=== PATIENT | female | born 1935 | race Caucasian/White ===

== ENCOUNTER 2023-04-20 18:04 | Emergency (ER) | payer MEDICARE, SELFPAY ==
[2023-04-20] VITALS (17 sets, daily range): BP systolic 160–200; BP diastolic 51–71; PULSE 59–69; RESP 17–30; TEMP 36.8; O2SAT 88–99
--- NOTE | ~2023-04-20 | XR_ITS ---
EXAMINATION: XR chest 1V portable DATE: 04/20/2023 21:29 INDICATION: Shortness of breath with productive cough TECHNIQUE: AP view of the chest was obtained COMPARISON: None FINDINGS: Left subclavian central venous port catheter with distal tip at the superior cavoatrial junction. Air space opacities in the right mid to lower and left lower lung zones. No pleural effusion or pneumotho rax. Cardiomegaly. IMPRESSION: 1. Opacities in the right mid to lower and left lower lung zones which could represent atelectasis, p neumonia, pulmonary edema or some combination thereof. 2. Cardiomegaly. Reviewed, dictated and finalized at location A. T COORDINATOR IMPRESSION: 1. Opacities in the right mid to lower and left lower lung zones which could re present atelectasis, pneumonia, pulmonary edema or some combination thereof. 2. Cardiomegaly.
--- NOTE | 2023-04-20 20:48 | ECG_ITS ---
Measurements Intervals [place] Rate: 64 P: 55 FL: 230 QRS: 72 QRSD: 93 T: 62 QT: 441 QTc: 457 Interpretive Statements SINUS RHYTHM WITH FIRST DEGREE AV BLOCK POSSIBLE LEFT ATRIAL ENLARGEMENT [-0.1mV P WAVE IN V1/V2] INCOMPLETE RIGHT BUNDLE BRANCH BLOCK [90+ ms QRS DURATION, TERMINAL R IN V1/V2, 40+ ms S IN I/aVL/V4/V5/V6] NONSPECIFIC ST ABNORMALITY ABNORMAL ECG NO PREVIOUS ECG AVAILABLE FOR COMPARISON Electronically Signed On 04-21-2023 16:55:16 MARKETING SYSTEMS MANAGER by Fede Chowdhury M.D.
--- NOTE | 2023-04-20 20:49 | ED.URI ---
HPI - URI/Sore Throat General Chief Complaint: Upper Respiratory Infection Stated Complaint: COUGH. LOW O2 Time Seen by Provider: 04/20/23 20:37 History of Present Illness HPI Narrative: Patient brought to the emergency department by her family. She denies history of asthma or COPD. However she has had shortness of breath and cough for the past 5 days. Started on azithromycin by her primary care provider and she is on day 4 with no improvement. Low-grade fever of 99 today at home. No other fevers noted. She has some chest wall discomfort with coughing. She gets short of breath when lying flat or ambulating. He is concerned that her oxygen has been dropping to high 80s at home. Related Data Allergies Allergy/AdvReac Type Severity Reaction Status Date / Time Penicillins Allergy Unknown Verified 04/20/23 21:27 Review of Systems Review of Systems: Negative except for what is documented in the HPI Exam Narrative: GENERAL: Well-appearing, well-nourished, and in no acute distress. wheezing heard HEAD: Normocephalic, atraumatic. EYES: PERRLA and EOMI. ENT: Nares clear, no rhinorrhea or epistaxis. Mucous membranes moist. NECK: Supple. CHEST: mild tachypnea and full cycle wheezing worse with expiration. No respiratory distress. HEART: Regular rate and rhythm. ABDOMEN: Soft, nontender, nondistended. EXTREMITIES: Normal range of motion. No edema. SKIN: Warm, dry, no rash. NEURO: No focal deficits. Alert and oriented x3. PSYCH: Normal mood and affect. Course Course Emergency Course: differential diagnosis includes but not limited to viral illness, bronchiolitis, pneumonia, new onset CHF exam less consistent with congestive heart failure. Labs EKG and chest x-ray ordered patient has full cycle wheezing but in no acute distress Vital Signs Vital signs: Vital Signs Temperature 36.8 C 04/20/23 18:48 Pulse Rate 60 04/20/23 18:48 Respiratory Rate 18 04/20/23 18:48 Blood Pressure 192/63 H 04/20/23 18:48 Pulse Oximetry 98 04/20/23 18:48 Oxygen Delivery Room Air 04/20/23 18:48 Temperature 36.8 C 04/20/23 18:48 Pulse Rate 64 04/21/23 00:02 Respiratory Rate 25 H 04/21/23 00:02 Blood Pressure 179/62 H 04/21/23 00:02 Pulse Oximetry 92 04/21/23 00:02 Oxygen Delivery Room Air 04/20/23 21:36 MDM - URI/Sore Throat MDM Narrative Medical decision making narrative: unclear etiology of patient's presentation. She ambulated and her oxygen levels improved and increased work of breathing resolved. No further wheezing. Chest x-ray shows atelectasis versus pneumonia versus fluid. BNP is very elevated. Family and patient states she does not have a history of congestive heart failure. She does have a supervisor beehive kiln that she can not follow-up with this week though. She is not on any supplemental oxygen. She has been on to the packs in the past few weeks per family. Concern for viral illness. Given option of staying for evaluation by Cardiology or going home for follow-up. Patient has a very reliable family structure and physicians that she can see quickly. Will DC with low-dose Lasix until she can see her supervisor beehive kiln as well as amoxicillin. Likely viral the patient's family members improved with amoxicillin. Will also DC with supportive medications. Strict return precautions discussed shared decision making with patient and family regarding plan for outpatient follow-up and when to return to the emergency department for further evaluation and possible admission Lab Data 04/20/23 21:17 04/20/23 21:17 Labs: Lab Results 04/20/23 04/20/23 Range/Units 20:28 21:17 WBC 12.3 H (4.5-10.0) K/mm3 RBC 3.74 L (4.2-5.4) M/mm3 Hgb 9.6 L (12.0-15.0) g/dL Hct 31.4 L (37.0-47.0) % MCV 84.0 (80-100) fl MCH 25.7 L (26-34) pg MCHC 30.6 L (32-36) g/dl RDW 16.2 H (11.5-14.5) % Plt Count 360 (150-375) k/mm3 MPV 9.4 (7.4-
[2023-04-20] MEDS: ALBUTEROL SULFATE NEB 2.5 MG/3 ML INH 5 MG INHALATION ×2 (21:05→22:37)
[2023-04-20 21:11] LABS: Influenza A QL RT-PCR Negative (Negative); Influenza B QL RT-PCR Negative (Negative); RSV RNA, RT-PCR Negative (Negative); SARS-CoV-2 RNA PCR Negative (Negative)
[2023-04-20 21:22] LABS: Basophils Absolute Auto 0.1 K/mm3 (0.0-0.1); Basophils Percent Auto 0.6 % (0.2-1.2); Eosinophils Absolute Auto 0.2 K/mm3 (0-0.3); Eosinophils Percent Auto 1.6 % (0-4.4); Hematocrit 31.4 % (37.0-47.0); Hemoglobin 9.6 g/dL (12.0-15.0); Immature Granulocyte Absolute 0.12 K/mm3 (0.00-0.031); Lymphocytes Percent Auto 14.6 % (18.3-44.2); Mean Corpuscular HGB Conc 30.6 g/dl (32-36); Mean Corpuscular Hemoglobin 25.7 pg (26-34); Mean Platelet Volume 9.4 fl (7.4-10.4); Monocytes Absolute Auto 1.3 K/mm3 (0.1-0.6); Monocytes Percent Auto 10.2 % (2.6-8.5); Neutrophils Absolute Auto 8.9 K/mm3 (1.3-6.7); Platelet Count Result 360 k/mm3 (150-375); Red Blood Count 3.74 M/mm3 (4.2-5.4); Red Cell Distribution Width 16.2 % (11.5-14.5); White Blood Count 12.3 K/mm3 (4.5-10.0)
[2023-04-20] MEDS: methylPREDNISolone SOD SUCC 125 MG VIAL IV PUSH (21:27)
[2023-04-20 21:35] LABS: Lactic Acid Reflex 0.9 mmol/L (0.7-2.0)
[2023-04-20 21:36] LABS: Alanine Aminotransferase 13 U/L (6-35); Albumin Level 3.6 g/dL (3.5-5.1); Alkaline Phosphatase 109 U/L (38-126); Anion Gap 11 mmol/L (8-16); Aspartate Amino Transferase 36 U/L (14-36); Bilirubin,Total 0.6 mg/dL (0.2-1.3); Blood Urea Nitrogen 38 mg/dL (7-17); Calcium 8.2 mg/dL (8.4-10.2); Carbon Dioxide 17 mmol/L (22-30); Chloride 106 mmol/L (98-107); Estimated CRCL calculation 22 ml/min; Estimated Glomerular Filt Rate 25; Glucose 170 mg/dL (65-110); Potassium 4.4 mmol/L (3.4-5.0); Sodium 134 mmol/L (137-145)
[2023-04-20 21:46] LABS: NT Pro B Type Natriuretic Pept 10300 pg/mL (19.9-100); Troponin I 0.027 ng/mL (0.000-0.034)
[2023-04-20 22:06] LABS: Procalcitonin 0.2 ng/mL
--- NOTE | 2023-04-20 22:20 | PC.NURSE ---
Resp notified of need for repeat neb. Pt cont to have wheezing.
[2023-04-20] MEDS: hydrALAZINE HCL 20 MG/ML VIAL 10 MG IV PUSH (22:29)
[2023-04-21 00:02] VITALS: BP 179/62; PULSE 64; RESP 25; O2SAT 92
[2023-04-21 00:03] VITALS: PULSE 63; RESP 28
[2023-04-21 00:24] VITALS: O2SAT 95
[2023-04-21 00:30] VITALS: O2SAT 96
== END 2023-04-21 00:56 | disposition home or self-care (01) ==
PROVIDERS: Emergency Provider Emergency Medicine; PCP Nurse Practitioner Family
DX: J06.9 Acute upper respiratory infection, unspecified (principal); R79.89 Other specified abnormal findings of blood chemistry; R91.8 Other nonspecific abnormal finding of lung field; Z20.822 Contact with and (suspected) exposure to COVID-19
CPT/HCPCS: 36415; 71045; 80053; 83605; 83880; 84145; 84484; 85025; 87637; 93005; 94640; 96374; 96375; 99284; J0360; J2930

== ENCOUNTER 2023-12-03 14:47 | Outpatient (CLI) | payer MEDICARE, SELFPAY ==
[2023-12-03 15:08] LABS: Basophils Percent Auto 0.6 % (0.2-1.2); Eosinophils Absolute Auto 0.3 K/mm3 (0-0.3); Eosinophils Percent Auto 4.5 % (0-4.4); Hematocrit 32.1 % (37.0-47.0); Immature Granulocyte Absolute 0.04 K/mm3 (0.00-0.031); Immature Granulocyte Percent A 0.6 % (0-0.5); Lymphocytes Absolute Auto 1.78 K/mm3 (0.9-3.2); Lymphocytes Percent Auto 27.4 % (18.3-44.2); Mean Corpuscular HGB Conc 31.2 g/dl (32-36); Mean Corpuscular Hemoglobin 27.2 pg (26-34); Mean Corpuscular Volume 87.2 fl (80-100); Mean Platelet Volume 8.9 fl (7.4-10.4); Monocytes Absolute Auto 0.6 K/mm3 (0.1-0.6); Monocytes Percent Auto 9.1 % (2.6-8.5); Neutrophils Absolute Auto 3.8 K/mm3 (1.3-6.7); Neutrophils Percent Auto 57.8 % (45.5-73.1); Platelet Count Result 261 k/mm3 (150-375); Red Blood Count 3.68 M/mm3 (4.2-5.4); Red Cell Distribution Width 15.1 % (11.5-14.5); White Blood Count 6.5 K/mm3 (4.5-10.0)
[2023-12-03 16:47] LABS: Iron 64 ug/dL (37-170)
[2023-12-03 16:52] LABS: Alanine Aminotransferase 15 U/L (6-35); Alkaline Phosphatase 77 U/L (38-126); Anion Gap 9 mmol/L (4-12); Aspartate Amino Transferase 18 U/L (14-36); Bilirubin,Total 0.4 mg/dL (0.2-1.3); Blood Urea Nitrogen 60 mg/dL (7-17); Carbon Dioxide 22 mmol/L (22-30); Chloride 106 mmol/L (98-107); Estimated Glomerular Filt Rate 27; Glucose 129 mg/dL (65-110); Lactate Dehydrogenase 178 U/L (120-246); Potassium 4.5 mmol/L (3.4-5.0); Sodium 137 mmol/L (137-145)
[2023-12-03 17:02] LABS: Percent Iron Saturation 23 % (20-50)
[2023-12-03 18:04] LABS: Folic Acid 4.3 ng/mL (2.76->20)
[2023-12-07 15:39] LABS: Methylmalonic Acid 338 nmol/L (85-423)
[2023-12-11 12:24] LABS: Soluble Transferrin Receptor 1.91 mg/L (0.76-1.76)
== END 2023-12-03 14:48 | disposition home or self-care (01) ==
LOC: ANHLAB 14:49
PROVIDERS: Nurse Practitioner Family; PCP Nurse Practitioner Family; Visit Provider Internal Medicine Hematology & Oncology
DX: N18.4 Chronic kidney disease, stage 4 (severe) (principal); D63.1 Anemia in chronic kidney disease
CPT/HCPCS: 36415; 80053; 82607; 82728; 82746; 83540; 83550; 83615; 83921; 84238; 85025

== ENCOUNTER 2025-02-27 14:44 | Emergency (ER) | payer MEDICARE, SELFPAY ==
--- NOTE | ~2025-02-27 | CT_ITS ---
CT abdomen pelvis wo con INDICATION:l lower back/flank pain, hx 1 kidney . COMPARISON: None. TECHNIQUE: Axial 2.5 mm images of the abdomen were obtained without IV or oral contrast. Diagnostic sensitivity is limited due to lack of IV contrast. FINDINGS: The lung bases are clear. The liver parenchyma is unremarkable. No intrahepatic mass or ductal dilatation is evident. The gallbladder is unremarkable. The pancreas and spleen are normal in appearance. The adrenal glands are symmetric in size. Right kidney is absent. Lobulated contour of the left kidney is noted. No intrarenal stones are noted. There is no hydronephrosis. Evaluation of the stomach and bowel loops are limited due to lack of oral contrast. There are no bowel obstruction or evidence of acute appendicitis. There is small hiatal hernia. There is colonic diverticulosis without evidence of acute diverticulitis. The bladder and rectum are normal. No free intraperitoneal fluid or air is evident. There is no significant retroperitoneal lymphadenopathy. The aorta, visceral vessels and renal arteries demonstrate normal caliber. The lower thoracic and lumbar vertebrae are in normal alignment. IMPRESSION: No acute abnormality is noted in the abdomen and pelvis. Colonic diverticulosis without evidence of acute diverticulitis. Right kidney is absent. There is lobulated contour of the left kidney. All CT scans at this facility are performed using low dose modulation techniques as appropriate to perform exam including the following: automated exposure control; use of iterative reconstruction technique; adjustment of the mA and/or kV according to patient size (this includes techniques or standardized protocols for targeted exams where dose is matched to indication/reason for exam). Reviewed, dictated and finalized at location S. IMPRESSION: No acute abnormality is noted in the abdomen and pelvis. Colonic diverticulosis without evidence of acute diverticulitis. Right kidney is absent. There is lobulated contour of the left kidney. All CT scans at this facility are performed using low dose modulation techniqu es as appropriate to perform exam including the following: automated exposure c ontrol; use of iterative reconstruction technique; adjustment of the mA and/or kV according to patient size (this includes techniques or standardized protocol s for targeted exams where dose is matched to indication/reason for exam).
[2025-02-27 14:50] VITALS: BP 224/67; PULSE 60; RESP 18; TEMP 36.7; O2SAT 99
--- NOTE | 2025-02-27 16:31 | ED_ITS ---
HPI - Back Pain/Injury General Chief Complaint: Back Pain/Injury <NESSA Gomes Last Filed: 02/27/25 16:49> Stated Complaint: back pain, hx kidney issues <NESSA Gomes Last Filed: 02/27/25 16:49> Time Seen by Provider: 02/27/25 16:31 <NESSA Gomes Last Filed: 02/27/25 16:49> Focused HPI: Patient is an 89 y/o female who presents to the ED with c/o L sided back pain. Patient reports having pain in her L mid back for the past 1.5 weeks. Family member at bedside reports patient recently went on a long car trip where she was sitting for a prolonged period and developed the pain afterwards. Pain does radiates across lower back and intermittently down LLE. Denies abd pain. Patient is concerned because she only has 1 kidney (left-sided) and states it functions at a decreased level. Was referred to the ED by her business analysis consultant, Dr. Del Valle. Denies dysuria, hematuria, N/V, fevers. Patient was notably hypertensive upon arrival. Family states patient's BP is always elevated at the doctor's office. GENERAL: Elderly, obese with BMI of 37.5, and in no acute distress. HEAD: Normocephalic, atraumatic. CHEST: Clear to auscultation. ?No respiratory distress. HEART: Regular rate and rhythm.? MSK: Mild diffuse tenderness in lower thoracic/lumbar spine, L flank region NEURO: ?Alert and oriented x3. Patient screened in triage and initial orders placed.? ?Additional care and disposition to be based upon?diagnostic testing and treatment. <NESSA Gomes Last Filed: 02/27/25 16:49> Source: patient <NESSA Gomes Last Filed: 02/27/25 16:49> Mode of arrival: ambulatory <NESSA Gomes Last Filed: 02/27/25 16:49> Limitations: no limitations <NESSA Gomes Last Filed: 02/27/25 16:49> Related Data Home Medications: Home Medications ?Medication ?Instructions ?Recorded ?Confirmed ?Last Taken ?Type amlodipine 10 mg tablet mg PO 01/20/24 04/20/24 Unkn own History calcitriol 0.25 mcg capsule mcg PO 01/20/24 04/20/24 U nknown History carvedilol 6.25 mg tablet mg PO 01/20/24 04/20/24 Unkn own History ezetimibe 10 mg tablet mg PO 01/20/24 04/20/24 Unkn own History insulin glargine 100 unit/mL (3 unit subcut 01/20/24 1 06/21/23 Unknown History mL) subcutaneous pen (Lantus Solostar U-100 Insulin) letrozole 2.5 mg tablet mg PO 01/20/24 04/20/24 Unkn own History losartan 100 mg tablet mg PO 01/20/24 04/20/24 Unkn own History warfarin 4 mg tablet mg PO 01/20/24 04/20/24 Unkn own History citalopram 20 mg tablet 20 mg PO DAILY 04/20/2404/10 Unknown History <Chapis Branham PA-C - Last Filed: 02/27/25 16:49> Allergies/Adverse Reactions: Allergies Allergy/AdvReac Type Severity Reaction Status Date / Time Penicillins AdvReac Severe Blister Verified 04/27/24 07:11 <Chapis Branham PA-C - Last Filed: 02/27/25 16:49> [facility] Past Medical History Medical History: Medical History Uterine fibroid Breast cancer History of kidney cancer <Chapis Branham PA-C - Last Filed: 02/27/25 16:49> Surgical History Surgical History: Surgical History History of lumpectomy H/O: hysterectomy <Chapis Branham PA-C - Last Filed: 02/27/25 16:49> Family History Family History: Family History Other Acute myocardial infarction Diabetes mellitus <Chapis Branham PA-C - Last Filed: 02/27/25 16:49> Social History Social History: Social History Smoking status: Never smoker Second hand tobacco smoke exposure: No Alcohol intake: never Substance use: never Substance use type: does not use Do You Feel Safe in your Home?: Yes Lack of Transportation: No Lack of Food: Never True Current Housing: I Have Housing Concerned About Future Housing: No Difficulty Paying Gas/Electric Bills: No Difficulty Paying for Meds: No Currently Unemployed: No Education: High School Diploma/GED Difficulty w/ Childcare or Family Care: No Living arrangements: with family Occupation/Education: retired Additional occupation/education comments: [employer] Gender identity (if verbalized by the patient): Female <NESSA Gomes Last Filed: 02/27/25 16:49> Course Vital Signs Vital signs: Vital Signs Temperature 36.7 C 02/27/25 14:50 Pulse Rate 60 02/27/25 14:50 Respiratory Rate 18 02/27/25 14:50 Blood Pressure 224/67 H 02/27/25 14:50 Pulse Oximetry 99 02/27/25 14:50 Oxygen Delivery Room Air 02/27/25 14:50 Temperature 35.5 C L 02/27/25 19:12 Pulse Rate 50 L 02/27/25 19:12 Respiratory Rate 19 02/27/25 19:12 Blood Pressure 217/67 H 02/27/25 19:12 Pulse Oximetry 98 02/27/25 19:12 Oxygen Delivery Room Air 02/27/25 14:50 <Chapis Branham PA-C - Last Filed: 02/27/25 16:49> Vital Signs Temperature 36.7 C 02/27/25 14:50 Pulse Rate 60 02/27/25 14:50 Respiratory Rate 18 02/27/25 14:50 Blood Pressure 224/67 H 02/27/25 14:50 Pulse Oximetry 99 02/27/25 14:50 Oxygen Delivery Room Air 02/27/25 14:50 Temperature 35.5 C L 02/27/25 19:12 Pulse Rate 50 L 02/27/25 19:12 Respiratory Rate 19 02/27/25 19:12 Blood Pressure 217/67 H 02/27/25 19:12 Pulse Oximetry 98 02/27/25 19:12 Oxygen Delivery Room Air 02/27/25 14:50 <Dick Menjivar MD - Last Filed: 02/28/25 02:46> MDM - Back Pain/Injury MDM Narrative Medical decision making narrative: MSE bY JAIME in triage. <MARGE Gomes-C - Last Filed: 02/27/25 16:49> MSE bY JAIME in triage. 89 y/o female who presents to the ED with c/o L sided back pain. Patient reports having pain in her L mid back for the past 1.5 weeks. Family member at bedside reports patient recently went on a long car trip where she was sitting for a prolonged period and developed the pain afterwards. Pain does radiates across lower back and intermittently down LLE. Denies abd pain. Patient is concerned because she only has 1 kidney (left-sided) and states it functions at a decreased level. Was referred to the ED by her business analysis consultant, Dr. Del Valle. Denies dysuria, hematuria, N/V, fevers. Patient is overall well-appearing. Chronic hypertension. Did not take her evening medications yet. No chest pain, shortness of breath, nausea vomiting, swelling, weakness, fatigue or any stroke symptoms. Patient is afebrile. Unremarkable physical examination. Some reproducible low lumbar back pain and paraspinal in the left side but no midline tenderness. No CVA tenderness. Suspect musculoskeletal pain but given her significant medical history well to rule out kidney stone, pyelonephritis, urinary tract infection. CT scan obtained as well as laboratory studies urinalysis. Urinalysis shows signs of UTI. Kidney function around her baseline with her solitary kidney. CT scan shows no abnormalities. Started on Rocephin and safe for discharge with PCP and her follow-up with her business analysis consultant already scheduled for 2 weeks from now. Will be sent home with antibiotics. <Dick Menjivar MD - Last Filed: 02/28/25 02:46> Medical Records Attestation: I reviewed the patient's medical records. <Dick Menjivar MD - Last Filed: 02/28/25 02:46> Lab Data Attestation: I reviewed the patient's lab results. <Dick Menjivar MD - Last Filed: 02/28/25 02:46> Result diagrams: 02/27/25 17:40 02/27/25 17:40 <Chapis Branham PA-C - Last Filed: 02/27/25 16:49> Labs: Lab Results 02/27/25 02/27/25 Range/Units 17:40 19:45 WBC 6.8 (4.5-10.0) K/mm3 RBC 3.69 L (4.2-5.4) M/mm3 Hgb 9.4 L (12.0-15.0) g/dL Hct 31.0 L (37.0-47.0) % MCV 84.0 (80-100) fl MCH 25.5 L (26-34) pg MCHC 30.3 L (32-36) g/dl RDW 17.4 H (11.5-14.5) % Plt Count 276 (150-375) k/mm3 MPV 9.5 (7.4-10.4) fl Immature Gran % (Auto) 0.3 (0-0.5) % Neut % (Auto) 50.9 (45.5-73.1) % Lymph % (Auto) 32.9 (18.3-44.2) % [place] % (Auto) 9.0 H (2.6-8.5) % Eos % (Auto) 6.2 H (0-4.4) % Baso % (Auto) 0.7 (0.2-1.2) % Lymph # (Auto) 2.23 (0.9-3.2) K/mm3 [place] # (Auto) 0.6 (0.1-0.6) K/mm3 Eos # (Auto) 0.4 H (0-0.3) K/mm3 Baso # (Auto) 0.1 (0.0-0.1) K/mm3 Abs Immat Gran (auto) 0.02 (0.00-0.031) K/mm3 Absolute Neuts (auto) 3.5 (1.3-6.7) K/mm3 Absolute Nucleated RBC 0.000 (0.0-0.012) K/mm3 Nucleated RBC % 0.0 (0.0-0.2) % PT 26.1 H (11.1-14.7) Seconds INR 2.5 APTT 40.5 H (22.3-36.8) Seconds Sodium 137 (137-145) mmol/L Potassium 4.6 (3.4-5.0) mmol/L Chloride 108 H (98-107) mmol/L Carbon Dioxide 19 L (22-30) mmol/L Anion Gap 10 (4-12) mmol/L BUN 49 H D (7-17) mg/dL Creatinine 1.97 H (0.7-1.0) mg/dL Estim Creat Clear Calc 19 ml/min Estimated GFR 24 L (59 - ) Glucose 132 H (65-110) mg/dL Calcium 8.7 (8.4-10.2) mg/dL Total Bilirubin 0.5 (0.2-1.3) mg/dL AST 22 (14-36) U/L ALT 14 (6-35) U/L Alkaline Phosphatase 98 (38-126) U/L Total Protein 7.2 (6.3-8.2) g/dL Albumin 3.7 (3.5-5.1) g/dL Urine Color Yellow (Yellow) Urine Appearance Turbid H (Clear) Urine pH 5.5 (5.0-9.0) Ur Specific [place] 1.011 (1.001-1.035) Urine Protein 3+ H (Negative) mg/dL Urine Glucose (UA) Negative (Negative) mg/dL Urine Ketones Negative (Negative) mg/dL Ur Blood (Man) 1+ H (Negative) Urine Nitrate Negative (Negative) Urine Bilirubin Negative (Negative) Urine Urobilinogen 0.2 (<2.0) mg/dL Add Ur Microanalysis Reviewed Leukocyte Esterase Rfl 3+ H (Negative) AIDA/UL Urine RBC 3-5 H (0-2) /hpf Urine WBC >100 H (0-3) /hpf Ur Squamous Epith Cells None seen (Few) /hpf Urine Bacteria None seen /hpf Urine Casts 0-2 <Chapis Branham PA-C - Last Filed: 02/27/25 16:49> Lab Results 02/27/25 02/27/25 Range/Units 17:40 19:45 WBC 6.8 (4.5-10.0) K/mm3 RBC 3.69 L (4.2-5.4) M/mm3 Hgb 9.4 L (12.0-15.0) g/dL Hct 31.0 L (37.0-47.0) % MCV 84.0 (80-100) fl MCH 25.5 L (26-34) pg MCHC 30.3 L (32-36) g/dl RDW 17.4 H (11.5-14.5) % Plt Count 276 (150-375) k/mm3 MPV 9.5 (7.4-10.4) fl Immature Gran % (Auto) 0.3 (0-0.5) % Neut % (Auto) 50.9 (45.5-73.1) % Lymph % (Auto) 32.9 (18.3-44.2) % [place] % (Auto) 9.0 H (2.6-8.5) % Eos % (Auto) 6.2 H (0-4.4) % Baso % (Auto) 0.7 (0.2-1.2) % Lymph # (Auto) 2.23 (0.9-3.2) K/mm3 [place] # (Auto) 0.6 (0.1-0.6) K/mm3 Eos # (Auto) 0.4 H (0-0.3) K/mm3 Baso # (Auto) 0.1 (0.0-0.1) K/mm3 Abs Immat Gran (auto) 0.02 (0.00-0.031) K/mm3 Absolute Neuts (auto) 3.5 (1.3-6.7) K/mm3 Absolute Nucleated RBC 0.000 (0.0-0.012) K/mm3 Nucleated RBC % 0.0 (0.0-0.2) % PT 26.1 H (11.1-14.7) Seconds INR 2.5 APTT 40.5 H (22.3-36.8) Seconds Sodium 137 (137-145) mmol/L Potassium 4.6 (3.4-5.0) mmol/L Chloride 108 H (98-107) mmol/L Carbon Dioxide 19 L (22-30) mmol/L Anion Gap 10 (4-12) mmol/L BUN 49 H D (7-17) mg/dL Creatinine 1.97 H (0.7-1.0) mg/dL Estim Creat Clear Calc 19 ml/min Estimated GFR 24 L (59 - ) Glucose 132 H (65-110) mg/dL Calcium 8.7 (8.4-10.2) mg/dL Total Bilirubin 0.5 (0.2-1.3) mg/dL AST 22 (14-36) U/L ALT 14 (6-35) U/L Alkaline Phosphatase 98 (38-126) U/L Total Protein 7.2 (6.3-8.2) g/dL Albumin 3.7 (3.5-5.1) g/dL Urine Color Yellow (Yellow) Urine Appearance Turbid H (Clear) Urine pH 5.5 (5.0-9.0) Ur Specific [place] 1.011 (1.001-1.035) Urine Protein 3+ H (Negative) mg/dL Urine Glucose (UA) Negative (Negative) mg/dL Urine Ketones Negative (Negative) mg/dL Ur Blood (Man) 1+ H (Negative) Urine Nitrate Negative (Negative) Urine Bilirubin Negative (Negative) Urine Urobilinogen 0.2 (<2.0) mg/dL Add Ur Microanalysis Reviewed Leukocyte Esterase Rfl 3+ H (Negative) AIDA/UL Urine RBC 3-5 H (0-2) /hpf Urine WBC >100 H (0-3) /hpf Ur Squamous Epith Cells None seen (Few) /hpf Urine Bacteria None seen /hpf Urine Casts 0-2 <Dick Menjivar MD - Last Filed: 02/28/25 02:46> Discharge Plan Discharge Clinical Impression: UTI (urinary tract infection) <Chapis Branham PA-C - Last Filed: 02/27/25 16:49> Patient Disposition: Home <Chapis Branham PA-C - Last Filed: 02/27/25 16:49> Condition: Stable <Chapis Branham PA-C - Last Filed: 02/27/25 16:49> Instructions: Antibiotic Form, Urinary Tract Infection in Women (DC) <Chapis Branham PA-C - Last Filed: 02/27/25 16:49> Additional Instructions: You do not have any bacteria in the urine but large amounts of white blood cells and leukocyte esterase which are markers of infection. We will treat this empirically with antibiotics for next 7 days. Maintain good hydration. Take your blood pressure medicines when you go home. Return with any fevers, nausea, vomiting, abdominal pain, weakness or any other concerns. Follow-up with regular doctor and business analysis consultant. <Chapis Branham PA-C - Last Filed: 02/27/25 16:49> Patient Language: Armenian <Chapis Branham PA-C - Last Filed: 02/27/25 16:49> Prescriptions: New cefuroxime axetil 500 mg tablet 500 mg PO Q12H 7 Days Qty: 14 0RF No Action amlodipine 10 mg tablet PO ezetimibe 10 mg tablet PO losartan 100 mg tablet PO warfarin 4 mg tablet PO calcitriol 0.25 mcg capsule PO insulin glargine [Lantus Solostar U-100 Insulin] 100 unit/mL (3 mL) insulin pen subcut letrozole 2.5 mg tablet PO carvedilol 6.25 mg tablet PO citalopram 20 mg tablet 20 mg PO DAILY <Chapis Branham PA-C - Last Filed: 02/27/25 16:49> Follow-up/Referrals: Max,MD Carrie [Primary Care Provider, Unknown] <Chapis Branham PA-C - Last Filed: 02/27/25 16:49> Time of Disposition: 20:35 <Chapis Branham PA-C - Last Filed: 02/27/25 16:49> 20:35 <Dick Menjivar MD - Last Filed: 02/28/25 02:46>
--- NOTE | 2025-02-27 16:45 | ECG_ITS ---
Test Date: 2025-02-27 17:40:32 Measurements Intervals [place] Rate: 58 P: 45 VT: 243 QRS: 69 QRSD: 87 T: 73 QT: 445 QTc: 440 Interpretive Statements SINUS BRADYCARDIA WITH FIRST DEGREE AV BLOCK WITH OCCASIONAL SUPRAVENTRICULAR PREMATURE COMPLEXES POSSIBLE RIGHT VENTRICULAR CONDUCTION DELAY DELAYED PRECORDIAL R/S TRANSITION CANNOT R/O SEPTAL INFARCT, AGE INDETERMINATE CONSIDER INFERIOR INFARCT, AGE INDETERMINATE BASELINE ARTIFACT- I, II, AVR, AVL ABNORMAL ECG No previous ECG available for comparison Electronically Signed On 02-27-2025 19:43:11 CDT by Wilber Dyer D.O.
--- OUTSIDE RECORDS SUMMARY | 2025-02-27 17:13 | XMS_ITS ---
Author [place] [facility] [place] [facility] Address [address] [place] [address] Care Team Providers Care Political Geographer Name Role Phone Sarah Hardin MD Unavailable Humaira Amato MD Unavailable [phone] Berna Conte PhD Unavailable [phone] Qi Hope MD Unavailable [phone] Anuel Del Valle DO Unavailable [phone] Ag Santana MD Primary Care Provide r Jason Robles MD Unavailable [phone] Active Problems Problem Noted Date Diagnosed Date Hypertension associated with type 2 diabetes emily litus 12/14/2023 Assessment & Plan (12/14/2023 1:48 PM CDT): Chronic problem. Currently taking carvedilol 6.25mg bid, losartan 100mg daily, amlodipine 10mg daily. Renal is fuentes her spironolactone. 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 Had FNA 05/2019: benign. US completed 05/2020 w/o changes; shows multinodular goiter. TFTs WNL 10/2023. Assessment & Plan (07/13/2023 1:35 PM LEGISLATIVE DIRECTOR): S/p right thyroid nodule FNA biopsy 06/07/2019 Benign cytology Repeat follow up thyroid ultrasound performed 05/2020 noted stable thyroid nodules No compression symptoms Continue clinical monitoring Assessment & Plan (01/06/2023 2:02 PM CDT): No compressive symptoms. Had FNA 05/2019: benign. US completed 05/2020 w/o changes; shows multinodular goiter. Assessment & Plan (06/02/2022 10:38 AM LEGISLATIVE DIRECTOR): S/p right thyroid nodule FNA biopsy 06/07/2019 Benign cytology Repeat follow up thyroid ultrasound performed 05/2020 noted stable thyroid nodules No compression symptoms Assessment & Plan (12/03/2020 8:37 PM CDT): S/p right thyroid nodule FNA biopsy 06/07/2019 Benign cytology No compression symptoms Repeat follow up thyroid ultrasound performed 05/2020 noted stable thyroid nodules Assessment & Plan (08/13/2020 8:30 PM CDT): S/p right thyroid nodule FNA biopsy 06/07/2019 Benign cytology No compression symptoms Repeat follow up thyroid ultrasound performed 05/2020 noted stable thyroid nodules Assessment & Plan (06/06/2020 8:35 AM LEGISLATIVE DIRECTOR): S/p right thyroid nodule FNA biopsy 06/07/2019 Benign cytology No compression symptoms Repeat follow up thyroid ultrasound performed today in office, noted stable thyroid nodules Assessment & Plan (04/13/2020 9:50 AM LEGISLATIVE DIRECTOR): S/p right thyroid nodule FNA biopsy 06/07/2019 Benign cytology No compression symptoms Repeat follow up thyroid ultrasound during next follow up visit Assessment & Plan (11/21/2019 4:11 PM CDT): S/p right thyroid nodule FNA biopsy 06/07/2019 Benign cytology No compression symptoms Recheck TSH Repeat follow up thyroid ultrasound during next follow up visit Assessment & Plan (03/25/2019 12:33 AM LEGISLATIVE DIRECTOR): Noted right thyroid nodule on PET scan 05/2018 Performed a thyroid ultrasound in office today - see full report Bilateral thyroid nodules Plan to perform FNA biopsy of bilateral thyroid nodules No compression symptoms Abscess of right breast 12/03/2018 Encounter for follow-up surveillance of breast c ancer 11/15/2018 Malignant neoplasm of right female breast 2018 Overview (09/06/2018): Added automatically from request for surgery [id number] 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 Zetia 10mg daily. Chronic problem. Last lipid panel: 08/26/21 XPJ=057, QO=712. Labs completed 10/[address] Isidro Del Valle (see note) Assessment & Plan (07/13/2023 1:35 PM LEGISLATIVE DIRECTOR): LDL - high Pt intolerant to statin - on Zetia 10 mg oral daily Assessment & Plan (01/06/2023 1:36 PM CDT): Intolerance to statin therapy. Chronic problem. Last lipid panel: 08/26/21 SSP=321, SX=884. Assessment & Plan (06/02/2022 10:36 AM LEGISLATIVE DIRECTOR): LDL - high Pt intolerant to statin - on Zetia 10 mg oral daily Assessment & Plan (08/26/2021 4:03 PM CDT): LDL - high Pt intolerant to statin - on Zetia 10 mg oral daily Assessment & Plan (12/03/2020 8:34 PM CDT): LDL - high Pt intolerant to statin - on Zetia 10 mg oral daily Assessment & Plan (08/13/2020 11:41 AM CDT): LDL - high Pt intolerant to statin - on Zetia 10 mg oral daily Assessment & Plan (06/06/2020 8:35 AM LEGISLATIVE DIRECTOR): LDL - high Pt intolerant to statin - on Zetia 10 mg oral daily Assessment & Plan (04/13/2020 9:49 AM LEGISLATIVE DIRECTOR): LDL - high Pt intolerant to statin - on Zetia 10 mg oral daily Assessment & Plan (11/21/2019 4:12 PM CDT): LDL - high Pt intolerant to statin - on Zetia 10 mg oral daily Assessment & Plan (03/21/2019 10:21 PM LEGISLATIVE DIRECTOR): LDL - high Pt intolerant to statin - on Zetia 10 mg oral daily Assessment & Plan (09/14/2018 12:30 PM CDT): LDL - high Pt intolerant to statin - on Zetia 10 mg oral daily Assessment & Plan (06/13/2018 7:15 PM LEGISLATIVE DIRECTOR): LDL - high Pt intolerant to statin - on Zetia 10 mg oral daily Assessment & Plan (02/15/2018 3:10 PM CDT): LDL - high Pt intolerant to statin - on Zetia 10 mg oral daily Assessment & Plan (11/09/2017 10:05 PM CDT): LDL - high Pt intolerant to statin - discussed with pt. Alternate options - consider trial of Zetia 10 mg oral daily Assessment & Plan (08/17/2017 11:55 PM CDT): High TG > 500 , checked in office today Pt. On over the counter fish oil Will start pt. 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 Controlled on current regimen. A1c at goal w/o hypoglycemia (7.1%). Current medications: Lantus 7 units nightly Very poor vision bilaterally. No further eye exams. Had exam last year at [facility] 01/08/23 (no DMR). Labs completed 10/[address] Isidro Del Valle (see note) Strive for regular exercise (30min most days) and diet (get at least 4-5 servings of fruit and veggies daily, avoid processed foods, increase lean protein intake and decrease carb portions as well as fruit juices, regular soda & desserts). Watch carbs and simple sugars. Check the blood sugar Freestyle Armen. Check the feet daily for skin breakdown and infection. 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 Losartan 100mg. Last MA: 12/29/22 (1140). Last creat/GFR: 12/29/22 GFR=30, CR=1.64. managed by Dr Isidro Del Valle (renal) Assessment & Plan (07/13/2023 1:36 PM LEGISLATIVE DIRECTOR): Chronic, slight worsening A1c 7.6% Reviewed CGM download Noted postprandial hyperglycemia Counseled on her diet Advised to cutback on simple carbs/deserts Continue current dose of Lantus Try to obtain patient recent lab results from PCP Follow-up in 6 months Assessment & Plan (01/06/2023 2:01 PM CDT): Chronic problem. Controlled on current regimen. A1c at goal w/o hypoglycemia (7.0%). Current medications: Lantus 15 units nightly Very poor vision bilaterally. No further eye exams. Had exam last year at [facility]. Will send letter to get copy of report. Had labs recently for Dr Isidro Del Valle. Release signed to get copy of report. Strive for regular exercise (30min most days) and diet (get at least 4-5 servings of fruit and veggies daily, avoid processed foods, increase lean protein intake and decrease carb portions as well as fruit juices, regular soda & desserts). Watch carbs and simple sugars. Check the blood sugar Freestyle Armen. Check the feet daily for skin breakdown and infection. Assessment & Plan (06/02/2022 10:44 AM LEGISLATIVE DIRECTOR): Chronic, overall fair controlled for pt age HbA1c - 7.1 % Reviewed freestyle armen download 78 % in target range Mild immediate post prandial hyperglycemia noted after meals Counseled on diet, portion control on carb, avoid unhealthy snacking Advise to decrease Lantus to 14 units SQ daily - keep checking Blood sugars - follow up in 6 months Assessment & Plan (08/26/2021 4:03 PM CDT): Chronic, overall fair controlled for pt age HbA1c - 7.6 % Counseled on diet, portion control on carb, avoid unhealthy snacking Continue Lantus 18 units SQ daily - Humalog 6 units Three times with meals + below correctinal scale 151 - 200 + 2 units 201 - 250 + 3 units 251 - 300 + 4 units 301 - 350 + 5 units Over 351 + 6 units - keep checking Blood sugars - follow up in 6 months Assessment & Plan (12/03/2020 8:38 PM CDT): Chronic, uncontrolled, improving HbA1c - 7.0 % Counseled on diet, portion control on carb, avoid unhealthy snacking Continue Lantus 18 units SQ daily - Humalog 6 units Three times with meals + below correctinal scale 151 - 200 + 2 units 201 - 250 + 3 units 251 - 300 + 4 units 301 - 350 + 5 units Over 351 + 6 units - keep checking Blood sugars - follow up in 6 months Assessment & Plan (08/13/2020 11:47 AM CDT): Chronic, uncontrolled, worsening HbA1c - 8.0 % Counseled on diet, portion control on carb, avoid unhealthy snacking Increase Lantus 20 units SQ daily - increase Humalog 6-8 units Three times with meals + below correctinal scale 151 - 200 + 2 units 201 - 250 + 3 units 251 - 300 + 4 units 301 - 350 + 5 units Over 351 + 6 units - keep checking Blood sugars - send blood sugar in 6 weeks - follow up in 3 months Assessment & Plan (06/06/2020 8:35 AM LEGISLATIVE DIRECTOR): Chronic, uncontrolled, worsening HbA1c - 8.0 % Counseled on diet, portion control on carb, avoid unhealthy snacking Increase Lantus 24 units SQ daily - increase Humalog 8-10 units Three times with meals + below correctinal scale 151 - 200 + 2 units 201 - 250 + 3 units 251 - 300 + 4 units 301 - 350 + 5 units Over 351 + 6 units - keep checking Blood sugars - send blood sugar in 6 weeks - follow up in 3 months Assessment & Plan (04/13/2020 9:49 AM LEGISLATIVE DIRECTOR): Chronic, uncontrolled, worsening HbA1c - 7.2 % - stop Glimepiride - continue Lantus 18 units SQ daily - start Humalog 6 units Three times with meals + below correctinal scale 151 - 200 + 2 units 201 - 250 + 3 units 251 - 300 + 4 units 301 - 350 + 5 units Over 351 + 6 units - send blood sugar log in 3 weeks - follow up in 8 weeks as scheduled Assessment & Plan (11/21/2019 4:10 PM CDT): Diabetes is chronic, overall well controlled , without hypoglycemia . A1c - 6.8 % Advised to C/w Touejo to 10 units SQ daily C/w Glimepiride with meals ( skip if not eating ) Continue current treatment regimen. Reminded to bring in blood sugar diary at next visit. Dietary recommendations for ADA diet. Regular aerobic exercise. Discussed ways to avoid symptomatic hypoglycemia. Discussed sick day management. Discussed foot care. Reminded to get yearly retinal exam. Diabetes will be reassessed in 6 months. Assessment & Plan (03/21/2019 10:19 PM LEGISLATIVE DIRECTOR): Diabetes is improving with treatment. A1c - 6.8 % Advised to C/w Touejo to 10 units SQ daily C/w Glimepiride with meals ( skip if not eating ) Continue current treatment regimen. Reminded to bring in blood sugar diary at next visit. Dietary recommendations for ADA diet. Regular aerobic exercise. Discussed ways to avoid symptomatic hypoglycemia. Discussed sick day management. Discussed foot care. Reminded to get yearly retinal exam. Diabetes will be reassessed in 3 months. Assessment & Plan (09/14/2018 12:30 PM CDT): Diabetes is improving with treatment. A1c - 6.2 % Advised to decrease Touejo to 10 units SQ daily C/w Glimepiride with meals ( skip if not eating ) Reminded to bring in blood sugar diary at next visit. Dietary recommendations for ADA diet. Regular aerobic exercise. Discussed ways to avoid symptomatic hypoglycemia. Discussed sick day management. Discussed foot care. Reminded to get yearly retinal exam. Medication changes per orders. Diabetes will be reassessed in 3 months. Assessment & Plan (06/13/2018 7:15 PM LEGISLATIVE DIRECTOR): Diabetes is chronic, overall well controlled for pt age . HbA1c - 7.7 % Advised to stop Glimpeirde if having any low BS less than 90 Continue current treatment regimen. Reminded to bring in blood sugar diary at next visit. Dietary recommendations for ADA diet. Regular aerobic exercise. Discussed ways to avoid symptomatic hypoglycemia. Discussed sick day management. Discussed foot care. Reminded to get yearly retinal exam. Diabetes will be reassessed in 3 months. Assessment & Plan (02/15/2018 3:13 PM CDT): Diabetes is improving with treatment. A1c today - 7.4 % Reviewed BS log Complicated by Post prandial hyperglycemia And mid night hypoglycemia - advised to decrease Toujeo insulin to 20 units SQ daily - c./w Glimepiride 2 mg oral BID ' - advised to call us back and notify if pt still having any Low with above changes Reminded to bring in blood sugar diary at next visit. Dietary recommendations for ADA diet. Regular aerobic exercise. Discussed ways to avoid symptomatic hypoglycemia. Discussed sick day management. Discussed foot care. Reminded to get yearly retinal exam. Medication changes per orders. Diabetes will be reassessed in 3 months. Assessment & Plan (11/09/2017 9:58 PM CDT): Diabetes is worsening. A1c today - 7.9 % Reviewed BS log - post prandial hyperglycemia - advised to continue current dose of basal insulin - increase glimepiride 2 mg oral to BID with meals - advise to work on diet and increase physical activity - follow up in 3 months Reminded to bring in blood sugar diary at next visit. Dietary recommendations for ADA diet. Regular aerobic exercise. Discussed ways to avoid symptomatic hypoglycemia. Discussed sick day management. Discussed foot care. Reminded to get yearly retinal exam. Medication changes per orders. Diabetes will be reassessed in 3 months. Assessment & Plan (08/17/2017 11:54 PM CDT): Diabetes is fairly controlled , A1c today - 7.2 % . - reviewed BS , at goal for pt. Age - no hypoglycemia noted - but will stop Januvia , as pt had high TG and there is a increased risk for pancreatitis - increase Toujeo insulin to 30 units SQ daily at bedtime - c/w Glimepiride 2 mg oral daily with breakfast ( if hypoglycemia noted , very low threshold to stop it Reminded to bring in blood sugar diary at next visit. Dietary recommendations for ADA diet. Regular aerobic exercise. Discussed ways to avoid symptomatic hypoglycemia. Discussed sick day management. Discussed foot care. Reminded to get yearly retinal exam. Medication changes per orders. Diabetes will be reassessed in 3 months. Assessment & Plan (05/25/2017 7:39 PM LEGISLATIVE DIRECTOR): Diabetes is improving, but occasionally complicated by mid day hypoglycemia . , ckd stage 3 A1c today 6.8 % - stop Glimepiride - Tresiba or Toujeo insulin 15 units SQ nightly - start Januvia 50 mg oral daily - obtain recent blood work results Reminded to bring in blood sugar diary at next visit. Dietary recommendations for ADA diet. Regular aerobic exercise. Discussed ways to avoid symptomatic hypoglycemia. Discussed sick day management. Discussed foot care. Reminded to get yearly retinal exam. Medication changes per orders. Diabetes will be reassessed in 3 months. Assessment & Plan (12/22/2016 1:56 PM CDT): - HbA1c - 7.2 % - advise to continue Tresiba 15 units SQ daily at bedtime - advise to continue Glimepiride current dose - advise to follow up with eye doctor - daily foot care - fall precautions - follow up in May 2017 Diabetes is improving with treatment. Continue current treatment regimen. Reminded to bring in blood sugar diary at next visit. Dietary recommendations for ADA diet. Regular aerobic exercise. Discussed ways to avoid symptomatic hypoglycemia. Discussed sick day management. Discussed foot care. Reminded to get yearly retinal exam. Diabetes will be reassessed in 5 months . 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 Controlled on current Carvedilol 6.25mg bid, losartan 100mg daily, amlodipine 10mg daily Managed by Dr Isidro Del Valle (nephro). Has appt next Thursday. Sees him q4 mos. Assessment & Plan (06/02/2022 10:36 AM LEGISLATIVE DIRECTOR): Chronic, well controlled Assessment & Plan (08/26/2021 4:04 PM CDT): Chronic, improving control Pt following with [facility] Assessment & Plan (12/03/2020 8:34 PM CDT): Chronic, improving control Pt following with [facility] Assessment & Plan (08/13/2020 8:32 PM CDT): Chronic, uncontrolled, worsening Pt following with [facility] Advised to start taking Losartan 50 mg as she was prescribed Advised home BP monitoring Assessment & Plan (06/06/2020 8:36 AM LEGISLATIVE DIRECTOR): Chronic, improving with treatment Continue current medications Assessment & Plan (04/13/2020 9:50 AM LEGISLATIVE DIRECTOR): Chronic, improving with treatment Continue current medications Assessment & Plan (11/21/2019 4:12 PM CDT): Chronic, improving with treatment Continue current medications Assessment & Plan (03/21/2019 10:24 PM LEGISLATIVE DIRECTOR): Chronic, improving with treatment Continue current medications Assessment & Plan (09/14/2018 12:30 PM CDT): Well controlled for pt age Assessment & Plan (06/13/2018 7:15 PM LEGISLATIVE DIRECTOR): Well controlled for pt age Assessment & Plan (02/15/2018 3:10 PM CDT): Well controlled for pt age Assessment & Plan (08/17/2017 11:50 PM CDT): Bp slightly high today, but pt. Is lot of back pain today - and also appropriate for pt, age Recheck during next visit Assessment & Plan (12/22/2016 1:55 PM CDT): Bp slightly high today, but pt. Is lot of back pain today - and also appropriate for pt, age Recheck during next visit CKD (chronic kidney disease) 12/22/2016 Assessment & Plan (12/03/2020 8:34 PM CDT): Chronic, stable Follows with [facility] Assessment & Plan (06/06/2020 8:36 AM LEGISLATIVE DIRECTOR): Chronic, stable Follows with [facility] Assessment & Plan (04/13/2020 9:50 AM LEGISLATIVE DIRECTOR): Chronic, stable Follows with [facility] Assessment & Plan (11/21/2019 4:10 PM CDT): Chronic, stable Assessment & Plan (03/21/2019 10:21 PM LEGISLATIVE DIRECTOR): Chronic, stable Assessment & Plan (09/14/2018 12:30 PM CDT): Follows with Dr. Leopoldo MCCAIN ( construction cost estimator ) Assessment & Plan (06/13/2018 7:15 PM LEGISLATIVE DIRECTOR): Follows with Dr. Leopoldo MCCAIN ( construction cost estimator ) Assessment & Plan (02/15/2018 3:10 PM CDT): Follows with Dr. Leopoldo MCCAIN ( construction cost estimator ) Assessment & Plan (08/17/2017 11:50 PM CDT): Follows with Dr. Leopoldo MCCAIN ( construction cost estimator ) Assessment & Plan (12/22/2016 1:55 PM CDT): Follows with Dr. Leopoldo MCCAIN ( construction cost estimator ) Current Treatment and Therapy Plans No current plan information found. Past Treatment and Therapy Plans Oncology Chemotherapy Treatment Plan Name Start Date Discontinue Date Treatment Medications Discontinue Reason Plan Provider Cycles Trastuzumab 21 Day Cycles (Adjuvant) - Breast 06/03/19 19 06/16/2019 pertuzumab (PERJETA) IVPBtrastuzumab (HERCEPTIN)trastu zumab (HERCEPTIN) IVPB Therapy Complete Qi Hope MD 17 of 18 cycles completed Oncology Supportive Care Therapy Plan Plan Name Start Date Discontinue Date Treatment Medications Discontinue Reason Plan Provider HYDRATION THERAPY PLAN 08/11/2018 07/21/2023 No medications scheduled. Automatic discontinuation of dormant plans Qi Hope MD Radiation Treatments * Course C1 R BREAST 2019 01/13/2019 - 02/04/2019 Treatment Period Energy Fraction Dose Fractions Total Dose Plans Planned REVISED BRS 01/28/2019 - 02/04/2019 266 6 / 1,596 R BREAST 01/13/2019 - 01/27/2019 266 10 / 4,256 Reference Points Delivered VALENCIA DPV 01/13/2019 - 02/04/2019 4,256 Lifetime Dose Tracking * Chemical Lifetime Dose Automatic Entry Manual Entr y Fluoro Time 2.6 minutes 2.6 minutes 0 minutes Air kerma at the reference point (Ka,r) 2.74 mGy 2 .74 mGy 0 mGy Resolved Problems Problem Noted Date Diagnosed Date Resolved Date Morbid (severe) obesity due to excess calories 12/14/2023 12/14/2023 Multinodular goiter 06/07/2019 10/07/19 25 Morbid obesity with BMI of 40.0-44.9, adult 12/22/2016 12/14/2023 Assessment & Plan (06/02/2022 10:36 AM LEGISLATIVE DIRECTOR): Counseled on diet exercises is a limitation Assessment & Plan (08/26/2021 4:04 PM CDT): Counseled on diet exercises is a limitation Assessment & Plan (12/03/2020 8:37 PM CDT): Counseled on diet Exercise is a limitation Assessment & Plan (08/13/2020 8:32 PM CDT): Counseled on diet Exercise is a limitation Assessment & Plan (06/06/2020 8:35 AM LEGISLATIVE DIRECTOR): Counseled on diet and exercise Assessment & Plan (11/21/2019 4:12 PM CDT): Chronic, worsening Discussed about healthy lifestyle habits advise to work on healthy diet, avoid processed foods , increase vegetables and protein and cut back on carb portions and also avoid fruit juices and regular soda and desserts - exercise is a limitation Assessment & Plan (03/21/2019 10:21 PM LEGISLATIVE DIRECTOR): Chronic, worsening Discussed about healthy lifestyle habits advise to work on healthy diet, avoid processed foods , increase vegetables and protein and cut back on carb portions and also avoid fruit juices and regular soda and desserts Increase physical activity , recommend at least 150 min of aerobic activity per week and include resistance training 2 x weekly Assessment & Plan (06/13/2018 7:17 PM LEGISLATIVE DIRECTOR): Obesity is unchanged Advised to increase physical activity as tolerated Advised to do some resistance training to improve muscle strength and gait balance. Assessment & Plan (02/15/2018 3:09 PM CDT): Obesity is unchanged. Discussed the patient's BMI. The BMI is above average; BMI management plan is completed. General weight loss/lifestyle modification strategies discussed (elicit support from others; identify saboteurs; non-food rewards, etc). Behavioral treatment: stress management. Diet interventions: moderate (500 kCal/d) deficit diet. Informal exercise measures discussed, e.g. taking stairs instead of elevator. Regular aerobic exercise program discussed. Assessment & Plan (08/17/2017 11:50 PM CDT): Obesity is unchanged. Discussed the patient's BMI. The BMI is above average; BMI management plan is completed. General weight loss/lifestyle modification strategies discussed (elicit support from others; identify saboteurs; non-food rewards, etc). Behavioral treatment: stress management. Diet interventions: moderate (500 kCal/d) deficit diet. Informal exercise measures discussed, e.g. taking stairs instead of elevator. Regular aerobic exercise program discussed. Assessment & Plan (12/22/2016 12:02 PM CDT): Obesity is unchanged. Discussed the patient's BMI. The BMI is above average; BMI management plan is completed. General weight loss/lifestyle modification strategies discussed (elicit support from others; identify saboteurs; non-food rewards, etc). Behavioral treatment: stress management. Diet interventions: moderate (500 kCal/d) deficit diet. Informal exercise measures discussed, e.g. taking stairs instead of elevator. Regular aerobic exercise program discussed.
--- OUTSIDE RECORDS SUMMARY | 2025-02-27 17:13 | XMS_ITS | Encounter Summary ---
Author Organization [facility] Address [address] [facility] [address] [place] [address] Phone Care Team Providers Care Physicians Assistant Name Role Phone Carrie Santana MD Primary Care Provider [phone] Reason for Visit * Reason Comments Med Refill Encounter Details Date Type Department Care Team (Late st Contact Info) Description 09/03/2021 Refill [place] [facility], [facility] [address] [facility] [address] [place] [address] Anuel Del Valle DO [address] [facility] [address] [place] [address] Social History Tobacco Use Types Packs/Day Years Used Date Smoking Tobacco: Former Smokeless Tobacco: Never Alcohol Use Standard Drinks/Week Comments No 0 (1 standard drink = 0.6 oz pur e alcohol) Comments Unknown Sex and Gender Information Value Date Recorded Sex Assigned at Not on file Legal Sex Female 2:52 PM EDT Gender Identity Not on file Sexual Orientation Not on file documented as of this encounter Plan of Treatment Upcoming Encounters Date Type Department Care Team (Late st Contact Info) Description 03/21/2025 12:00 PM ANIMAL CHIROPRACTOR Office Visit [place] [facility] [address] [facility] [address] [place] [address] Anuel Del Valle DO [address] [facility] [address] [place] [address] documented as of this encounter Visit Diagnoses Not on filedocumented in this encounter Care Teams Physicians Assistant Relationship Specialty Start Date End Date Carrie Santana MD [address] [facility], [address] [place] [id number] PCP - General Internal Medicine 10/11/24 documented as of this encounter
--- OUTSIDE RECORDS SUMMARY | 2025-02-27 17:13 | XMS_ITS | Encounter Summary ---
Author Organization [facility] [employer] , [facility] Address [address] [facility] [place] [address] Phone Care Team Providers Care Red Leader Name Role Phone Carrie Santnaa MD Primary Care Provider [phone] Reason for Visit * Reason Comments Med Refill Encounter Details Date Type Department Care Team (Late st Contact Info) Description 11/25/2023 Refill [place] [facility], [facility] [address] [facility] [address] [place] [address] Theodora Rocha MD [address] [facility] [address] [place] [address] Social History Tobacco Use Types [...] st Contact Info) Description 03/21/2025 12:00 PM MANAGEMENT ASSISTANT Office Visit [place] [facility] [address] [facility] [address] [place] [address] Anuel Del Valle DO [address] [facility] [address] [place] [address] documented as of this encounter Visit Diagnoses Not on filedocumented in this encounter Care Teams Red Leader Relationship Specialty Start Date End Date Carrie Santana MD [address] [facility], [address] [place] [id number] PCP - General Internal Medicine 10/11/24 documented as of this encounter
--- OUTSIDE RECORDS SUMMARY | 2025-02-27 17:13 | XMS_ITS | Clinical Summary ---
Author Organization [address] Address [address] [place] [address] Care Team Providers [facility] Director Name Role Phone Sarah Hardin MD Unavailable Humaira Amato MD Unavailable [phone] Berna Conte PhD Unavailable [phone] Qi Hope MD Unavailable [phone] Anuel Del Valle DO Unavailable [phone] Ag Santana MD Primary Care Provide r Jason Robles MD Unavailable [phone] Allergies Active Allergy Reactions Criticality Noted Date Comments Cefazolin Other (See comments),Unknown High 11/08/2014 System was shutting down. Blisters all over cefazolin cefazolin sodium Diazepam Unknown 10/13/2024 diazepam Empagliflozin Dizziness,Muscle pain,Other (See comments) High 08/30/2020 Bad leg cramps causing bruising Bad leg cramps causing bruising Jardiance Metformin Diarrhea Medium 03/21/2019 Penicillins Other (See comments) 10/13/2024 Product containing penicillin (product) Zzauczy-Jff-Mpt Reductase Inhibitors Other (See comments) 10/13/2024 Reaction: muscle weakness, Product containing 0-ayhgwjr-3-methylgl utaryl-coenzyme A reductase inhibitor (product) Medications NOVOFINE 32 32 gauge x 1/4 needle USE FOR INJECTION ONCE DAILY 100 each 2 8 Active [place]CH ULTRA2 [place] [facility] [place] Active Coumadin 4 mg tablet Take 1 tablet (4 mg total) by mouth daily 0 Active vit C/E/Zn/coppr/lut ein/zeaxan (PRESERVISION AREDS-2 ORAL) Take by mouth Ac tive pen needle, diabetic (NovoFine Plus) 32 gauge x 1/6 needleIndication s:Type 2 diabetes mellitus with hyperglycemia, with long-term current use of insulin ([facility]) Inject 4 each under the skin daily 300 each 3 0 Active OneTouch Verio test strips stripIndications :Type 2 diabetes mellitus with hyperglycemia, with long-term current use of insulin ([facility]) Check 4 x daily 300 each 11 1 Active OneTouch Delica Lancets 30 gauge miscIndications: Type 2 diabetes mellitus with hyperglycemia, with long-term current use of insulin ([facility]) Check blood sugar four times a day or as directed 300 each 11 1 Active FreeStyle Rocco 14 Day [place] [facility] [place]x: E11.65 insulin dependent 1 each 1 Active FreeStyle Rocco 14 Day Sensor kit Dx: E11.65 insulin dependent. Change sensor every 14 days 2 kit 6 1 Active losartan (COZAAR) 100 mg tablet Take 1 tablet (100 mg total) by mouth daily Active pen needle, diabetic 32 gauge x 1/4 needle Active lancets 30 gauge [facility] [place] OneTouch Delica Plus Lancet 30 gauge CHECK BLOOD SUGAR FOUR TIMES DAILY OR DIRECTED Active blood glucose diagnostic (OneTouch Ultra Test) strip OneTouch Ultra Test strips test blood sugars three times daily as needed Active blood glucose diagnostic (OneTouch Verio test strips) strip OneTouch Verio test strips USE TO CHECK FOUR TIMES DAILY DIRECTED Active sodium bicarbonate 650 mg tablet sodium bicarbonate 650 mg tablet TAKE 1 TABLET BY MOUTH TWICE DAILY Active escitalopram (LEXAPRO) 20 mg tablet Take 1 tablet (20 mg total) by mouth daily 2 Active amLODIPine (NORVASC) 10 mg tablet 2 Active carvediloL (COREG) 3.125 mg tabletIndication s:Sinus bradycardia Take 1 tablet (3.125 mg total) by mouth 2 (two) times a day with meals 180 tablet 3 3 Active carvediloL (COREG) 6.25 mg tablet 3 Active ergocalciferol (VITAMIN D) 50,000 unit capsule Active calcitRIOL (ROCALTROL) 0.25 mcg capsule 4 Active ezetimibe (ZETIA) 10 mg tabletIndication s:Hyperlipidemia associated with type 2 diabetes mellitus (HCC) 4 Active spironolactone (ALDACTONE) 25 mg tablet 4 Active torsemide (DEMADEX) 20 mg tablet 4 Active letrozole (FEMARA) 2.5 mg tablet TAKE 1 TABLET BY MOUTH DAILY 100 tablet 2 5 Active insulin glargine (LANTUS) 100 unit/mL (3 mL) pen for injectionIndicat ions:Type 2 diabetes mellitus with stage 4 chronic kidney disease, with long-term current use of insulin ([facility]) Inject 7 Units under the skin nightly 15 mL 1 5 10/12/19 26 Active Active Problems Problem Noted Date Diagnosed Date [...] 06/02/2022 Assessment & Plan (06/02/2022 10:39 AM BOWLING PIN REFINISHER): Sinus bradycardia noted today Pt asymptomatic Advised to decrease Carvedilol to 3.125 mg oral BID 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 Had FNA 05/2019: benign. US completed 05/2020 w/o changes; shows multinodular goiter. TFTs WNL 10/2023. Assessment & Plan (07/13/2023 1:35 PM BOWLING PIN REFINISHER): S/p right thyroid nodule FNA biopsy 06/07/2019 Benign cytology Repeat follow up thyroid ultrasound performed 05/2020 noted stable thyroid nodules No compression symptoms Continue clinical monitoring Assessment & Plan (01/06/2023 2:02 PM CDT): No compressive symptoms. Had FNA 05/2019: benign. US completed 05/2020 w/o changes; shows multinodular goiter. Assessment & Plan (06/02/2022 10:38 AM BOWLING PIN REFINISHER): S/p right thyroid nodule FNA biopsy 06/07/2019 [...] nodules Assessment & Plan (06/06/2020 8:35 AM BOWLING PIN REFINISHER): S/p right thyroid nodule FNA biopsy 06/07/2019 Benign cytology No compression symptoms Repeat follow up thyroid ultrasound performed today in office, noted stable thyroid nodules Assessment & Plan (04/13/2020 9:50 AM BOWLING PIN REFINISHER): S/p right thyroid nodule FNA biopsy 06/07/2019 Benign cytology No compression symptoms Repeat follow up thyroid ultrasound during next follow up visit Assessment & Plan (11/21/2019 4:11 PM CDT): S/p right thyroid nodule FNA biopsy 06/07/2019 Benign cytology No compression symptoms Recheck TSH Repeat follow up thyroid ultrasound during next follow up visit Assessment & Plan (03/25/2019 12:33 AM BOWLING PIN REFINISHER): Noted right thyroid nodule on PET scan 05/2018 Performed a thyroid ultrasound in office today - see full report Bilateral thyroid nodules Plan to perform FNA biopsy of bilateral thyroid nodules No compression symptoms Abscess of right breast 12/03/2018 Encounter for follow-up surveillance of breast c ancer 11/15/2018 Malignant neoplasm of right female breast 2018 Overview (09/06/2018): Added automatically from request for surgery [id number] 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 Zetia 10mg daily. Chronic problem. Last lipid panel: 08/26/21 PHE=972, HE=667. Labs completed 10/[address] Isidro Del Valle (see note) Assessment & Plan (07/13/2023 1:35 PM BOWLING PIN REFINISHER): LDL - high Pt intolerant to statin - on Zetia 10 mg oral daily Assessment & Plan (01/06/2023 1:36 PM CDT): Intolerance to statin therapy. Chronic problem. Last lipid panel: 08/26/21 BAR=501, SH=510. Assessment & Plan (06/02/2022 10:36 AM BOWLING PIN REFINISHER): LDL - high Pt intolerant to statin [...] daily Assessment & Plan (06/06/2020 8:35 AM BOWLING PIN REFINISHER): LDL - high Pt intolerant to statin - on Zetia 10 mg oral daily Assessment & Plan (04/13/2020 9:49 AM BOWLING PIN REFINISHER): LDL - high Pt intolerant to statin - on Zetia 10 mg oral daily Assessment & Plan (11/21/2019 4:12 PM CDT): LDL - high Pt intolerant to statin - on Zetia 10 mg oral daily Assessment & Plan (03/21/2019 10:21 PM BOWLING PIN REFINISHER): LDL - high Pt intolerant to statin - on Zetia 10 mg oral daily Assessment & Plan (09/14/2018 12:30 PM CDT): LDL - high Pt intolerant to statin - on Zetia 10 mg oral daily Assessment & Plan (06/13/2018 7:15 PM BOWLING PIN REFINISHER): LDL - high Pt intolerant to statin [...] eye exams. Had exam last year at [facility] 01/08/23 (no DMR). Labs completed 10/[address] Isidro Del Valle (see note) Strive for regular exercise (30min most days) and diet (get at least 4-5 servings of fruit and veggies daily, avoid processed foods, increase lean protein intake and decrease carb portions as well as fruit juices, regular soda & desserts). Watch carbs and simple sugars. Check the blood sugar Freestyle Rocco. Check the feet daily for skin breakdown and infection. 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 Losartan 100mg. Last MA: 12/29/22 (1140). Last creat/GFR: 12/29/22 GFR=30, CR=1.64. managed by Dr Isidro Del Valle (renal) Assessment & Plan (07/13/2023 1:36 PM BOWLING PIN REFINISHER): Chronic, slight worsening A1c 7.6% Reviewed CGM [...] eye exams. Had exam last year at [facility]. Will send letter to get copy of report. Had labs recently for Dr Isirdo Del Valle. Release signed to get copy of report. Strive for regular exercise (30min most days) and diet (get at least 4-5 servings of fruit and veggies daily, avoid processed foods, increase lean protein intake and decrease carb portions as well as fruit juices, regular soda & desserts). Watch carbs and simple sugars. Check the blood sugar Freestyle Rocco. Check the feet daily for skin breakdown and infection. Assessment & Plan (06/02/2022 10:44 AM BOWLING PIN REFINISHER): Chronic, overall fair controlled for pt age HbA1c - 7.1 % Reviewed freestyle rocco download 78 % in target range Mild [...] months Assessment & Plan (06/06/2020 8:35 AM BOWLING PIN REFINISHER): Chronic, uncontrolled, worsening HbA1c - 8.0 % [...] months Assessment & Plan (04/13/2020 9:49 AM BOWLING PIN REFINISHER): Chronic, uncontrolled, worsening HbA1c - 7.2 % [...] months. Assessment & Plan (03/21/2019 10:19 PM BOWLING PIN REFINISHER): Diabetes is improving with treatment. A1c - [...] months. Assessment & Plan (06/13/2018 7:15 PM BOWLING PIN REFINISHER): Diabetes is chronic, overall well controlled for [...] months. Assessment & Plan (05/25/2017 7:39 PM BOWLING PIN REFINISHER): Diabetes is improving, but occasionally complicated by [...] 12/22/2016 Assessment & Plan (07/13/2023 1:35 PM BOWLING PIN REFINISHER): Chronic, well controlled Continue amlodipine Assessment & Plan (01/06/2023 1:51 PM CDT): Chronic problem. Controlled on current Carvedilol 6.25mg bid, losartan 100mg daily, amlodipine 10mg daily Managed by Dr Isidro Del Valle (nephro). Has appt next Thursday. Sees him q4 mos. Assessment & Plan (06/02/2022 10:36 AM BOWLING PIN REFINISHER): Chronic, well controlled Assessment & Plan (08/26/2021 4:04 PM CDT): Chronic, improving control Pt following with Machine [employer]eder [employer] Assessment & Plan (12/03/2020 8:34 PM CDT): Chronic, improving control Pt following with Machine [employer] Assessment & Plan (08/13/2020 8:32 PM CDT): Chronic, uncontrolled, worsening Pt following with Machine [employer]eder [employer] Advised to start taking Losartan 50 mg as she was prescribed Advised home BP monitoring Assessment & Plan (06/06/2020 8:36 AM BOWLING PIN REFINISHER): Chronic, improving with treatment Continue current medications Assessment & Plan (04/13/2020 9:50 AM BOWLING PIN REFINISHER): Chronic, improving with treatment Continue current medications Assessment & Plan (11/21/2019 4:12 PM CDT): Chronic, improving with treatment Continue current medications Assessment & Plan (03/21/2019 10:24 PM BOWLING PIN REFINISHER): Chronic, improving with treatment Continue current medications Assessment & Plan (09/14/2018 12:30 PM CDT): Well controlled for pt age Assessment & Plan (06/13/2018 7:15 PM BOWLING PIN REFINISHER): Well controlled for pt age Assessment & [...] 8:34 PM CDT): Chronic, stable Follows with Machine Feeder [employer] Assessment & Plan (06/06/2020 8:36 AM BOWLING PIN REFINISHER): Chronic, stable Follows with Machine Feeder [employer] Assessment & Plan (04/13/2020 9:50 AM BOWLING PIN REFINISHER): Chronic, stable Follows with Machine Feeder [employer] Assessment & Plan (11/21/2019 4:10 PM CDT): Chronic, stable Assessment & Plan (03/21/2019 10:21 PM BOWLING PIN REFINISHER): Chronic, stable Assessment & Plan (09/14/2018 12:30 PM CDT): Follows with Dr. Leopoldo MCCAIN ( admissions clerk ) Assessment & Plan (06/13/2018 7:15 PM BOWLING PIN REFINISHER): Follows with Dr. Leopoldo MCCAIN ( admissions clerk ) Assessment & Plan (02/15/2018 3:10 PM CDT): Follows with Dr. Leopoldo MCCAIN ( admissions clerk ) Assessment & Plan (08/17/2017 11:50 PM CDT): Follows with Dr. Leopoldo MCCAIN ( admissions clerk ) Assessment & Plan (12/22/2016 1:55 PM CDT): Follows with Dr. Leopoldo MCCAIN ( admissions clerk ) Resolved Problems Problem Noted Date Diagnosed Date Resolved Date Morbid (severe) obesity due to excess calories 12/14/2023 12/14/2023 Multinodular goiter 06/07/2019 10/07/19 25 Morbid obesity with BMI of 40.0-44.9, adult 12/22/2016 12/14/2023 Assessment & Plan (06/02/2022 10:36 AM BOWLING PIN REFINISHER): Counseled on diet exercises is a limitation Assessment & Plan (08/26/2021 4:04 PM CDT): Counseled on diet exercises is a limitation Assessment & Plan (12/03/2020 8:37 PM CDT): Counseled on diet Exercise is a limitation Assessment & Plan (08/13/2020 8:32 PM CDT): Counseled on diet Exercise is a limitation Assessment & Plan (06/06/2020 8:35 AM BOWLING PIN REFINISHER): Counseled on diet and exercise Assessment & Plan (11/21/2019 4:12 PM CDT): Chronic, worsening Discussed about healthy lifestyle habits advise to work on healthy diet, avoid processed foods , increase vegetables and protein and cut back on carb portions and also avoid fruit juices and regular soda and desserts - exercise is a limitation Assessment & Plan (03/21/2019 10:21 PM BOWLING PIN REFINISHER): Chronic, worsening Discussed about healthy lifestyle habits [...] weekly Assessment & Plan (06/13/2018 7:17 PM BOWLING PIN REFINISHER): Obesity is unchanged Advised to increase physical [...] of elevator. Regular aerobic exercise program discussed. Immunizations Immunization Administration Dates Next Due Influenza, Quadrivalent, Hig h Dose, Preservative Free, Intrr 02/10/2023,03/05/2022,02/27/2021,02/28 Influenza, Quadrivalent, Spl it, Preservative Free, Intramuscular 02/12/2015 Influenza, Trivalent, Adjuva nted, Intramuscular 02/21/2020 Influenza, Trivalent, High D ose, Split, Preservative Free, Intramuscular 04/14/2024,02/27/2021,03/07/2019,03/03,02/17/2018,03/07/2016 Influenza, Trivalent, IM (MDV) 03/07/2014 Influenza, Trivalent, Preser vative Free, Intramuscular 03/31/2013 Moderna Sars-cov-2 Bivalent Vaccine 50 Mcg/0.5 mL (12+ YRS)-Blue/Armenta 03/12/2022 Pfizer SARS-CoV-2 Monovalent Vaccination (12+ Yrs) PURPLE 09/02/2020,08/11/2020,08/11/2020 Surgical History Surgery Date Site/Laterality Comments OTHER SURGICAL HISTORY cataracts: catract surgery OTHER SURGICAL HISTORY 11/15/1990 right kidney removed OTHER SURGICAL HISTORY 05/11/1998 - 05/10/1999 fibroid tumors removed left breast TOTAL ABDOMINAL HYSTERECTOMY 05/11/1975 - 05/10/1976 Hysterectomy, total BREAST BIOPSY 05/06/2018 Right NEPHRECTOMY EYE SURGERY CATARACT EXTRACTION PORTACATH PLACEMENT Left FLUID DRAIN SOFT TISSUE 12/03/2018 N/A ABSCESS CATHETER INJECTION 12/10/2018 N/A ABSCESS CATHETER INJECTION 12/23/2018 N/A Medical History Medical History Date Comments Type 2 diabetes mellitus Diabete s type 2; Comments: [facility] 06/19/2016 - Hypercholesterolemia High choles terol; Comments: [facility] 06/19/2016 - Anemia Anemia; Comments : [facility] 06/19/2016 - Hx Other Medical cataracts; Comm ents: [facility] 06/19/2016 - Hx Other Medical kidney; Comment s: [facility] 06/19/2016 - Hypertension Hypertension Atrial fibrillation (HCC) Breast cancer (HCC) right Breast cancer (HCC) last chemo 3 weeks ago. Pt is due for treatment next week Macular degeneration Family History Medical History Relation Name Comments Diabetes Brother Diabetes mellit us; Thyroid cancer Daughter Heart attack Father 40's passed maki y Heart disease Father Heart disease; Breast cancer Mother Cancer, breast ; Bladder Cancer Sister Anesthesia problems Neg Hx Glaucoma Neg Hx Macular degeneration Neg Hx Relation Name Status Comments Brother Daughter Father Mother Sister Social History Tobacco Use Types Packs/Day Years Used Date Smoking Tobacco: Former Cigarettes 0.3 10 0 05/19/1952 - 05/19/1962 Passive Smoke Exposure: Past Smokeless Tobacco: Never Tobacco Cessation:Counseling Given: Not Answered Comments:1 pack for a week Alcohol Use Standard Drinks/Week Comments No 0 (1 standard drink = 0.6 oz pur e alcohol) PHQ-2 Answer Date Recorded PHQ-2 Total Score (If total score is 3 or more points, staff should administer the PHQ-9) 1 08/26/2021 Comments No Sex and Gender Information Value Date Recorded Sex Assigned at Not on file Legal Sex Female 1:08 PM BOWLING PIN REFINISHER Gender Identity Not on file Sexual Orientation Not on file Occupation Industry Job Start Date Job End Date retired Not on file Not on file Not on file Obstetrics History Last Filed Vital Signs Vital Sign Reading Time Taken Comments Blood Pressure 172/70 10/13/2024 3:50 PM CDT Pulse 50 10/13/2024 3:22 PM CDT Temperature 36.6 C (97.8 F) 10/13/2024 3:22 PM CDT Respiratory Rate 16 10/13/2024 3:22 PM CDT Oxygen Saturation 98% 10/13/2024 3:22 PM CDT Inhaled Oxygen Concentration - - Weight 96.7 kg (213 lb 3.2 oz) 10/13/2024 3:22 P M CDT Height 157.5 cm (5' 2.01) 12/14/2023 1:03 PM CD T Body Mass Index 38.98 12/14/2023 1:03 PM CDT Plan of Treatment Health Maintenance Due Date Last Done Comments DTaP/Tdap/Td Vaccine (1 - Tdap) 10/05/1946 Hepatitis B Screening 1953 Pneumococcal vaccine 65+ (1 of 2 - PCV) 10/05/1955 Zoster Vaccine (1 of 2) 10/05/1955 Well Visit 65+ 2001 Depression Screening 08/26/2022 08/26/2021, 12/03/2020, 08/13/2020, Additional history exists Dilated Eye Exam 01/09/2024 01/08/2023, 07/2019, 06/12/2017 Fall Risk Assessment 07/12/2024 07/13/2023 Foot Exam 12/13/2024 12/14/2023, 03/0 08/2023, 06/02/2022, Additional history exists Covid-19 Vaccine (2024-2 6 season) 2025 03/12/2022, 03/18/2021, 09/02/2020, Additional history exists Influenza Vaccine (#1) 2025 , 02/10/2023, 03/05/2022, Additional history exists Hemoglobin A1C 01/22/2025 07/22/2024, 08/0 09/2023, 10/13/2023, Additional history exists Osteoporosis Screening-Bone Density Scan 03/12/2025 03/12/2023, 02/28/2021, 11/12/2018 Albumin Creatinine Ratio, Urine 07/22/2025 07/22/2024, 12/29/2022, 12/29/2022, Additional history exists Lipid Panel 07/22/2025 07/22/2024, 06/0 08/2023, 08/26/2021, Additional history exists eGFR 07/22/2025 07/22/2024, 02/10, 10/13/2023, Additional history exists Medical Devices Implanted Type Area Platform Man Device Identifier Shelf Expiration Date Model / Serial / Lot [employer] [id number] Powerport Clearvue Airguard 8fr 1 Lumen Lightweight Intermediate Latex Free - S0 - [id number] Implanted:Qty: 1 on 05/24/2018 by Humaira Amato MD at [facility] Catheter Left: Chest [employer] [id number] 06/10/2019 [id number] / 0 / [id number] Procedures Procedure Name Priority Date/Time Associated Diagnosis Comments COMPREHENSIVE METABOLIC PANEL Routine 07/22/2024 11:30 AM CDT HEMOGLOBIN A1C Routine 07/22/2024 11:30 AM CDT LIPID PANEL Routine 07/22/2024 11:30 AM CDT ALBUMIN CREATININE RATIO, URINE Routine 07/22/2024 11:30 AM CDT DEXA AXIAL SKELETON BONE DENSITY 1 OR MORE SITES Schedule Routine, Read Routine (OP Routine) 03/12/2023 1:05 PM CDT Malignant neoplasm of lower-outer quadrant of right breast of female, estrogen receptor positive (HCC) DIABETES EYE EXAM Routine 01/08/2023 7:22 AM CDT from Last 3 Months or Most Recently Relevant to Health Maintenance Results * Albumin Creatinine Ratio, Urine (07/22/2024 11:30 AM CDT) SCRIBED Microalbumin 2,610.0 NA - NA [facility] Urine 07/22/2024 11:3 0 AM CDT Historical Provider LAB URINE ORDERABLES Edit ed Result - Final [facility] * (ABNORMAL) Hemoglobin A1c (07/22/2024 11:30 AM CDT) SCRIBED Hemoglobin A1c 7.5(A) 4.8 - 5.6 % [facility] Blood 07/22/2024 11:3 0 AM CDT Historical Provider LAB BLOOD ORDERABLES Edit ed Result - Final [facility] * (ABNORMAL) Lipid panel (07/22/2024 11:30 AM CDT) Pathologist [facility] [place] SCRIBED Cholesterol, Total 222(A) 100 - 199 [facility] SCRIBED HDL 33 >39 - NA [facility] SCRIBED LDL 145(A) 0 - 99 [facility] SCRIBED Triglycerides 243(A) 0 - 149 [facility] Blood 07/22/2024 11:3 0 AM CDT us Historical Provider LAB BLOOD ORDERABLES Edit ed Result - Final [facility] * (ABNORMAL) Comprehensive metabolic panel (07/22/2024 11:30 AM CDT) Pathologist [facility] [place] SCRIBED Sodium 139 134 - 144 mmol/L [facility] SCRIBED Potassium 4.8 3.5 - 5.2 mmol/L [facility] SCRIBED Chloride 109(A) 96 - 106 mmol/L [facility] SCRIBED Carbon Dioxide 15(A) 20 - 29 mmol/L [facility] SCRIBED Urea Nitrogen (BUN) 49(A) 8 - 27 mg/dl [facility] SCRIBED Creatinine 2.21(A) 0.57 - 1.00 mg/dl [facility] SCRIBED Glucose 150(A) 70 - 99 mg/dl [facility] SCRIBED Calcium 8.4(A) 8.7 - 10.3 mg/dl [facility] SCRIBED Bilirubin <0.2 0.0 - 1.2 mg/dl [facility] SCRIBED Plasma Protein 5.8(A) 6.0 - 8.5 g/dl [facility] SCRIBED Albumin 3.4(A) 3.7 - 4.7 g/dl [facility] SCRIBED Alkaline Phosphatase 90 44 - 121 Units/L [facility] SCRIBED Alanine Transaminase (ALT) 15 0 - 32 Units/L [facility] SCRIBED Aspartate Transaminase (AST) 18 0 - 40 Units/L [facility] SCRIBED eGFR 21 >59 - NA [facility] Blood 07/22/2024 11:3 0 AM CDT us Historical Provider LAB BLOOD ORDERABLES Edit ed Result - Final [facility] * Dexa Axial Skeleton Bone Density 1 or 2 Site (03/12/2023 1:05 PM CDT) Anatomical Region Laterality Modality Body N/A Radiographic Vi ging Narrative 03/13/2023 12:30 PM CDT Patient Name: Rosemary Martinez Date of : 1935 Date of scan: 03/12/2023 Bone mineral density was performed on a [employer] Discovery Densitometer. Based on machine cross-calibration and precision studies the least significant changes of this densitometer is 0.024 g/cm2 at the spine, 0.020 g/cm2 at the total proximal femur, and 0.014g/cm2 at the forearm. HISTORY: This is a 87 y.o. postmenopausal female with a history of breast cancer and low bone mass. She reports that she quit smoking about 60 years ago. Her smoking use included cigarettes. She has a 2.50 pack-year smoking history. She has never used smokeless tobacco. Currently on treatment with vitamin D, aromatase inhibitor, and anticoagulants. INDICATIONS: Menopause status, aromatase inhibitor therapy, and history of low bone mass. FINDINGS: BONE MINERAL DENSITY OF THE LUMBAR SPINE Bone Mineral Density (BMD) of the lumbar spine was measured from L1-L4 and the average density was calculated to be 1.080 gm/cm2. This corresponds to a T-score (standard deviations from the mean of young adults) of 0.3. When compared to the previous study of 02/28/21 there has been no significant changes in bone density. BONE MINERAL DENSITY OF THE PROXIMAL FEMUR Bone Mineral Density (BMD) of the left hip total was found to be 0.833 gm/cm2. This corresponds to a T-score standard deviations from the mean of young adults of -0.9. Femoral neck is 0.700 gm/cm2 with a T-score (standard deviations from the mean of young adults) of -1.3. When compared to the previous study of 02/28/21 there has been a -0.021 gm/cm (-2.5%) decrease in bone density that is considered significant. SUMMARY: Bone mineral density shows evidence of low bone mass at the proximal femur and moderately increased fracture risk (Osteopenia). There has been a significant decrease in bone density since previous measurement. ADDITIONAL COMMENTS: Postmenopausal Women and Men Over 50: Diagnostic criteria: Osteoporosis: BMD at or below -2.5 T-score; Osteopenia (low bone mass): BMD between -1.0 and -2.5 T-score. If the patient has a history of a fragility fracture, a fracture that occurred with trauma equivalent to a fall from a standing position or less, then the diagnosis is osteoporosis regardless of bone density. The history and data sections of the bone mineral density scan were prepared by Barbie Torres who is accredited by the International Society of Clinical Densitometry. The overall patient assessment and scan interpretation were performed by Chevy Hamilton M.D. who is certified by the International Society of Clinical Densitometry. [id number] Wayne Reddy MD IM DXA PROCEDURES Final R esult * DIABETES EYE EXAM (01/08/2023 7:22 AM CDT) Historical Provider HEALTH MAINTENANCE Edited Result - Final from Last 3 Months or Most Recently Relevant to Health Maintenance Insurance [facility] MEDICARE ADVANTAGE MEDICARE ADVANTAGE MEDICARE ADVANTAGE Advance Directives For more information, please contact: [phone] * Full Code (Latest Code Status on File) Date Activated Date Inactivated Comments 12/23/2018 9:33 AM 12/23/2018 2:43 PM * Full Code Date Activated Date Inactivated Comments 12/16/2018 9:45 AM 12/16/2018 3:03 PM * Full Code Date Activated Date Inactivated Comments 12/10/2018 10:10 AM 12/10/2018 3:25 PM * Full Code Date Activated Date Inactivated Comments 12/10/2018 10:10 AM 12/10/2018 10:10 AM * Full Code Date Activated Date Inactivated Comments 12/02/2018 10:45 PM 12/03/2018 9:18 PM Care Teams Day Care Center Director Relationship Specialty Start Date End Date Ag Santana MD [address] [place] [address] PCP - General Internal Medicine 07/13/23 Sarah Hardin MD [address] [facility] [address] [place] [address] Radiation Oncologist Radiation Oncology 09/10/18 Humaira Amato MD [address] [place] [address] Surgeon Surgical Oncology 09/10/18 Berna Conte, PhD [address] [place] [address] Nurse Practitioner Radiation Oncology 11/15/18 Qi Hope MD [address] [place] [address] Medical Oncologist/Meat Grading Machine Operator Medical Oncology 11/15/18 Anuel Del Valle DO [address] [place] [address] Consulting Physician Nephrology 06/02/22 [place] [address] [facility] [address] [place] [address] Consulting Physician Endocrinology 08/05/23
--- OUTSIDE RECORDS SUMMARY | 2025-02-27 17:13 | XMS_ITS | Encounter Summary ---
Author Organization [email or web address] Address [address] [facility] [place] [address] Phone Care Team Providers Care Assemblies And Installations Inspector Name Role Phone Carrie Santana MD Primary Care Provider [phone] Reason for Visit * Reason Comments Med Refill Encounter Details Date Type Department Care Team (Late st Contact Info) Description 05/19/2023 Refill [facility] [address] [place] [address] Anuel Del Valle DO [address] [place] [address] Social History Tobacco Use Types [...] on file documented as of this encounter Miscellaneous Notes * Telephone Encounter - Ana Juárez CMA - 05/19/2023 2:18 PM CST Please fill medication documented in this encounter Plan of Treatment Upcoming Encounters Date Type Department Care Team (Late st Contact Info) Description 03/21/2025 12:[address] COMMISSIONER Office Visit [facility] [address] [place] [address] Anuel Del Valle DO [address] [place] [address] documented as of this encounter Visit Diagnoses Not on filedocumented in this encounter Care Teams Assemblies And Installations Inspector Relationship Specialty Start Date End Date Carrie Santana MD [address] [facility] [place] [address] PCP - General Internal Medicine 10/11/24 documented as of this encounter
--- OUTSIDE RECORDS SUMMARY | 2025-02-27 17:13 | XMS_ITS | Clinical Summary ---
Author Organization [facility] (Formerly [facility]) Melissa robert [facility] Address [address] [place] [address] Care Team Providers Care Automatic Glove Former Name Role Phone Carrie Santana MD Primary Care Provider Allergies Active Allergy Reactions Criticality Noted Date Comments Cefazolin Other (See Comments),Unknown High 11/08/2014 System was shutting down. Blisters all over Empagliflozin Dizziness,Muscle Pain,Other (See Comments) High 08/30/2020 Bad leg cramps causing bruising Bad leg cramps causing bruising Bad leg cramps causing bruising Metformin Diarrhea Medium 03/21/2019 Jplonfx-Mub-Som Reductase Inhibitors Unknown 11/08/2014 Medications amLODIPine (NORVASC) 10 mg tablet Take 10 mg by mouth daily. 2 Active calcitRIOL (ROCALTROL) 0.5 mcg capsule Take 0.5 mcg by mouth daily. 4 Active carvediloL (COREG) 6.25 mg tablet Take 6.25 mg by mouth daily. 3 Active escitalopram oxalate (LEXAPRO) 20 mg tablet Take 20 mg by mouth daily. 2 Active insulin glargine (Lantus Solostar U-100 Insulin) 100 unit/mL pen syringe Inject 10 Units by subcutaneous injection daily. 4 Active letrozole (FEMARA) 2.5 mg tablet Take 2.5 mg by mouth daily. 4 Active losartan (COZAAR) 100 mg tablet Take 100 mg by mouth daily. 4 Active ergocalciferol (VITAMIN D2) 50,000 unit capsule Take 50,000 Units by mouth. 3 Active ezetimibe (ZETIA) 10 mg tablet Take 10 mg by mouth daily. Active spironolactone (ALDACTONE) 25 mg tablet Take 25 mg by mouth daily. Active torsemide (DEMADEX) 20 mg tablet Take 30 mg by mouth daily. Active warfarin (COUMADIN) 4 mg tablet Take 4 mg by mouth daily. Active Active Problems No known active problems Family History Medical History Relation Name Comments Diabetes Brother Multiple myeloma Child 1 Cancer - Other Child 2 bladder Diabetes Child 2 Diabetes Child 3 No Known Problems Child 4 Thyroid Cancer Child 5 Diabetes Child 6 No Known Problems Child 7 Heart Disease Father Breast Cancer Mother Diabetes Mother Relation Name Status Comments Brother Child 1 Alive Child 2 Alive Child 3 Alive Child 4 Alive Child 5 Alive Child 6 Alive Child 7 Alive Father Mother Sister Social History Tobacco Use Types Packs/Day Years Used Date Smoking Tobacco: Former Cigarettes 0.5 7 0 12/02/1956 - 12/03/1963 Smokeless Tobacco: Never Tobacco Cessation:Counseling Given: Not Answered Alcohol Use Standard Drinks/Week Comments Not Currently 0 (1 standard drink = 0.6 oz pur e alcohol) Socially Comments Unknown Sex and Gender Information Value Date Recorded Sex Assigned at Not on file Legal Sex Female 8:12 AM CDT Gender Identity Not on file Sexual Orientation Not on file Last Filed Vital Signs Vital Sign Reading Time Taken Comments Blood Pressure 151/73 12/03/2023 2:00 PM CDT Pulse - - Temperature 36.1 C (96.9 F) 12/03/2023 1:52 PM CDT Respiratory Rate 15 12/03/2023 1:52 PM CDT Oxygen Saturation 98% 12/03/2023 1:52 PM CDT Inhaled Oxygen Concentration - - Weight 102.1 kg (225 lb) 12/03/2023 1:52 PM CDT Height 157.5 cm (5' 2) 12/03/2023 1:52 PM CDT Body Mass Index 41.15 12/03/2023 1:52 PM CDT Plan of Treatment Health Maintenance Due Date Last Done Comments DIABETES ANNUAL RETINAL EXAM 1953 DIABETES MICROALBUMIN ANNUAL SCREEN 1954 LDL CHOLESTEROL ANNUAL 1953 DTAP/TDAP/TD VACCINES (1 - Tdap) 10/05/1954 PNEUMOCOCCAL VACCINE 50+ YEA RS (1 of 2 - PCV) 10/05/1954 ZOSTER VACCINE (1 of 2) 1986 RSV VACCINE (60+ or ) (1 - 1-dose 75+ series) 10/05/2011 DIABETES HBA1C Q 6 MONTHS 06/15/20242023, 10/13/2023, 07/13/2023 INFLUENZA VACCINE (#1) 2024 3, 03/05/2022, 02/27/2021, Additional history exists DIABETES ANNUAL FOOT EXAM 12/13/2024 12/14/2023 COVID-19 Vaccine ( - 2024-2 6 season) 2025 03/12/2022, 03/18/2021, 09/02/2020, Additional history exists OSTEOPOROSIS SCREENING 03/12/2028 3, 02/28/2021, 11/12/2018 Insurance Care Teams Automatic Glove Former Relationship Specialty Start Date End Date Carrie Santana MD PCP - General Internal Medicine 12/08/23
--- OUTSIDE RECORDS SUMMARY | 2025-02-27 17:13 | XMS_ITS | Clinical Summary ---
Author Organization [facility] Address [address] [place] [address] Care Team Providers Care Processing Technologist Name Role Phone Carrie Santana MD Primary Care Provider [phone] [phone] Allergies Active Allergy Reactions Criticality Noted Date Comments Cefazolin Other (see comments) High 11/08/2014 System was shutting down. Blisters all over Empagliflozin Other (see comments) High 08/30/2020 Bad leg cramps causing bruising Metformin Diarrhea Medium 03/21/2019 Statins 11/08/2014 Medications warfarin (COUMADIN) 4 MG tablet warfarin 4 mg tablet TAKE 1 TABLET BY MOUTH DAILY 0 Active letrozole (FEMARA) 2.5 MG chemo tablet letrozole 2.5 mg tablet Active sodium bicarbonate 650 MG tablet Take 1 tablet (650 mg total) by mouth in the morning and 1 tablet (650 mg total) in the evening. 180 tablet 1 3 Active carvedilol (COREG) 6.25 MG tablet TAKE 1 TABLET BY MOUTH IN THE MORNING AND IN THE EVENING 200 tablet 2 5 Active losartan (COZAAR) 100 MG tablet TAKE 1 TABLET BY MOUTH AT NIGHT 100 tablet 2 5 Active torsemide (DEMADEX) 20 MG tablet Take 1 tablet (20 mg total) by mouth 1 (one) time each day in the morning 90 tablet 1 5 Active calcitriol (ROCALTROL) 0.25 MCG capsule TAKE 1 CAPSULE BY MOUTH 3 TIMES WEEKLY THURSDAY, THURSDAY, AND THURSDAY IN THE EVENING 43 capsule 2 5 Active amLODIPine (NORVASC) 10 MG tablet TAKE 1 TABLET BY MOUTH EVERY NIGHT 100 tablet 2 5 Active colchicine 0.6 MG tablet Take 1 tablet (0.6 mg total) by mouth per week 12 tablet 1 5 Active insulin glargine (Lantus SoloStar) 100 UNIT/ML injection Inject 7 Units under the skin 1 (one) time each day 6 mL 1 5 Active Encounters Date Type Department Care Team Description 01/17/2025 4:30 PM CDT Office Visit [facility], [facility] [address] [place] [address] Anuel Del Valle, DO Chronic kidney disease, stage 4 (severe) (HCC) (Primary Dx); Longstanding persistent atrial fibrillation (HCC); Diastolic dysfunction; Idiopathic gout, unspecified shoulder; Macular degeneration, not otherwise specified; Personal history of breast cancer; Hypertensive chronic kidney disease; Type 2 diabetes mellitus with diabetic chronic kidney disease (HCC); Pure hypercholesterolemia , not otherwise specified 01/17/2025 Refill [facility], [facility] [address] [address] Ana Juárez CMA 01/11/2025 Orders Only [facility], [address] [phone] Anuel Del Valle, DO 12/29/2024 Documentation Only [facility], [address] [phone] Anuel Del Valle, DO 12/25/2024 Refill [facility], [address] [phone] Anuel Del Valle, DO 12/07/2024 Refill [facility], [facility] [address] [address] Anuel Del Valle, 11/29/2024 4:15 PM CDT Office Visit [facility], [facility] [address] [address] Anuel Del Valle DO Chronic kidney disease, stage 4 (severe) (HCC) (Primary Dx); Longstanding persistent atrial fibrillation (HCC); Diastolic dysfunction; Idiopathic gout, unspecified shoulder; Macular degeneration, not otherwise specified; Personal history of breast cancer; Hypertensive chronic kidney disease; Type 2 diabetes mellitus with diabetic chronic kidney disease (HCC); Pure hypercholesterolemia , not otherwise specified from Last 3 Months Family History Medical History Relation Comments Heart disease Father Stroke Father Cancer Mother Diabetes Mother Hypertension Mother Relation Status Comments Father Mother Social History Tobacco Use Types Packs/Day Years [...] Sign Reading Time Taken Comments Blood Pressure 140/60 01/17/2025 5:09 PM CDT Pulse 61 01/17/2025 5:09 PM CDT Temperature 36.1 C (97 F) 01/17/2025 5:09 PM CDT Respiratory Rate 18 01/17/2025 5:09 PM CDT Oxygen Saturation 98% 01/17/2025 5:09 PM CDT Inhaled Oxygen Concentration - - Weight 92.5 kg (204 lb) 01/17/2025 5:09 PM CDT Height 157.5 cm (5' 2) 11/29/2024 3:46 PM CDT Body Mass Index 37.31 11/29/2024 3:46 PM CDT Plan of Treatment Upcoming Encounters Date Type Department Care Team (Late st Contact Info) Description 03/21/2025 12:00 PM ASSEMBLER PIANO Office Visit [facility], [facility] [address] [facility] [address] [place] [address] Anuel Del Valle DO [address] [facility] [address] [place] [address] Health Maintenance Due Date Last Done Comments Pneumococcal Vaccine: 50+ Years (1 of 2 - PCV) 10/05/1954 Diabetes: Ophthalmology Exam 2020 Diabetes: Pedal Pulse Checked 2020 Diabetes: Sensory Foot Exam 2020 Diabetes: Visual Foot Exam 2020 Influenza Vaccine (#1) 2025 4, 02/27/2021, 02/21/2020, Additional history exists Diabetes: Hemoglobin A1C 04/12/2025 025, 07/22/2024, 07/22/2024, Additional history exists Hepatitis B Vaccine Aged Out No longe r eligible based on patient's age to complete this topic Procedures Procedure Name Priority Date/Time Associated Diagnosis Comments PTH, INTACT Routine 01/11/2025 11:10 AM CDT MAGNESIUM Routine 01/11/2025 11:10 AM CDT VITAMIN D 25 HYDROXY Routine 01/11/2025 11:10 AM CDT HEMOGLOBIN A1C Routine 01/11/2025 11:10 AM CDT CYSTATIN C WITH EGFR Routine 01/11/2025 11:10 AM CDT URINE ALBUMIN / CREATININE RATIO Routine 01/11/2025 11:10 AM CDT PROTEIN / CREATININE RATIO, URINE Routine 01/11/2025 11:10 AM CDT RENAL FUNCTION PANEL Routine 01/11/2025 11:10 AM CDT URINALYSIS WITH MICROSCOPIC Routine 01/11/2025 11:10 AM CDT CBC AND DIFFERENTIAL Routine 01/11/2025 11:10 AM CDT MICROSCOPIC EXAMINATION - DO NOT USE Routine 01/11/2025 11:10 AM CDT from Last 3 Months Results * (ABNORMAL) Cystatin C w/GFR (01/11/2025 11:10 AM CDT) Cystatin C 2.79(H) 0.87 - 1.12 mg/L [facility] eGFR by Cystatin C 17(L) >59 mL/min/1.7 3 [facility] 01/11/2025 11:1 0 AM CDT 01/10/2025 11:00 PM CDT Anuel Del Valle DO LAB BLOOD ORDERABLES Final R esult Performing Organization Address City/[facility]/ZIP Co de Phone Number [facility] [address] [place] [address] * (ABNORMAL) Microscopic Examination (01/11/2025 11:10 AM CDT) WBC, Urine >30(A) 0 - 5 /hpf [facility] Comment:Clumps of leukocytes present. RBC, Urine None seen 0 - 2 /hpf [facility] Squamous Epithelial, Urine None seen 0 - 10 /hpf [facility] Casts None seen None seen /lpf [facility] Bacteria, Urine None seen None seen/Few [facility] 01/11/2025 11:1 0 AM CDT 01/10/2025 11:00 PM CDT Anuel Del Valle DO LAB MICROBIOLOGY - GENERAL O RDERABLES Final Result Performing Organization Address City/[facility] Co de Phone Number [facility] [address] [place] [address] * (ABNORMAL) Protein, Total, Random Urine w/Creatinine (Protein/Creat Ratio) (01/11/2025 11:10 AM CDT) Creatinine, Ur 50.0 Not Estab. mg/dL [facility] Protein, Ur 98.5 Not Estab. mg/dL [facility] Urine Protein/Creati nine Ratio 1,970(H) 0 - 200 mg/g [facility] 01/11/2025 11:1 0 AM CDT 01/10/2025 11:00 PM CDT Anuel Del Valle DO LAB URINE ORDERABLES Final R esult Performing Organization Address City/[facility] Co de Phone Number [facility] [address] [place] [address] * (ABNORMAL) Urine Albumin / Creatinine Ratio (01/11/2025 11:10 AM CDT) Albumin, Urine 514.9 Not Estab. ug/mL [facility] Comment: Results confirmed on dilution. Albumin/Creatin ine Ratio 1,030(H) 0 - 29 mg/g creat [facility] Comment: Normal: 0 - 29 Moderately increased: 30 - 300 Severely increased: >300 01/11/2025 11:1 0 AM CDT 01/10/2025 11:00 PM CDT Anuel Del Valle DO LAB URINE ORDERABLES Final R [facility] Performing Organization Address City/[facility] Co de Phone Number [facility] [address] [place] [address] * Vitamin D 25 Hydroxy (01/11/2025 11:10 AM CDT) Vitamin D, 25-OH, Total 38.3 30.0 - 100.0 ng/mL [facility] Comment: Vitamin D deficiency has been defined by the [employer] of Medicine and an Endocrine Society practice guideline as a level of serum 25-OH vitamin D less than 20 ng/mL (1,2). The Endocrine Society went on to further define vitamin D insufficiency as a level between 21 and 29 ng/mL (2). 1. IOM ([place] of Medicine). 2010. Dietary reference intakes for calcium and D. [place]: The National Academies Press. 2. Timo MF, Shonna MAN, García URIARTE, et al. Evaluation, treatment, and prevention of vitamin D deficiency: an Endocrine Society clinical practice guideline. JCEM. 2010; 96(7):1911-30. 01/11/2025 11:1 0 AM CDT 01/10/2025 11:00 PM CDT us Anuel Del Valle DO LAB BLOOD ORDERABLES Final R esult [facility] [address] [place] [address] * (ABNORMAL) Urinalysis with microscopic (01/11/2025 11:10 AM CDT) Specific [place], Urine 1.012 1.005 - 1.030 [facility] pH Urine 5.5 5.0 - 7.5 [facility] Color, Urine Yellow Yellow [facility] Appearance Urine Cloudy(A) Clear [facility] WBC Esterase Urine 2+(A) Negative [facility] Protein, Ur 2+(A) Negative/Tra ce [facility] Glucose, Ur Negative Negative [facility] Ketones, Urine Negative Negative [facility] Blood Urine Trace(A) Negative [facility] Bilirubin Urine Negative Negative [facility] Urobilinogen Urine 0.2 0.2 - 1.0 mg/dL [facility] Nitrite, Urine Negative Negative [facility] Microscopic Examination See below: [facility] Comment:Microscopic was oskar cated and was performed. 01/11/2025 11:1 0 AM CDT 01/10/2025 11:00 PM CDT us Anuel Del Valle DO LAB URINE ORDERABLES Final R esult [facility] [address] [place] [address] * (ABNORMAL) CBC and Differential (01/11/2025 11:10 AM CDT) WBC 7.2 3.4 - 10.8 x10E3/uL [facility] RBC 4.00 3.77 - 5.28 x10E6/uL [facility] Hemoglobin 10.1(L) 11.1 - 15.9 g/dL [facility] Hematocrit 33.7(L) 34.0 - 46.6 % [facility] MCV 84 79 - 97 fL [facility] MCH 25.3(L) 26.6 - 33.0 pg [facility] MCHC 30.0(L) 31.5 - 35.7 g/dL [facility] RDW 15.2 11.7 - 15.4 % [facility] Platelets 276 150 - 450 x10E3/uL [facility] Neutrophils Relative 63 Not Estab. % [facility] Lymphocytes Relative 24 Not Estab. % [facility] Monocytes 8 Not Estab. % [facility] Eosinophils Relative 4 Not Estab. % [facility] Basophils Relative 1 Not Estab. % [facility] Neutrophils Absolute 4.6 1.4 - 7.0 x10E3/uL [facility] Lymphocytes Absolute 1.7 0.7 - 3.1 x10E3/uL [facility] Monocytes Absolute 0.6 0.1 - 0.9 x10E3/uL [facility] Eosinophils Absolute 0.3 0.0 - 0.4 x10E3/uL [facility] Basophils Absolute 0.0 0.0 - 0.2 x10E3/uL [facility] Immature Granulocytes 0 Not Estab. % [facility] Immature Grans (Absolute) 0.0 0.0 - 0.1 x10E3/uL [facility] 01/11/2025 11:1 0 AM CDT 01/10/2025 11:00 PM CDT Narrative [facility] - 01/12/2025 12:10 PM CDT Specimen Comment: A courtesy copy of this report has been sent to [phone] Anuel Del Valle DO LAB BLOOD ORDERABLES Final R esult [facility] [address] [place] [address] * (ABNORMAL) PTH, Intact (01/11/2025 11:10 AM CDT) PTH 73(H) 15 - 65 pg/mL [facility] 01/11/2025 11:1 0 AM CDT 01/10/2025 11:00 PM CDT Anuel Del Valle DO LAB BLOOD ORDERABLES Final R esult [facility] [address] [place] [address] * Magnesium (01/11/2025 11:10 AM CDT) Magnesium 2.2 1.6 - 2.3 mg/dL [facility] 01/11/2025 11:1 0 AM CDT 01/10/2025 11:00 PM CDT Anuel Del Valle DO LAB BLOOD ORDERABLES Final R esult Performing Organization Address City/[facility] Co de Phone Number [facility] [address] [place] [address] * (ABNORMAL) Hemoglobin A1c (01/11/2025 11:10 AM CDT) Pathologist [facility] Hemoglobin A1C 8.4(H) 4.8 - 5.6 % [facility] Comment: Prediabetes: 5.7 - 6.4 Diabetes: >6.4 Glycemic control for adults with diabetes: <7.0 01/11/2025 11:1 0 AM CDT 01/10/2025 11:00 PM CDT Anuel Del Valle DO LAB BLOOD ORDERABLES Final [facility] Performing Organization Address City/[facility] de Phone Number [facility] [address] [place] [address] * (ABNORMAL) Renal Function Panel (01/11/2025 11:10 AM CDT) Glucose 156(H) 70 - 99 mg/dL [facility] BUN 76(HH) 8 - 27 mg/dL [facility] Creatinine 2.45(H) 0.57 - 1.00 mg/dL [facility] eGFR CKD-EPI CR 2020 18(L) >59 mL/min/1.7 3 [facility] BUN/Creatinine Ratio 31(H) 12 - 28 [facility] Sodium 140 134 - 144 mmol/L [facility] Potassium 5.4(H) 3.5 - 5.2 mmol/L [facility] Chloride 104 96 - 106 mmol/L [facility] Bicarbonate (CO2) 19(L) 20 - 29 mmol/L [facility] Calcium 9.1 8.7 - 10.3 mg/dL [facility] Phosphorus 4.6(H) 3.0 - 4.3 mg/dL [facility] Albumin 3.8 3.7 - 4.7 g/dL [facility] 01/11/2025 11:1 0 AM CDT 01/10/2025 11:00 PM CDT us Anuel Del Valle DO LAB BLOOD ORDERABLES Final R esult [facility] [address] [place] [address] from Last 3 Months Insurance Care Teams Processing Technologist Relationship Specialty Start Date End Date Carrie Santana MD [address] [facility], [address] [place] [address] PCP - General Internal Medicine 10/11/24
--- OUTSIDE RECORDS SUMMARY | 2025-02-27 17:13 | XMS_ITS | Patient Health Record ---
Author Organization [facility] [employer] Address [address] [place] [address] Care Team Providers Care Customer Management Specialist Name Role Phone Gila Vela Unavailable [phone] Reason For Referral No Information Medications Medication SIG (Take, Route, Frequency, Duration) Notes Start Date End Date Status Letrozole 2.5 MG Tablet Oral Active Furosemide 20 MG Tablet Oral Active Calcitriol 0.25 MCG Capsule Oral Active traMADol HCl 50 MG Tablet Oral Active Warfarin Sodium 4 MG Tablet Oral Active methylPREDNISolone 4 MG Tablet Therapy Pack Oral Active ProAir HFA 108 (90 Base) MCG/ACT Aerosol Solution Inhalation Act marian Lantus SoloStar 100 UNIT/ML Solution Pen-injector Subcutaneous Active Cholecalciferol 1.25 MG (72477 UT) Capsule Oral Active Azithromycin 250 MG Tablet Oral Active Carvedilol 6.25 MG Tablet Oral Active amLODIPine Besylate 10 MG Tablet Oral Active Escitalopram Oxalate 20 MG Tablet Oral Active Amoxicillin 500 MG Capsule Oral Active Losartan Potassium 100 MG Tablet Oral Active Social History Social History Additional Details Category Social Info Options Details Migrated Social History Migrated Social History Tobacco Years: Never smoker 04/21/2023 Plan Of Treatment No Information Insurance Providers Payer Name Payer Address Payer Phone Subscriber Number Group Number Insured Name Patient Relationship to Insured Coverage Start Date Coverage End Date [employer] Medicare Replacement/ Advantage - Ppo [address] [address] [place] [address] [id number] MIMI SINGH Self - patient is the insured
[2025-02-27] MEDS: ACETAMINOPHEN 500 MG TABLET 1000 MG PO (17:42)
[2025-02-27] MEDS: traMADol HCL (*CRX) 25 MG TABLET PO (17:43)
--- NOTE | 2025-02-27 17:44 | PC.NURSE ---
Unable to collect urine at this time due to pt contamination of sample
[2025-02-27 17:51] LABS: Hematocrit 31.0 % (37.0-47.0); Hemoglobin 9.4 g/dL (12.0-15.0); Immature Granulocyte Percent A 0.3 % (0-0.5); Lymphocytes Absolute Auto 2.23 K/mm3 (0.9-3.2); Mean Corpuscular HGB Conc 30.3 g/dl (32-36); Mean Corpuscular Hemoglobin 25.5 pg (26-34); Mean Corpuscular Volume 84.0 fl (80-100); Nucleated Red Blood Cells Absolute Auto 0.000 K/mm3 (0.0-0.012); Nucleated Red Blood Cells Perc 0.0 % (0.0-0.2); Platelet Count Result 276 k/mm3 (150-375); Red Blood Count 3.69 M/mm3 (4.2-5.4); White Blood Count 6.8 K/mm3 (4.5-10.0)
[2025-02-27 18:02] LABS: Alanine Aminotransferase 14 U/L (6-35); Albumin Level 3.7 g/dL (3.5-5.1); Alkaline Phosphatase 98 U/L (38-126); Anion Gap 10 mmol/L (4-12); Aspartate Amino Transferase 22 U/L (14-36); Bilirubin,Total 0.5 mg/dL (0.2-1.3); Blood Urea Nitrogen 49 mg/dL (7-17); Calcium 8.7 mg/dL (8.4-10.2); Carbon Dioxide 19 mmol/L (22-30); Chloride 108 mmol/L (98-107); Estimated CRCL calculation 19 ml/min; Estimated Glomerular Filt Rate 24; Glucose 132 mg/dL (65-110); Potassium 4.6 mmol/L (3.4-5.0); Sodium 137 mmol/L (137-145); Total Protein 7.2 g/dL (6.3-8.2)
[2025-02-27 18:06] LABS: INR 2.5; Prothrombin Time 26.1 Seconds (11.1-14.7)
[2025-02-27 18:07] LABS: Partial Thromboplastin Time 40.5 Seconds (22.3-36.8)
[2025-02-27 19:12] VITALS: BP 217/67; PULSE 50; RESP 19; TEMP 35.5; O2SAT 98
--- OUTSIDE RECORDS SUMMARY | 2025-02-27 19:49 | XMS_ITS | Encounter Summary ---
Author Organization [facility] , [facility] Address [address] [facility] [place] [address] Phone Care Team Providers Care Lye Peel Operator Name Role Phone Carrie Santana MD Primary Care Provider [phone] Reason for Visit * Reason Comments Med Refill Encounter Details Date Type Department Care Team (Late st Contact Info) Description 11/25/2023 Refill [facility], [facility] [address] [facility] [address] [place] [address] Theodora Rocha MD [address] [facility] [address] [place] [address] Social History Tobacco Use Types [...] st Contact Info) Description 03/21/2025 12:00 PM UPSETTING MACHINE OPERATOR Office Visit [facility], [facility] [address] [facility] [address] [place] [address] Anuel Del Valle DO [address] [facility] [address] [place] [address] documented as of this encounter Visit Diagnoses Not on filedocumented in this encounter Care Teams Lye Peel Operator Relationship Specialty Start Date End Date Carrie Santana MD [address] [facility], [address] [place] [id number] PCP - General Internal Medicine 10/11/24 documented as of this encounter
--- OUTSIDE RECORDS SUMMARY | 2025-02-27 19:49 | XMS_ITS | Encounter Summary ---
Author Organization [facility] [facility] Address [address] [facility] [place] [address] Phone Care Team Providers Care Pharmacy Technician Trainee Name Role Phone Carrie Santana MD Primary Care Provider [phone] Reason for Visit * Reason Comments Med Refill Encounter Details Date Type Department Care Team (Late st Contact Info) Description 05/19/2023 Refill [facility] [address] [place] [address] Anuel Del Valle DO [address] [place] [address] Social History Tobacco Use Types [...] st Contact Info) Description 03/21/2025 12:00 PM PER DIEM NURSE Office Visit [employer] [address] [employer] [address] [place] [address] Anuel Del Valle DO [address] [place] [address] documented as of this encounter Visit Diagnoses Not on filedocumented in this encounter Care Teams Pharmacy Technician Trainee Relationship Specialty Start Date End Date Carrie Santana MD [address] [facility], [address] [place] [address] PCP - General Internal Medicine 10/11/24 documented as of this encounter
--- OUTSIDE RECORDS SUMMARY | 2025-02-27 19:50 | XMS_ITS | Clinical Summary ---
Author Organization [address] Address [address] [place] [address] Care Team Providers Care Collateral Analyst Name Role Phone Sarah Hardin MD Unavailable Humaira Amato MD Unavailable [phone] Berna Conte PhD Unavailable [phone] Qi Hope MD Unavailable [phone] Anuel Del Valle DO Unavailable [phone] Ag Santana MD Primary Care Provide r Jason Robles MD Unavailable [phone] Allergies Active Allergy Reactions Criticality Noted Date Comments Cefazolin Other (See comments),Unknown High 11/08/2014 System was shutting down. Blisters all over cefazolin cefazolin sodium Diazepam Unknown 10/13/2024 diazepam Empagliflozin Dizziness,Muscle pain,Other (See comments) High 08/30/2020 Bad leg cramps causing bruising Bad leg cramps causing bruising Jardiance Metformin Diarrhea Medium 03/21/2019 Penicillins Other (See comments) 10/13/2024 Product containing penicillin (product) Pjkyjao-Mny-Btt Reductase Inhibitors Other (See comments) 10/13/2024 Reaction: muscle weakness, Product containing 5-gtqcjuh-7-methylgl utaryl-coenzyme A reductase inhibitor (product) Medications NOVOFINE 32 32 gauge x 1/4 needle USE FOR INJECTION ONCE DAILY 100 each 2 8 Active ONETOUCH ULTRA2 METER [facility] Active Coumadin 4 mg tablet Take 1 tablet (4 mg total) by mouth daily 0 Active vit C/E/Zn/coppr/lut ein/zeaxan (PRESERVISION AREDS-2 ORAL) Take by mouth Ac tive pen needle, diabetic (NovoFine Plus) 32 gauge x 1/6 needleIndication s:Type 2 diabetes mellitus with hyperglycemia, with long-term current use of insulin ([facility]) Inject 4 each under the skin daily 300 each 3 0 Active OneTouch Verio test strips stripIndications :Type 2 diabetes mellitus with hyperglycemia, with long-term current use of insulin ([facility]) Check 4 x daily 300 each 11 1 Active OneTouch Delica Lancets 30 gauge miscIndications: Type 2 diabetes mellitus with hyperglycemia, with long-term current use of insulin ([facility]) Check blood sugar four times a day or as directed 300 each 11 1 Active FreeStyle Rocco 14 Day [place] [facility] Dx: E11.65 insulin dependent 1 each 1 Active FreeStyle Rocco 14 Day Sensor kit Dx: E11.65 insulin dependent. 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 Had FNA 05/2019: benign. US completed 05/2020 w/o changes; shows multinodular goiter. TFTs WNL 10/2023. Assessment & Plan (07/13/2023 1:35 PM ADVERTISER): S/p right thyroid nodule FNA biopsy 06/07/2019 Benign cytology Repeat follow up thyroid ultrasound performed 05/2020 noted stable thyroid nodules No compression symptoms Continue clinical monitoring Assessment & Plan (01/06/2023 2:02 PM CDT): No compressive symptoms. Had FNA 05/2019: benign. US completed 05/2020 w/o changes; shows multinodular goiter. Assessment & Plan (06/02/2022 10:38 AM ADVERTISER): S/p right thyroid nodule FNA biopsy 06/07/2019 [...] nodules Assessment & Plan (06/06/2020 8:35 AM ADVERTISER): S/p right thyroid nodule FNA biopsy 06/07/2019 Benign cytology No compression symptoms Repeat follow up thyroid ultrasound performed today in office, noted stable thyroid nodules Assessment & Plan (04/13/2020 9:50 AM ADVERTISER): S/p right thyroid nodule FNA biopsy 06/07/2019 Benign cytology No compression symptoms Repeat follow up thyroid ultrasound during next follow up visit Assessment & Plan (11/21/2019 4:11 PM CDT): S/p right thyroid nodule FNA biopsy 06/07/2019 Benign cytology No compression symptoms Recheck TSH Repeat follow up thyroid ultrasound during next follow up visit Assessment & Plan (03/25/2019 12:33 AM ADVERTISER): Noted right thyroid nodule on PET scan 05/2018 Performed a thyroid ultrasound in office today - see full report Bilateral thyroid nodules Plan to perform FNA biopsy of bilateral thyroid nodules No compression symptoms Abscess of right breast 12/03/2018 Encounter for follow-up surveillance of breast c ancer 11/15/2018 Malignant neoplasm of right female breast 2018 Overview (09/06/2018): Added automatically from request for surgery [id number] 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 Zetia 10mg daily. Chronic problem. Last lipid panel: 08/26/21 YZS=017, JD=208. Labs completed 10/[address] Isidro Del Valle (see note) Assessment & Plan (07/13/2023 1:35 PM ADVERTISER): LDL - high Pt intolerant to statin - on Zetia 10 mg oral daily Assessment & Plan (01/06/2023 1:36 PM CDT): Intolerance to statin therapy. Chronic problem. Last lipid panel: 08/26/21 WPI=981, IE=272. Assessment & Plan (06/02/2022 10:36 AM ADVERTISER): LDL - high Pt intolerant to statin [...] daily Assessment & Plan (06/06/2020 8:35 AM ADVERTISER): LDL - high Pt intolerant to statin - on Zetia 10 mg oral daily Assessment & Plan (04/13/2020 9:49 AM ADVERTISER): LDL - high Pt intolerant to statin - on Zetia 10 mg oral daily Assessment & Plan (11/21/2019 4:12 PM CDT): LDL - high Pt intolerant to statin - on Zetia 10 mg oral daily Assessment & Plan (03/21/2019 10:21 PM ADVERTISER): LDL - high Pt intolerant to statin - on Zetia 10 mg oral daily Assessment & Plan (09/14/2018 12:30 PM CDT): LDL - high Pt intolerant to statin - on Zetia 10 mg oral daily Assessment & Plan (06/13/2018 7:15 PM ADVERTISER): LDL - high Pt intolerant to statin [...] Had exam last year at [facility] 01/08/23 (no DMR). Labs completed [...] (renal) Assessment & Plan (07/13/2023 1:36 PM ADVERTISER): Chronic, slight worsening A1c 7.6% Reviewed CGM [...] Had exam last year at [facility]. Will send letter to get [...] infection. Assessment & Plan (06/02/2022 10:44 AM ADVERTISER): Chronic, overall fair controlled for pt age [...] months Assessment & Plan (06/06/2020 8:35 AM ADVERTISER): Chronic, uncontrolled, worsening HbA1c - 8.0 % [...] months Assessment & Plan (04/13/2020 9:49 AM ADVERTISER): Chronic, uncontrolled, worsening HbA1c - 7.2 % [...] months. Assessment & Plan (03/21/2019 10:19 PM ADVERTISER): Diabetes is improving with treatment. A1c - [...] months. Assessment & Plan (06/13/2018 7:15 PM ADVERTISER): Diabetes is chronic, overall well controlled for [...] months. Assessment & Plan (05/25/2017 7:39 PM ADVERTISER): Diabetes is improving, but occasionally complicated by [...] 12/22/2016 Assessment & Plan (07/13/2023 1:35 PM ADVERTISER): Chronic, well controlled Continue amlodipine Assessment & Plan (01/06/2023 1:51 PM CDT): Chronic problem. Controlled on current Carvedilol 6.25mg bid, losartan 100mg daily, amlodipine 10mg daily Managed by Dr Isidro Del Valle (nephro). Has appt next Thursday. Sees him q4 mos. Assessment & Plan (06/02/2022 10:36 AM ADVERTISER): Chronic, well controlled Assessment & Plan (08/26/2021 4:04 PM CDT): Chronic, improving control Pt following with Cut Off Saw Operator Assessment & Plan (12/03/2020 8:34 PM CDT): Chronic, improving control Pt following with Cut Off Saw Operator Assessment & Plan (08/13/2020 8:32 PM CDT): Chronic, uncontrolled, worsening Pt following with Cut Off Saw Operator Advised to start taking Losartan 50 mg as she was prescribed Advised home BP monitoring Assessment & Plan (06/06/2020 8:36 AM ADVERTISER): Chronic, improving with treatment Continue current medications Assessment & Plan (04/13/2020 9:50 AM ADVERTISER): Chronic, improving with treatment Continue current medications Assessment & Plan (11/21/2019 4:12 PM CDT): Chronic, improving with treatment Continue current medications Assessment & Plan (03/21/2019 10:24 PM ADVERTISER): Chronic, improving with treatment Continue current medications Assessment & Plan (09/14/2018 12:30 PM CDT): Well controlled for pt age Assessment & Plan (06/13/2018 7:15 PM ADVERTISER): Well controlled for pt age Assessment & [...] 8:34 PM CDT): Chronic, stable Follows with Cut Off Saw Operator Assessment & Plan (06/06/2020 8:36 AM ADVERTISER): Chronic, stable Follows with Cut Off Saw Operator Assessment & Plan (04/13/2020 9:50 AM ADVERTISER): Chronic, stable Follows with Cut Off Saw Operator Assessment & Plan (11/21/2019 4:10 PM CDT): Chronic, stable Assessment & Plan (03/21/2019 10:21 PM ADVERTISER): Chronic, stable Assessment & Plan (09/14/2018 12:30 PM CDT): Follows with Dr. Leopoldo MCCAIN ( production floater ) Assessment & Plan (06/13/2018 7:15 PM ADVERTISER): Follows with Dr. Leopoldo MCCAIN ( production floater ) Assessment & Plan (02/15/2018 3:10 PM CDT): Follows with Dr. Leopoldo MCCAIN ( production floater ) Assessment & Plan (08/17/2017 11:50 PM CDT): Follows with Dr. Leopoldo MCCAIN ( production floater ) Assessment & Plan (12/22/2016 1:55 PM CDT): Follows with Dr. Leopoldo MCCAIN ( production floater ) Resolved Problems Problem Noted Date Diagnosed Date Resolved Date Morbid (severe) obesity due to excess calories 12/14/2023 12/14/2023 Multinodular goiter 06/07/2019 10/07/19 25 Morbid obesity with BMI of 40.0-44.9, adult 12/22/2016 12/14/2023 Assessment & Plan (06/02/2022 10:36 AM ADVERTISER): Counseled on diet exercises is a limitation Assessment & Plan (08/26/2021 4:04 PM CDT): Counseled on diet exercises is a limitation Assessment & Plan (12/03/2020 8:37 PM CDT): Counseled on diet Exercise is a limitation Assessment & Plan (08/13/2020 8:32 PM CDT): Counseled on diet Exercise is a limitation Assessment & Plan (06/06/2020 8:35 AM ADVERTISER): Counseled on diet and exercise Assessment & Plan (11/21/2019 4:12 PM CDT): Chronic, worsening Discussed about healthy lifestyle habits advise to work on healthy diet, avoid processed foods , increase vegetables and protein and cut back on carb portions and also avoid fruit juices and regular soda and desserts - exercise is a limitation Assessment & Plan (03/21/2019 10:21 PM ADVERTISER): Chronic, worsening Discussed about healthy lifestyle habits [...] weekly Assessment & Plan (06/13/2018 7:17 PM ADVERTISER): Obesity is unchanged Advised to increase physical [...] 06/19/2016 - Hypercholesterolemia High choles terol; Comments: [facility] 06/19/2016 - Anemia Anemia; Comments : [facility] 06/19/2016 - Hx Other Medical cataracts; Comm ents: [facility] 06/19/2016 - Hx Other Medical kidney; Comment s: [facility] 06/19/2016 - Hypertension Hypertension Atrial fibrillation (HCC) [...] on file Legal Sex Female 1:08 PM ADVERTISER Gender Identity Not on file Sexual Orientation [...] history exists Medical Devices Implanted Type Area International Project Engineer Device Identifier Shelf Expiration Date Model / Serial / Lot Bard Peripheral Vascular [id number] Powerport Clearvue Airguard 8fr 1 Lumen Lightweight Intermediate Latex Free - S0 - [id number] Implanted:Qty: 1 on 05/24/2018 by Humaira Amato MD at [facility] Catheter Left: Chest [employer] [id number] 06/10/2019 [id number] / 0 / [id number] Procedures Procedure Name Priority Date/Time Associated Diagnosis [...] Lipid panel (07/22/2024 11:30 AM CDT) Pathologist [facility] [place] SCRIBED Cholesterol, Total 222(A) 100 - 199 [facility] SCRIBED HDL 33 >39 - NA [facility] SCRIBED LDL 145(A) 0 - 99 [facility] SCRIBED Triglycerides 243(A) 0 - 149 [facility] Blood 07/22/2024 11:3 0 AM CDT us Historical Provider LAB BLOOD ORDERABLES Edit ed Result - Final [facility] * (ABNORMAL) Comprehensive metabolic panel (07/22/2024 11:30 AM CDT) Pathologist [facility] [place] SCRIBED Sodium 139 134 - 144 mmol/L [...] Bone mineral density was performed on a WORKING OUT WORKS Discovery Densitometer. Based on machine cross-calibration and [...] by the International Society of Clinical Densitometry. [id number] Wayne Reddy MD IM DXA PROCEDURES Final R esult * DIABETES EYE EXAM (01/08/2023 7:22 AM CDT) Historical Provider HEALTH MAINTENANCE Edited Result - Final from Last 3 Months or Most Recently Relevant to Health Maintenance Insurance [facility] MEDICARE ADVANTAGE MEDICARE ADVANTAGE MEDICARE ADVANTAGE Advance Directives For more information, please contact: [phone] * Full Code (Latest Code Status on [...] 10:45 PM 12/03/2018 9:18 PM Care Teams Collateral Analyst Relationship Specialty Start Date End Date Ag Santana MD [address] [place] [address] PCP - General Internal Medicine 07/13/23 Sarah Hardin MD [address] [facility] [address] [place] [address] Radiation Oncologist Radiation Oncology 09/10/18 Humaira Amato MD [address] [place] [address] Surgeon Surgical Oncology 09/10/18 Berna Conte, PhD [address] [place] [address] Nurse Practitioner Radiation Oncology 11/15/18 Qi Hope MD [address] [place] [address] Medical Oncologist/Retail Support Specialist Medical Oncology 11/15/18 Anuel Del Valle DO [address] [place] [address] Consulting Physician Nephrology 06/02/22 [place] [address] [facility] [address] [place] [address] Consulting Physician Endocrinology 08/05/23
--- OUTSIDE RECORDS SUMMARY | 2025-02-27 19:50 | XMS_ITS | Data Portability ---
Author Organization [place] - S [employer], Main Office Address [address] [place] [address] Care Team Providers Care Dishtank Operator Name Role Phone CARRIE SANTANA Primary Care Provider TONIE VELASCO Child Care Education Coordinator MAURA RODRIGUEZ Split Leather Department Supervisor ANUEL YORK Rn Lab SHARONA BLEDSOE Data Report Analyst Assessment Encounter Date Assessment Date Assessment LastModified by Organization Details LastModified Time 01/21/2024 01/21/2024 07/09/2023: A1C 7.7 Chol 300, TG 444 HGB 11.4 12/03/2023: Dr Gallagher BUN 60H, Cr 1.80H, GFR 27, Gluc 129 H/H 10.0/32.1 [email or web address] Not available 01/21/2024 14:48:34 04/14/2024 04/14/2024 07/09/2023: A1C 7.7 Chol 300, TG 444 HGB 11.4 12/03/2023: Dr Gallagher BUN 60H, Cr 1.80H, GFR 27, Gluc 129 H/H 10.0/32.1 04/04/2024: H/H 10.4/32.9 Gluc 167, BUN 46, Cr 1.85, GFR 26, K 5.3 A1C 8.2 Chol 286, TG 268, LDL 198 [email or web address] Not available 04/14/2024 14:16:33 08/16/2024 08/16/2024 07/09/2023: A1C 7.7 Chol 300, TG 444 HGB 11.4 12/03/2023: Dr Gallagher BUN 60H, Cr 1.80H, GFR 27, Gluc 129 H/H 10.0/32.1 04/04/2024: H/H 10.4/32.9 Gluc 167, BUN 46, Cr 1.85, GFR 26, K 5.3 A1C 8.2 Chol 286, TG 268, LDL 198 07/22/2024: H/H 10.0/32.5 Gluc 150, BUN 49, Cr 2.21, GFR 21, Ca 8.4, TP 5.8 Chol 222, TG 243, LDL 145 A1C 7.5 45 minutes spent in office with her and her daughter, labs reviewed, discussed her care with Dr York and Dr Bledsoe and referrals provided [email or web address] Not available 08/16/2024 17:04:19 12/22/2024 12/22/2024 07/09/2023: A1C 7.7 Chol 300, TG 444 HGB 11.4 12/03/2023: Dr Gallagher BUN 60H, Cr 1.80H, GFR 27, Gluc 129 H/H 10.0/32.1 04/04/2024: H/H 10.4/32.9 Gluc 167, BUN 46, Cr 1.85, GFR 26, K 5.3 A1C 8.2 Chol 286, TG 268, LDL 198 07/22/2024: H/H 10.0/32.5 Gluc 150, BUN 49, Cr 2.21, GFR 21, Ca 8.4, TP 5.8 Chol 222, TG 243, LDL 145 A1C 7.5 [email or web address] Not available 12/22/2024 16:43:23 Plan of Treatment Reminders Order Date Submit Date Provider Last Modified By Organization Details Last Modified Time Details Appointments Any 15 2025 01:00P Chava lopez MD Not available Not available Not available Lab vitamin B12 + folate, serum or blood [email or web address] (Lab), [address] [place], [address], 12/23/2024 10:14:58 lipid panel, serum 2024 025 [facility] (Lab), [address] [place], [address], 01/12/2025 17:31:55 CBC w/ auto diff [address] (Lab), [address] [place], [address], 12/23/2024 10:14:58 CMP, serum or plasma 2024 025 [facility] (Lab), [address] [place], [address], 01/12/2025 17:31:55 TSH, serum or plasma [address] (Lab), [address] [place], [address], 12/23/2024 10:14:58 vitamin D3, 25-hydro xy, serum [address] (Lab), [address] [place], [address], 12/23/2024 10:14:57 glycohem oglobin, total, blood [address] (Lab), [address] [place], [address], 12/23/2024 10:14:57 microalb umin, urine [address] (Lab), [address] [place], [address], 12/23/2024 10:14:57 lipid panel, serum [email or web address] [place] [address] (Lab), [address] [place], [address], 02/13/2025 15:14:42 CBC w/ auto diff [address] (Lab), [address] [place], [address], 02/13/2025 15:14:43 CMP, serum or plasma [address] (Lab), [address] [place], [address], 02/13/2025 15:14:43 TSH, serum or plasma [address] (Lab), [address] [place], [address], 02/13/2025 15:14:43 vitamin B12 + folate, serum or blood [address] (Lab), [address] [place], [address], 02/13/2025 15:14:43 vitamin D3, 25-hydro xy, serum [address] (Lab), [address] [place], [address], 02/13/2025 15:14:42 glycohem oglobin, total, blood [address] (Lab), [address] [place], [address], 02/13/2025 15:14:42 microalb umin, urine [address] (Lab), [address] [place], [address], 02/13/2025 15:14:42 lipid panel, serum 2023 024 [facility] (Lab), [address] [place], [address], 07/24/2024 10:20:28 CBC w/ auto diff 2023 024 [facility] (Lab), [address] [place], [address], 07/24/2024 10:20:28 CMP, serum or plasma 2023 024 [facility] (Lab), [address] [place], [address], 07/24/2024 10:20:28 TSH, serum or plasma [address] (Lab), [address] [place], [address], 10/12/2024 14:07:42 vitamin B12 + folate, serum or blood 2023 024 [facility] (Lab), [address] [place], [address], 07/24/2024 10:20:29 vitamin D3, 25-hydro xy, serum 2023 024 [facility] (Lab), [address] [place], [address], 07/24/2024 10:20:29 glycohem oglobin, total, blood 2023 024 [facility] (Lab), [address] [place], [address], 07/24/2024 10:20:29 microalb umin, urine [address] (Lab), [address] [place], [address], 10/12/2024 14:07:42 lipid panel, serum [address] (Lab), [address] [place], [address], 07/19/2024 11:25:50 CBC w/ auto diff [address] (Lab), [address] [place], [address], 07/19/2024 11:25:50 CMP, serum or plasma [address] (Lab), [address] [place], [address], 07/19/2024 11:25:50 TSH, serum or plasma [address] (Lab), [address] [place], [address], 07/19/2024 11:25:51 vitamin B12 + folate, serum or blood [address] (Lab), [address] [place], [address], 07/19/2024 11:25:51 vitamin D3, 25-hydro xy, serum [address] (Lab), [address] [place], [address], 07/19/2024 11:25:49 glycohem oglobin, total, blood [address] (Lab), [address] [place], [address], 07/19/2024 11:25:50 microalb umin, urine [address] (Lab), [address] [place], [address], 07/19/2024 11:25:50 Referral nephrolo gist referral - Please call patient to schedule an appointm ent. Thank you. 2024 025 [place], [address], [address], [place], [address], 12/29/2024 10:40:08 cardiolo gist referral - Please call patient to schedule an appointm ent. Thank you. 2024 025 ALVIN Bledsoe MD, [address] [facility], [address], [place], [address], 12/29/2024 11:07:[address] referral - Please call patient to schedule an appointm ent. Thank you. 2024 025 MJ MARTINEZM, [address], [address], [place], [address], 12/26/2024 12:50:02 endocrin ology referral - Please call patient to schedule an appointm ent with Tonie rick Thank you. [email or web address] [facility], [address], [address], [place], [address], 12/29/2024 10:51:03 orthoped ic surgeon referral - Please call patient to schedule an appointm ent. Thank you. 2024 025 [email or web address] Veronica Avila PHOTOGRAPHIC RESTORER, [address], [place], [address], 12/26/2024 12:40:29 physical therapis t referral - Please call patient to schedule an appointm ent. Thank you. 2024 025 [facility], [address], [address], [place], [address], 12/26/2024 13:06:10 home health referral - Please call patient to schedule an appointm ent. Thank you. 2024 025 [facility], [address], [place], [address], 12/26/2024 12:52:58 nephrolo gist referral - Please call patient to schedule an appointm ent. Thank you. 2024 025 [email or web address] [place], [address], [address], [place], [address], 11/15/2024 10:48:20 cardiolo gist referral - Please call patient to schedule an appointm ent. Thank you. 2024 025 [email or web address] Sharona Bledsoe MD, [address] [facility], [address], [place], [address], 11/15/2024 10:48:[address] referral - Please call patient to schedule an appointm ent. Thank you. 2024 025 [email or web address] Boo Reina DPM, [address] [facility], [address], [place], [address], 11/15/2024 10:48:52 endocrin ology referral - Please call patient to schedule an appointm ent with Tonie rick Thank you. [email or web address] [facility], [address], [address], [place], [address], 11/15/2024 10:48:24 physical therapis t referral - Please call patient to schedule an appointm ent. Thank you. 2024 025 [email or web address] [facility] [address] [facility], [address], [address], [place], [address], 11/15/2024 08:10:31 home health referral - Please call patient to schedule an appointm ent. Thank you. 2024 025 [email or web address] [facility], [address] [facility] [address], [place], [address], 11/15/2024 10:48:21 nephrolo gist referral 2023 024 [email or web address] [place], [address] [facility], [address], [place], [address], 04/14/2024 20:22:57 cardiolo gist referral - Please call patient to schedule . 2023 024 [email or web address] Sharona Bledsoe MD, [address] [facility], [address], [place], [address], 05/02/2024 17:19:[address] referral - Please call patient to schedule . 2023 024 [email or web address] Boo Reina DPM, [address] [facility], [address], [place], [address], 01/31/2025 08:59:22 endocrin ology referral 2023 024 Tonie Velasco LEARNING TECHNOLOGIST, [address], [place], [address], 04/14/2024 20:22:59 orthoped ic surgeon referral - Please call patient to schedule . 2023 024 [email or web address] Veronica Avila PHOTOGRAPHIC RESTORER, [address], [place], [address], 01/31/2025 08:59:22 physical therapis t referral - Please call patient to schedule . [email or web address] [facility], [address], [place], [address], 01/02/2025 08:46:12 home health referral - Please call patient to schedule . 2023 024 [email or web address] [facility], [address] [place], [address], 06/02/2024 12:16:52 nephrolo gist referral 2023 024 [email or web address] [place], [address], [place], [address], 01/21/2024 17:44:54 cardiolo gist referral - Please call patient to schedule . 2023 024 [email or web address] Sharona Bledsoe MD, [address] [facility], [facility] [address], [place], [address], 09/01/2024 09:21:[address] referral 2023 024 [email or web address] Gil Woodson DPM, [address] [facility], [facility] [address], [place], [address], 01/21/2024 17:45:58 orthoped ic surgeon referral 2023 024 [email or web address] Darius Santo MD, [address], [facility], [place], [address], 01/21/2024 17:45:59 physical therapis t referral - Please call patient to schedule . 2023 024 [email or web address] [facility], [address], [place], [address], 01/26/2024 14:42:44 home health referral - Please call patient to schedule . 2023 024 [email or web address] [facility], [address] [place], [address], 01/25/2024 12:03:09 Procedures None recorded . Surgeries None recorded . Imaging DEXA, axial skeleton - Please call patient to schedule . 2023 024 [email or web address] [facility]), [address] [place], [address], 08/30/2024 12:33:13 Medication Orders None recorded . Patient Targets Encounter Date Encounter Id Patient Goals Patient Target Last Modified By Organization Details Last Modified Time 12/22/2024 [id number] diet, exercise, bladder , memory exercise, smoking/alc ohol intake, home safety Not available 12/21/2024 08:26:48 Patient Instructions Encounter Date Encounter Id Patient Instructions Last Modified By Organization Details Last Modified Time 12/22/2024 [id number] dementia rating scale-2* [email or web address] Not available 02/22/2025 18:12:19 multi-dimensiona l health assessment questionnaire* [email or web address] Not available 02/22/2025 18:10:51 care plan* [email or web address] Not available 18:10:42 advance directiv es: care instructions [email or web address] Not available 12/22/2024 17:01:06 advance care planning: care instructions [email or web address] Not available 12/22/2024 17:01:06 [place] Advance Directives [email or web address] Not available 12/22/2024 17:01:08 Personalized a lt Plan and Screening Recommendations Advance Directives - Do you have one? Yes Advance Directives - Do we have your advance directive on file in your health record? No, please bring in a copy at your earliest convenience Primary Prevention/Interven tion (prevents or decreases the chance of common diseases from occurring) Smoking Risk: Non Smoker Alcohol Misuse Screening: Negative Weight: Overweight Physical activity: Need more exercise/physical activity Nutrition: Average Fall Risk (screened today): High Vaccines Pneumococcal: Recommended today Influenza: Recommended today Chronic Disease Risks Stroke: Intermediate Risk Active diagnosis, Continue current treatment plan Heart Attack: Intermediate Risk Active diagnosis, Continue current treatment plan Clogging of the Arteries: Active diagnosis, Continue current treatment plan Diabetes: High Risk Active diagnosis, Continue current treatment plan Secondary Prevention/Interven tion (detects treatable diseases before they may cause symptoms, disability, or ) Breast Cancer Screening with mammogram: Recommended today Cervical/Uterine/Ov emma Cancer Screening: No screening necessary Osteoporosis Screening: Recommended today Date Screening Last Performed: Colon Cancer Screening: No screening necessary Date Screening Last Performed: Eye Disease Screening: No Eye exam necessary Dementia Risk: Low Depression Screening: Positive Active diagnosis, Continue current treatment plan Not available 12/22/2024 16:53:30 Reason for Referral Rn Lab Referral for Ch ronic kidney disease Referring Physician: Laura Wagner, Encounter Date: 01/21/2024 Bin Packer Referral for Type 2 diabetes mellitus without complication Referring Physician: Laura Wagner, Encounter Date: 01/21/2024 Physical Therapist Referral for Unsteady when walking Please call patient to schedule. Referring Physician: Laura Wagner, Encounter Date: 01/21/2024 Orthopedic Surgeon Referral for Pain of bilateral knee joints Referring Physician: Laura Wagner, Encounter Date: 01/21/2024 Home Health Referral for Uns teady when walking Please call patient to schedule. Referring Physician: Laura Wagner, Encounter Date: 01/21/2024 Data Report Analyst Referral for At rial fibrillation Please call patient to schedule. Referring Physician: Laura Wagner, Encounter Date: 01/21/2024 Rn Lab Referral for Ch ronic kidney disease Referring Physician: Laura Wagner, Encounter Date: 04/14/2024 Bin Packer Referral for Type 2 diabetes mellitus without complication Please call patient to schedule. Referring Physician: Laura Wagner, Encounter Date: 04/14/2024 Physical Therapist Referral for Unsteady when walking Please call patient to schedule. Referring Physician: Laura Wagner, Encounter Date: 04/14/2024 Orthopedic Surgeon Referral for Pain of bilateral knee joints Please call patient to schedule. Referring Physician: Laura Wagner Medicine, Encounter Date: 04/14/2024 Home Health Referral for Uns teady when walking Please call patient to schedule. Referring Physician: Carrie Santana Internal Medicine, Encounter Date: 04/14/2024 Data Report Analyst Referral for At rial fibrillation Please call patient to schedule. Referring Physician: Carrie Santana Internal Medicine, Encounter Date: 04/14/2024 Endocrinology Referral for T ype 2 diabetes mellitus without complication Referring Physician: Carrie Santana Internal Medicine, Encounter Date: 04/14/2024 Rn Lab Referral for Ch ronic kidney disease Please call patient to schedule an appointment. Thank you. Referring Physician: Laura Wagner Medicine, Encounter Date: 08/16/2024 Bin Packer Referral for Type 2 diabetes mellitus without complication Please call patient to schedule an appointment. Thank you. Referring Physician: Laura Wagner Medicine, Encounter Date: 08/16/2024 Physical Therapist Referral for Unsteady when walking Please call patient to schedule an appointment. Thank you. Referring Physician: Laura Wagner Medicine, Encounter Date: 08/16/2024 Home Health Referral for Uns teady when walking Please call patient to schedule an appointment. Thank you. Referring Physician: Laura Wagner Medicine, Encounter Date: 08/16/2024 Data Report Analyst Referral for At rial fibrillation Please call patient to schedule an appointment. Thank you. Referring Physician: Laura Wagner Medicine, Encounter Date: 08/16/2024 Endocrinology Referral for T ype 2 diabetes mellitus without complication Please call patient to schedule an appointment with Tonie Velasco. Thank you. Referring Physician: Laura Wagner Medicine, Encounter Date: 08/16/2024 Rn Lab Referral for Ch ronic kidney disease Please call patient to schedule an appointment. Thank you. Referring Physician: Carrie Santana Internal Medicine, Encounter Date: 12/22/2024 Bin Packer Referral for Type 2 diabetes mellitus without complication Please call patient to schedule an appointment. Thank you. Referring Physician: Carrie Santana Internal Medicine, Encounter Date: 12/22/2024 Physical Therapist Referral for Unsteady when walking Please call patient to schedule an appointment. Thank you. Referring Physician: Carrie Santana Internal Medicine, Encounter Date: 12/22/2024 Home Health Referral for Uns teady when walking Please call patient to schedule an appointment. Thank you. Referring Physician: Laura Wagner Medicine, Encounter Date: 12/22/2024 Data Report Analyst Referral for At rial fibrillation Please call patient to schedule an appointment. Thank you. Referring Physician: Laura Wagner Medicine, Encounter Date: 12/22/2024 Endocrinology Referral for T ype 2 diabetes mellitus without complication Please call patient to schedule an appointment with Tonie Velasco. Thank you. Referring Physician: Laura Wagner Medicine, Encounter Date: 12/22/2024 Orthopedic Surgeon Referral for Pain of bilateral knee joints Please call patient to schedule an appointment. Thank you. Referring Physician: Laura Wagner Medicine, Encounter Date: 12/22/2024 Results Created Date Observation Date Name Description Value Unit Range Abnormal Flag Note LastModifiedBy Organization Detail LastModifiedTime 08/26/1908/24/2024 imagi ng/di marty tic resul t No observ ation record ed. [place] [id number] [place], [address], 08/25/2024 11:23:35 Result Notes None recorded. Problems Name Problem SNOMED Code Status Onset Date Resolution Date Notes Provider Name and Address Organization Details Recorded Time Hyperkalem ia 35297458 Active Not Available [employer] 4 06:39:40 Gastroesop hageal reflux disease 737570593 Active Not Available [employer] 4 06:39:40 Anemia 277538433 Active Not Available [employer] 4 06:39:40 Type 2 diabetes mellitus without complicati on 982486330 Active Not Available [employer] 4 06:39:40 Depressive disorder 13580024 Active Not Available [employer] 4 06:39:40 Sinusitis 99631286 Active Not Available [employer] 4 06:39:40 Osteoarthr itis 446780934 Active Not Available [employer] 4 06:39:40 Chronic kidney disease stage 3 213429054 Active Not Available [facility] 4 06:39:40 Atrial fibrillati on 19780200 Active Not Available [facility] 4 06:39:40 Acute upper respirator y infection 51836950 Active Not Available [facility] 4 06:39:40 Hyperlipid emia 18123005 Active Not Available [employer] 4 06:39:40 Essential hypertensi on 37969105 Active Not Available [facility] 4 06:39:40 Pain in right lower limb 907073938 Active 2016 Not Available [facility] 4 06:39:40 Upper respirator y infection 89578706 Active 2021 Not Available [facility] 4 06:39:40 Gout 14020228 Active 2022 Not Available [facility] 4 06:39:40 Generalize d anxiety disorder 41031133 Active 2022 Not Available [facility] 4 06:39:40 Chronic kidney disease stage 4 794415169 Active 2022 Not Available [facility] 4 06:39:40 Metastatic malignant neoplasm 375757666 Active 2022 Not Available [facility] 4 06:39:40 Supraventr icular tachycardi a 1215908 Active 2022 Not Available [facility] 4 06:39:40 Osteoarthr itis of knee 083570432 Active 2022 Not Available [facility] 4 06:39:40 Obesity 665075067 Active 2022 Not Available [facility] 4 06:39:40 Malignant neoplasm of breast 422111529 Active 2022 Not Available [facility] 4 06:39:40 Diabetes mellitus 33202257 Active 2022 Not Available [facility] 4 06:39:40 Mixed anxiety and depressive disorder 927395243 Active 2022 Not Available [facility] 4 06:39:40 Chronic kidney disease 428313743 Active 2023 Carrie irving MD [address], [address], [place], [address] , [facility] [employer] [facility] [employer] [facility] 4 14:59:14 Malignant neoplasm of breast 824296258 Active 2023 Carrie irving MD [address], [address], [place], [address] , [employer] [facility] [employer] [facility] 4 15:01:57 Abnormal gait 41959178 Active 2023 Marixa Charles MA null, [place] [employer] [facility] 4 12:59:00 Dementia 40899385 Active 2023 Marixa Charles MA null, [place] - S [employer] [facility] 4 10:38:02 Unsteady when walking 70785923 Active 2023 Marixa Charles MA null, [employer] - S [place] [employer] [facility] 4 10:57:39 Pain of bilateral knee joints 4681710763037 04 Active 2023 Carrie irving MD [address], [address], [place], [address] , [facility] [employer] S [place] [employer] [facility] 4 15:38:29 Pain of wrist region 16557344 Active 2023 Carrie irving MD [address], [address], [place], [address] , [facility] - [place] [facility] 4 14:07:22 Cough 26950441 Active 2024 DUC Renteria, [place] - [place] [facility] 5 12:29:27 Acute right otitis media 237888545 Active 2024 Carrie irving MD [address], [address], [place], [address] , [facility] - [place] [facility] 5 16:37:09 Grief finding 929276086 Active 2024 DUC Renteria, [place] - [place] [facility] 5 17:25:59 Acute gout 304223627 Active 2024 DUC Renteria, [place] [facility] 5 16:02:54 Problem Notes None recorded. Procedures Surgical History Date Name Laterality Status Provider Name and Address Organization Details Recorded Time 12/23/19 Medicare Wellness CPT Code, subsequent completed Tonie Collins [place] - [place] [facility] 12/21/2024 08:26:36 01/04/20 Chronic care management services completed Yaz Nichols [facility] [employer] [facility] 01/04/2024 11:50:44 11/23/19 24 Chronic care management services completed Yaz Nichols [facility] [place] [facility] 11/23/2023 13:44:46 10/19/19 24 Chronic care management services completed Yaz Nichols [facility] - S [employer] [facility] 10/19/2023 13:33:04 09/24/19 24 Medicare Wellness CPT Code, subsequent completed Rolando Morgan LPN [place] [employer] [facility] [employer] [facility] 09/24/2023 14:45:44 09/24/19 24 Medicare Wellness CPT Code, Initial completed Rolando Morgan LPN [facility] [place] [employer] [facility] 09/24/2023 16:09:47 09/09/19 24 Chronic care management services cancelled Glory Freitas [place] [employer] [facility] [employer] [facility] 01/13/2024 18:40:05 partial nephrectomy completed Not Available [facility] 07/09/2022 04:42:13 Hysterectomy completed Not Available [facility] 07/09/2022 04:42:13 Imaging Results None recorded. Procedure Notes None recorded. Medical Equipment None Reported. Allergies Allergen ID Allergen Name Allergen Category Reaction Reaction Severity Criticality Documentation Date Start Date Code Code System Note Provider Name and Address Organization Details Recorded Time 71226 Product containin g penicilli n (product) medicatio n Not available Not available Not available 01/04/2024 26910 8001 SNOMED Other react ions and sever ities : 'Adve rse react ion to subst ance' . Yaz Nichols CCM [place] [employer] [facility] [employer] [facility] 4 11:35:55 [id number] diazepam medicatio n Not available Not available Not available 01/04/2024 3322 RxNorm Other react ions and sever ities : 'Adve rse react ion to subst ance' . Yaz Nichols CCM [place] [employer] [facility] [employer] [facility] 4 11:35:55 14437 cefazolin medicatio n Not available Not available Not available 01/04/2024 2180 RxNorm Other react ions and sever ities : 'Adve rse react ion to subst ance' . Yaz Nichols CCM [place] [employer] [facility] [employer] [facility] 4 11:35:55 7629 Product containin g 3-hydroxy -3-methyl glutaryl- coenzyme A reductase inhibitor (product) medicatio n Not available Not available Not available 07/09/2022 89339 [id number] SNOMED Other react ions and sever ities : 'Adve rse react ion to subst ance' . Yaz Nichols CCM [place] [employer] [facility] [employer] [facility] 4 11:35:55 7630 metformin medicatio n diarrhea moderate Not available 07/09/2022 6809 RxNorm Not Available [facility] 05:02:36 7631 Jardiance medicatio n lighthead edness severe Not available 07/09/2022 17666 59 RxNorm leg cramp s and bruis ing Not Available [facility] 3 05:02:36 7632 cefazolin sodium medicatio n other severe Not available 07/09/2022 1 RxNorm blist ers and kidne ys almos t shut down Not Available [facility] 3 05:02:36 Medications Name Sig Start Date Stop Date Status Note LastModified by Organization Details LastModified Time Singulair 10 mg tablet Take 1 tablet every day by oral route. 10/15 completed Not Available Not Available Not Available losartan 50 mg tablet TAKE 1 TABLET BY MOUTH EVERY NIGHT 08/22 completed Not Available Not Available Not Available nifedipin e ER 30 mg tablet,ex tended release 24 hr 11/[address] York Not Available Not Available Not Available amoxicill in 500 mg capsule TAKE ONE CAPSULE BY MOUTH EVERY 12 HOURS 06/10 completed Not Available Not Available Not Available Levaquin 250 mg tablet Take 1 tablet every day by oral route. 10/15 completed Not Available Not Available Not Available metformin 500 mg tablet TAKE TWO TABLETS TWICE DAILY 06/06 completed Not Available Not Available Not Available carvedilo l 6.25 mg tablet TAKE 1 TABLET BY MOUTH TWICE DAILY active Not Available Not Available No t Available prednison e 10 mg tablet Take by oral route. 10/15 completed Not Available Not Available Not Available doxycycli ne hyclate 100 mg capsule TAKE 1 CAPSULE BY MOUTH TWICE DAILY FOR 7 DAYS 08/22 completed Not Available Not Available Not Available torsemide 20 mg tablet TAKE 1 AND 1/2 TABLETS BY MOUTH DAILY active Not Available Not Available No t Available diltiazem ER (XR/XT) 240 mg capsule,e xtended release 24 hr, controlle d TAKE 1 CAPSULE DAILY 03/25 completed Not Available Not Available Not Available azithromy al 250 mg tablet TAKE 2 TABLETS BY MOUTH FIRST DAY THEN TAKE 1 TABLET BY MOUTH EVERY DAY 08/16 completed Not Available Not Available Not Available fluconazo le 150 mg tablet Take 1 tablet weekly x 4 weeks active Not Available Not Available No t Available metoprolo l succinate ER 50 mg tablet,ex tended release 24 hr TK 1 T PO D active Not Available Not Available No t Available diltiazem CD 240 mg capsule,e xtended release 24 hr TAKE 1 CAPSULE DAILY 08/16 completed Not Available Not Available Not Available sertralin e 100 mg tablet TAKE 1 TABLET BY MOUTH EVERY DAY 08/16 completed Not Available Not Available Not Available Debrox 6.5 % ear drops INSTILL 5 DROPS INTO AFFECTED EAR(S) BY OTIC ROUTE 2 TIMES PER DAY x 4 days 08/28 completed Not Available Not Available Not Available amlodipin e 5 mg tablet 05/19 completed Not Available Not Available Not Available sulfameth oxazole 800 mg-trimet hoprim 160 mg tablet TAKE ONE TABLET TWICE DAILY FOR 7 DAYS 03/16 completed Not Available Not Available Not Available tramadol 50 mg tablet TAKE 1 TABLET BY MOUTH EVERY 8 HOURS NEEDED 05/27 completed Not Available Not Available Not Available triamcino lone acetonide 0.1 % topical cream JAIME THIN LAYER EXT AA BID PRN active Not Available Not Available No t Available spironola ctone 25 mg tablet active Not Available Not Available No t Available glimepiri de 2 mg tablet TK 1 T PO AFTER ADÁN AND AFTER DINNER active Not Available Not Available No t Available lidocaine -prilocai ne 2.5 %-2.5 % topical cream APPLY QUARTER- SIZE AMOUNT TO PORT SITE 30-40 MINUTES BEFORE TREATMEN T. DO NOT RUB IN. COVER WITH PLASTIC WRAP. 08/16 completed Not Available Not Available Not Available warfarin 4 mg tablet TAKE 1 TABLET BY MOUTH EVERY EVENING active Not Available Not Available No t Available glimepiri de 1 mg tablet TAKE 2 TABLETS DAILY DIRECTED 11/05 completed Not Available Not Available Not Available Kenalog 40 mg/mL suspensio n for injection 10/[address] [facility]#: [phone] Not Available Not Available Not Available garlic 1,000 mg capsule Take 1 capsule every day by oral route. 03/16 completed Not Available Not Available Not Available citalopra m 20 mg tablet TAKE 1 TABLET BY MOUTH EVERY DAY active Not Available Not Available No t Available diltiazem ER 120 mg capsule,2 4 hr,extend ed release TAKE ONE CAPSULE BY MOUTH DAILY 08/22 completed Not Available Not Available Not Available sodium bicarbona te 650 mg tablet TAKE 1 TABLET BY MOUTH TWICE DAILY 06/10 completed Not Available Not Available Not Available diltiazem CD 300 mg capsule,e xtended release 24 hr TAKE 1 CAPSULE DAILY 06/06 completed Not Available Not Available Not Available amlodipin e 10 mg tablet active Not Available Not Available Not Available benzonata te 100 mg capsule TAKE 1 CAPSULE BY MOUTH THREE TIMES DAILY NEEDED 06/10 completed Not Available Not Available Not Available WelChol 625 mg tablet Take 2 tablets every day by oral route. active Not Available Not Available No t Available Cipro 500 mg tablet Take 1 tablet every 12 hours by oral route for 3 days. active Not Available Not Available No t Available nystatin 100,000 unit/gram topical cream APPLY TO THE AFFECTED AREAS UNDER THE BREAST 2 TIMES PER DAY NEEDED active Not Available Not Available No t Available clotrimaz ole-betam ethasone 1 %-0.05 % topical cream APPLY TWICE DAILY TO THE AFFECTED AREA UNTIL CLEAR 03/16 completed Not Available Not Available Not Available lisinopri l 10 mg tablet TAKE ONE TABLET BY MOUTH TWICE A DAY 10/15 completed Not Available Not Available Not Available warfarin 5 mg tablet TAKE ONE TABLET DAILY , EXCEPT ON THURSDAY AND Y TAKE 1/2 TABLET DAILY 02/21 completed Not Available Not Available Not Available losartan 25 mg tablet TAKE 1 TABLET BY MOUTH EVERY NIGHT active Not Available Not Available No t Available omeprazol e 20 mg capsule,d elayed release TAKE 1 CAPSULE DAILY 10/15 completed Not Available Not Available Not Available doxazosin 4 mg tablet TAKE 1 TABLET BY MOUTH DAILY BEFORE BREAKFAS T 02/27 completed Not Available Not Available Not Available diltiazem CD 120 mg capsule,e xtended release 24 hr TAKE 1 CAPSULE DAILY 02/21 completed Not Available Not Available Not Available bumetanid e 1 mg tablet 02/27 completed Not Available Not Available Not Available lisinopri l 5 mg tablet Take 1 tablet twice a day by oral route. active Not Available Not Available No t Available furosemid e 20 mg tablet TAKE 1 TABLET BY MOUTH DAILY 09/23 completed Not Available Not Available Not Available metoprolo l succinate ER 25 mg tablet,ex tended release 24 hr TAKE ONE TABLET DAILY 11/05 completed Not Available Not Available Not Available warfarin 1 mg tablet TAKE 1/2 TABLET ONCE DAILY ALONG WITH ONE WARFARIN 4MG TABLET FOR A TOTAL DOSE OF 4 1/2MG 05/16 completed Not Available Not Available Not Available letrozole 2.5 mg tablet TK 1 T PO D active Not Available Not Available No t Available methylpre dnisolone 4 mg tablets in a dose pack FOLLOW PACKAGE DIRECTIO NS active Not Available Not Available No t Available albuterol sulfate HFA 90 mcg/actua tion aerosol inhaler INHALE 1 PUFF BY MOUTH FOUR TIMES DAILY NEEDED 06/10 completed Not Available Not Available Not Available Vitamin D2 1,250 mcg (50,000 unit) capsule 08/16 completed Not Available Not Available Not Available losartan 100 mg tablet TAKE 1 TABLET BY MOUTH EVERY NIGHT active Not Available Not Available No t Available sertralin e 50 mg tablet TAKE 1 TABLET BY MOUTH DAILY 04/14 completed Not Available Not Available Not Available Aqua Care 10 % topical cream apply daily to the affected area 04/11 completed Not Available Not Available Not Available doxycycli ne hyclate 100 mg tablet TAKE 1 TABLET EVERY 12 HOURS FOR 10 DAYS 03/16 completed Not Available Not Available Not Available calcitrio l 0.25 mcg capsule TAKE 1 CAPSULE BY MOUTH EVERY DAY active Not Available Not Available No t Available escitalop moira 10 mg tablet TAKE 1 TABLET BY MOUTH EVERY DAY 08/28 completed Not Available Not Available Not Available escitalop moira 20 mg tablet TAKE 1 TABLET BY MOUTH DAILY 04/14 completed Not Available Not Available Not Available ezetimibe 10 mg tablet TAKE 1 TABLET BY MOUTH DAILY 2024 active Not Available Not Available Not Avai lable cyclobenz aprine 5 mg tablet TID DAILY NEEDED 06/06 completed Not Available Not Available Not Available rosuvasta tin 10 mg tablet take 1 tablet every other day 03/16 completed Not Available Not Available Not Available fenofibra te 160 mg tablet TAKE ONE TABLET DAILY 03/16 completed Not Available Not Available Not Available zinc 09/08 completed OTC Not Available Not Available Not Available ferrous sulfate Take 65mg. tablet twice daily 03/16 completed Not Available Not Available Not Available Centrum Silver Take one tablet daily 03/16 completed Not Available Not Available Not Available Vitamin D3 09/08 completed OTC Not Available Not Available Not Available [place] 3 Take 350 mg. daily 03/16 completed Not Available Not Available Not Available Jantoven 5mg 1 daily 06/06 completed 5mg mon-thur s 3mg fri, sat, sun Not Available Not Available Not Available OneTouch Ultra2 Meter kit TEST TWICE A DAY 03/25 completed Not Available Not Available Not Available Breeze 2 Test Strips USE ONE STRIP IN METER TWICE A DAY active Not Available Not Available No t Available Lantus Solostar U-100 Insulin 100 unit/mL (3 mL) subcutane ous pen ADMINIST ER 14 UNITS UNDER THE SKIN DAILY active Not Available Not Available No t Available Humalog KwikPen (U-100) Insulin 100 unit/mL subcutane ous ADMINIST ER 6 TO 12 UNITS UNDER THE SKIN THREE TIMES DAILY WITH MEALS 06/10 completed Not Available Not Available Not Available Novofine 32 32 gauge x 1/4 needle USE TO TEST BLOOD SUGAR FOUR TIMES DAILY active Not Available Not Available No t Available Vitamin D3 50 mcg (2,000 unit) tablet Take 1 tablet every day by oral route. 02/21 completed Not Available Not Available Not Available Onglyza 5 mg tablet Take 1 tablet(s ) every day by oral route. active Not Available Not Available No t Available [employer]Touch Delica Lancets 33 gauge TEST TWICE DAILY active Not Available Not Available No t Available OneTouch Verio test strips USE TO CHECK FOUR TIMES DAILY DIRECTED active Not Available Not Available No t Available Vision Formula (with lutein) 2019 active Not Available Not Available Not Avai lable Jardiance 10 mg tablet TAKE 1 TABLET BY MOUTH EVERY MORNING 08/22 completed Not Available Not Available Not Available Toujeo SoloStar U-300 Insulin 300 unit/mL (1.5 mL) subcutane ous pen INJECT 10 UNITS UNDER THE SKIN AT NIGHT 02/21 completed Not Available Not Available Not Available Tresiba FlexTouch U-100 03/25 completed 10-12 units Not Available Not Available Not Available Vision Formula(A -C-E-Zn-S e-Cu) Take one tablet daily 03/16 completed Not Available Not Available Not Available OneTouch Ultra Blue Test Strip TEST TWICE DAILY active Not Available Not Available No t Available [employer] Delica Plus Lancet 30 gauge CHECK BLOOD SUGAR FOUR TIMES DAILY OR DIRECTED active Not Available Not Available No t Available Tiadylt ER 360 mg capsule,e xtended release TAKE ONE CAPSULE BY MOUTH AT BEDTIME ONCE 10/11 completed Not Available Not Available Not Available Tiadylt ER 240 mg capsule,e xtended release TAKE 1 CAPSULE BY MOUTH AT BEDTIME 08/28 completed Not Available Not Available Not Available Tiadylt ER 180 mg capsule,e xtended release 10/11 completed Not Available Not Available Not Available Nexlizet 180 mg-10 mg tablet Take by oral route for 30 days. 12/22 completed Not Available Not Available Not Available Vitals Date Recorded Body height Body mass index (BMI) Body weight Body temperature Heart rate Systolic And Diastolic Provider Name and Address Organization Details Last Updated DateTime 5 157.48 cm 38.4 kg/m2 89123.4 g 97.8 [degF] 72 /min 116/68 mm[Hg] DUC Renteria [facility] [employer] [facility] 5 16:17:15 Date Recorded Body height Body mass index (BMI) Body weight Body temperature Heart rate Oxygen saturation Oxygen saturation in Arterial blood by Pulse oximetry Respiratory rate Systolic And Diastolic Provider Name and Address Organization Details Last Updated DateTime 5 157.48 cm 36.6 kg/m2 78879.4 7 g 96.1 [degF] 58 /min 97 % 97 % 17 /min 140/68 mm[Hg] Tonie Collins [facility] [employer] [facility] 5 16:22:25 Date Recorded Body height Provider Name an d Address Organization Details Last Updated DateTime 12/25/2023 157.48 cm Yaz Nichols CCM [facility] [employer] [facility] 01/04/2024 11:35:42 Date Recorded Body height Body mass index (BMI) Body weight Body temperature Heart rate Oxygen saturation Oxygen saturation in Arterial blood by Pulse oximetry Systolic And Diastolic Provider Name and Address Organization Details Last Updated DateTime 4 157.48 cm 39.1 kg/m2 19317.7 7 g 96.6 [degF] 49 /min 97 % 97 % 150/72 mm[Hg] Kenyetta Fernandez MA [facility] [place] [employer] [facility] 4 14:59:05 Date Recorded Body height Body mass index (BMI) Body weight Body temperature Heart rate Systolic And Diastolic Provider Name and Address Organization Details Last Updated DateTime 4 157.48 cm 39.1 kg/m2 09635.7 7 g 97.7 [degF] 72 /min 110/70 mm[Hg] DUC Renteria [place] [facility] [employer] [facility] 4 14:14:32 Social History Question Answer Notes LastModified by Organization Details LastModified Time Tobacco Smoking Status Never Smoker Not Available [employer] 07/09/2022 04:07:08 Do You Have An Advance Directive? Yes [id number] Information not available 07/09/2022 Do You Wear A Helmet When Biking? No DOES NOT BIKE Information not available 09/24/2023 Are You Blind Or Do You Have Difficulty Seeing? 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 [email or web address] Information not available 09/24/2023 What Is Your Level Of Caffeine Consumption? Occasional [id number].[id number] [id number] Information not available 07/09/2022 How Much Tobacco Do You Chew? None MIGRATION.0301 [id number] Information not available 07/09/2022 What Is Your Code Status? Full Code Information not available 09/24/2023 In The 14 Days Before Symptom Onset, Have You Had Close Contact With A Laboratory-confi rmed COVID-19 While That Case Was Ill? No [id number] Information not available 07/09/2022 In The 14 Days Before Symptom Onset, Have You Had Close Contact With A Person Who Is Under Investigation For COVID-19 While That Person Was Ill? No [id number].[id number] [id number] Information not available 07/09/2022 Are You Deaf Or Do You Have Serious Difficulty Hearing? No MIGRATION.0301 [id number] Information not available 07/09/2022 What Type Of Diet Are You Following? REGULAR MIGRATION.0301 [id number] Information not available 07/09/2022 Which Illicit Or Recreational Drugs Have You Used? None MIGRATION.0301 [id number] Information not available 07/09/2022 Have There Been Any Changes To Your Family Or Social Situation? No MIGRATION.0301 [id number] Information not available 07/09/2022 What Is The Fluoride Status Of Your Home? Unknown MIGRATION.0301 [id number] Information not available 07/09/2022 Are There Any Guns Present In Your Home? No MIGRATION.0301 [id number] Information not available 07/09/2022 Do You Use Insect Repellent Routinely? No MIGRATION.0301 [id number] Information not available 07/09/2022 Where Do You Live? [place] Patient Has A Chair Lift If She Needs To Go To The Basement. MIGRATION.0301 [id number] Information not available 07/09/2022 Presence Of Domestic Violence No Information not available 09/24/2023 Guns Present In The Home? Yes [email or web address] Information not available 09/24/2023 Are You Able To Care For Yourself? Yes With Assistance. [email or web address] Information not available 09/24/2023 Are You Blind Or Do Yo Have Difficulty Seeing? Yes Dry Macular Degeneratio n. Information not available 09/24/2023 Are You Deaf Or Do You Have Serious Difficulty Hearing? No [email or web address] Information not available 09/24/2023 General Stress Level? Moderate [email or web address] Information not available 09/24/2023 Live Alone Of With Others? With Others Son Lives With Her. [email or web address] Information not available 09/24/2023 Do You Have A Medical Power Of Dump Grader? Yes Jack Danielson MIGRATION.0301 [id number] Information not available 07/09/2022 What Was The Date Of Your Most Recent Tobacco Screening? 08/16/2024 Information not available 08/16/2024 Do You Have Any Pets? No MIGRATION.0301 [id number] Information not available 07/09/2022 What Is Your Relationship Status? Last January. Information not available 09/24/2023 Do You Use Your Seat Belt Or Car Seat Routinely? Yes MIGRATION.0301 [id number] Information not available 07/09/2022 Do You Have Smoke And Carbon Monoxide Detectors In Your Home? Yes MIGRATION.0301 [id number] Information not available 07/09/2022 Are You Passively Exposed To Smoke? No MIGRATION.0301 220121 Information not available 07/09/2022 Are There Any Smokers In Your House? No MIGRATION.0301 [id number] Information not available 07/09/2022 Do You Use Sunscreen Routinely? No MIGRATION.0301 [id number] Information not available 07/09/2022 Has Tobacco Cessation Counseling Been Provided? No N/a Information not available 06/10/2023 How Many Years Have You Smoked Tobacco? 0 MIGRATION.0301 [id number] Information not available 07/09/2022 Have You Recently Traveled Abroad? No MIGRATION.0301 [id number] Information not available 07/09/2022 Do You Have Difficulty Walking Or Climbing Stairs? Yes MIGRATION.0301 [id number] Information not available 07/09/2022 Do You Have Any Dietary Restrictions? No MIGRATION.0301 [id number] Information not available 07/09/2022 Sex: Unknown Functional Status Question Answer Note LastModified by Organization Details LastModified Time Do you or have you ever used smokeless tobacco? Never used smokeless tobacco MIGRATION.0301 [id number] Information not available 07/09/2022 Are you currently employed? No [email or web address] Information not available 09/24/2023 Do you have transportation difficulties? No MIGRATION.0301 [id number] Information not available 07/09/2022 Are you able to care for yourself independently? Yes With assistance. Information not available 09/24/2023 Do you have difficulty dressing, bathing, grooming, or toileting? Yes Patient gets assistance with bathing. MIGRATION.0301 [id number] Information not available 07/09/2022 Do you or have you ever used e-cigarettes or vape? Never used electronic cigarettes MIGRATION.0301 [id number] Information not available 07/09/2022 What is your exercise level? None Information not available 09/24/2023 Do you use any illicit or recreational drugs? No MIGRATION.0301 [id number] Information not available 07/09/2022 Do you or have you ever used any other forms of tobacco or nicotine? No Information not available 06/10/2023 What is your level of alcohol consumption? None MIGRATION.0301 [id number] Information not available 07/09/2022 Are you able to walk independently without assistance or assistive devices? YESASSIST uses cane for ambulation. [email or web address] Information not available 09/24/2023 Do you have difficulty doing errands alone? Yes Patient does not drive. MIGRATION.0301 [id number] Information not available 07/09/2022 What is your occupation? retired MIGRATION.300 [id number] Information not available 07/09/2022 Mental Status Question Answer Note LastModified by Organizat ion Details LastModified Time Do you feel stressed (tense, restless, nervous, or anxious, or unable to sleep at night)? [id number] [email or web address] Information not available 09/24/2023 Do you have difficulty concentrating, remembering or making decisions? No [id number] 26 Information not available 07/09/2022 Family History Relationship Description Onset Age of this Age Resolved Age Notes LastModified by Organization Details LastModified Time Mother Carcinoma in situ of ovary 88 MIGRATION.368 [id number] Not available 07/09/2022 04:42:14 Father Heart disease 49 MIGRATION.043 [id number] Not available 07/09/2022 04:42:14 Daughter Diabetes mellitus MIGRATION.625 [id number] Not available 07/09/2022 04:42:15 Daughter Malignant neoplasm of bone 65 Not available 2023 14:53:58 Medical History Condition Response NERVE DISEASE N BLINDNESS N RHEUMATIC FEVER N KIDNEY STONES N BLADDER PROBLEMS N MRSA N OTHER # 1 N POLIO N LUNG DISEASE/DISORDER N COPD N RADIATION / CHEMOTHERAPY N Other # 2 N BLOOD DISEASES N SURGERY N EAR OR HEARING PROBLEMS N MUMPS N BOWEL PROBLEMS N DEPRESSION (INCLUDING POST ) N STROKE/TIA N ULCERS N BENIGN PROSTATIC HYPERPLASIA N MEASLES N MYOCARDIAL INFARCTION N OBESITY N GERD/NAUSEA N ANEURYSM N URINARY/BLADDER/KIDNEY PROBLEMS N CORONARY ARTERY DISEASE (CAD) N ADDICTION CONCERNS N ENDOMETRIOSIS N Impotence N USE OF BLOOD THINNERS N SKIN PROBLEMS N GASTROINTESTINAL DISORDER N PERIPHERAL VASCULAR DISEASE N MUSCLE,JOINT OR BONE PROBLEMS N GASTROINTESTINAL BLEEDING N BLOOD CLOTS N ASTHMA N CATARACTS N ERECTILE DYSFUNCTION N VARICOSITIES N GI PROBLEMS N Low Testosterone N INFERTILITY N AIDS/HIV N CHEMOTHERAPY / RADIATION N LIVER DISEASE N MALE HYPOGONADISM N HYPERTENSION Y Deficiency N ANXIETY DISORDER N BLOOD TRANSFUSION N ANEMIA/BLOOD DISORDER N CHRONIC EAR INFECTIONS N BRONCHITIS N TUBERCULOSIS N GLAUCOMA N FOOT PROBLEM N DIVERTICULITIS N SLEEP APNEA N CHICKENPOX N INFECTIOUS DISEASE N HEART ARRHYTHMIA N PROSTATE N INSOMNIA N HIGH CHOLESTEROL / HYPERLIPIDEMIA Y HYPERTHYROIDISM N EYE PROBLEMS N NEUROLOGICAL PROBLEMS N EDEMA N CHRONIC PAIN SYNDROME N HYPOTHYROIDISM N CAROTID BLOCKAGE N CONSTIPATION N BACK / NECK PROBLEMS N HAVE YOU BEEN HOSPITALIZED OR SEEN IN [facility] IN THE PAST YEAR ? N ATHEROSCLEROSIS N BREAST PROBLEMS N DIALYSIS N ECZEMA N OSTEOPOROSIS N ARTHRITIS N APPENDICITIS N DIABETES, TYPE Y BAD TEETH N ENT N HEARTBURN / REFLUX Y AUTISM SPECTRUM DISORDER (ASD) N HEPATITIS / LIVER DISEASE N GOUT N SLEEP DISORDER N ALZHEIMER'S DISEASE N Brain Problems N HERPES N DEMENTIA N HEADACHES/MIGRAINES N SEIZURES/EPILEPSY N VASCULAR DISEASE N PACEMAKER N Blood Disorder N DIZZINESS N HEART DISEASE/HEART PROBLEMS N KIDNEY DISEASE N MULTIPLE SCLEROSIS N CARDIAC ARRHYTHMIA N CANCER: SPECIFY Y ATRIAL FIBRILLATION N Gall Stones N PULMONARY EMBOLISM N AUTOIMMUNE DISEASE N Gynecological HistoryNo gynecological history recorded. Obstetrics History GPAL:G 0 P 7 0 0 7 Type Value Full Term 7 Living 7 Immunizations Vaccine Type Date Status Note Provider Nam e and Address Organization Details Recorded Time COVID-19, mRNA, LNP-S, PF, 30 mcg/0.3 mL dose 1 completed [facility] 14:48:51 COVID-19, mRNA, LNP-S, PF, 30 mcg/0.3 mL dose 1 completed [facility] 14:48:51 COVID-19, mRNA, LNP-S, bivalent, PF, 50 mcg/0.5 mL or 25mcg/0.25 mL dose 2 [facility] 14:48:51 Influenza, high-dose, quadrivalent, PF 3 completed CRISTI Clemons [address] [place] [address], [place], [address], [facility] 02/10/2023 14:02:11 Influenza, split virus, trivalent, PF 3 completed ROSELINE Mixon, [facility] 09/09/2023 14:48:51 COVID-19, mRNA, LNP-S, PF, 30 mcg/0.3 mL dose 1 completed [facility] 14:48:51 Influenza, high-dose, quadrivalent, PF 0 completed Not Available [facility] 05/28/2023 06:39:42 Influenza, high-dose, trivalent, PF 9 completed ROSELINE Mixon, [facility] [employer] [facility] 09/09/2023 14:48:51 SARS-COV-2 (COVID-19) vaccine, UNSPECIFIED 1 completed ROSELINE Mixon, [facility] 09/09/2023 14:48:51 Influenza, high-dose, quadrivalent, PF 2 completed Not Available [facility] 05/28/2023 06:39:42 Influenza, high-dose, quadrivalent, PF 1 completed Not Available [facility] 05/28/2023 06:39:42 Influenza, high-dose, trivalent, PF 8 completed Not Available [facility] 05/28/2023 06:39:42 Influenza, high-dose, trivalent, PF 6 completed Not Available [facility] 05/28/2023 06:39:42 Influenza, split virus, quadrivalent, PF 5 completed Not Available [facility] 05/28/2023 06:39:42 Influenza, split virus, trivalent, preservative 4 completed ROSELINE Mixon, [facility] [employer] 09/09/2023 14:48:51 Influenza, high-dose, trivalent, PF 4 completed Carrie Santana MD [address] [place] [address], [address], [facility] 05/01/2024 11:46:50 Past Encounters Encounter ID Performer Location Encounter Start Date Encounter Closed Date Diagnosis/Indication Diagnosis SNOMED-CT Code Diagnosis ICD10 Code Diagnosis IMO Codes Diagnosis Note [id number] Carrie irving MD [facility] Internal Med Kerri anton [address] [facility] , [facility] [place] [address] 08/22/2020 00:00:00 08/22/2020 17:20:27 [id number] MD BALTA Paulino[facility] Internal Med Kerri anton [address] [place] [address] [place] [address] 02/27/2021 00:00:00 02/27/2021 15:49:53 [id number] MD JAY Paulino_[facility] Internal Med Kerri anton [address] [place] [address] [place] [address] 08/28/2021 00:00:00 08/28/2021 17:29:51 [id number] [facility] [address] , [address] [address] 10/11/2021 00:00:00 10/11/2021 17:13:57 [id number] Carrie irving MD [facility] Internal Med Kerri anton [address] [place] [address] [place] [address] 03/05/2022 00:00:00 03/05/2022 15:24:00 [id number] Carrie irving MD [facility] Internal Med [facility] [address] [place] [address] , [address] [address] 05/19/2022 00:00:00 05/19/2022 13:15:50 [id number] Carrie irving MD [facility] Internal Med Kerri anton [address] [place] [address] [place] [address] 09/03/2022 13:55:29 09/03/2022 14:41:55 Gout 44304933 M10.9 we discussed dietary recommenda tichristinaconti billiehcristiano to exercise as tolerated with her PT appts, she also has a foot board non profit director she plans to usewould not recommend allopurino l as this was her first flare, she tells me after talking it through she does not want it, it was her other daughter Noemy who did Generalize d anxiety disorder 29697365 F41.1 on lexapro, she is aware of side effects/ri sks/benefi tscall office if any change in mood or behaviorsh e declines psychiatry referral we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
--- OUTSIDE RECORDS SUMMARY | 2025-02-27 19:50 | XMS_ITS | Encounter Summary ---
Author Organization [facility] [place] [employer] [facility] Address [address] [place] [address] Phone Care Team Providers Care Candle Wrapping Machine Operator Name Role Phone Carrie Santana MD Primary Care Provider [phone] Reason for Visit * Reason Comments Med Refill Encounter Details Date Type Department Care Team (Late st Contact Info) Description 09/03/2021 Refill [place] [facility] [place], [facility] [address] [facility] [address] [place] [address] Anuel Del Valle DO [address] [facility] [address] [place] [address] Social History Tobacco Use Types [...] st Contact Info) Description 03/21/2025 12:00 PM PIPE THREADER Office Visit [place] [employer] [facility] [address] [facility] [address] [place] [address] Anuel Del Valle DO [address] [facility] [address] [place] [address] documented as of this encounter Visit Diagnoses Not on filedocumented in this encounter Care Teams Candle Wrapping Machine Operator Relationship Specialty Start Date End Date Carrie Santana MD [address] [facility], [address] [place] [id number] PCP - General Internal Medicine 10/11/24 documented as of this encounter
--- OUTSIDE RECORDS SUMMARY | 2025-02-27 19:50 | XMS_ITS | Clinical Summary ---
Author Organization [facility] Melissa robert [employer] Address [address] [place] [address] Care Team Providers Care Donkey Ride Operator Name Role Phone Carrie Santana MD Primary Care Provider Allergies Active Allergy Reactions Criticality Noted Date Comments Cefazolin Other (See Comments),Unknown High 11/08/2014 System was shutting down. Blisters all over Empagliflozin Dizziness,Muscle Pain,Other (See Comments) High 08/30/2020 Bad leg cramps causing bruising Bad leg cramps causing bruising Bad leg cramps causing bruising Metformin Diarrhea Medium 03/21/2019 Ulbdsze-Ilj-Atl Reductase Inhibitors Unknown 11/08/2014 Medications amLODIPine (NORVASC) [...] 03/12/2028 3, 02/28/2021, 11/12/2018 Insurance Care Teams Donkey Ride Operator Relationship Specialty Start Date End Date Carrie Santana MD PCP - General Internal Medicine 12/08/23
--- OUTSIDE RECORDS SUMMARY | 2025-02-27 19:50 | XMS_ITS | Clinical Summary ---
Author Organization [facility] Facility Address [address] [place] [address] Care Team Providers Care Broaching Machine Set Up Operator Name Role Phone Carrie Santana MD Primary Care Provider [phone] Allergies Active Allergy Reactions Criticality Noted Date [...] Description 01/17/2025 4:30 PM CDT Office Visit [facility], [facility] [address] [place] [address] Anuel Del Valle, DO Chronic kidney disease, stage 4 (severe) (HCC) (Primary Dx); Longstanding persistent atrial fibrillation (HCC); Diastolic dysfunction; Idiopathic gout, unspecified shoulder; Macular degeneration, not otherwise specified; Personal history of breast cancer; Hypertensive chronic kidney disease; Type 2 diabetes mellitus with diabetic chronic kidney disease (HCC); Pure hypercholesterolemia , not otherwise specified 01/17/2025 Refill [facility], [facility] [address] [address] Ana Juárez CMA 01/11/2025 Orders Only [facility], [address] [phone] Anuel Del Valle, DO 12/29/2024 Documentation Only [facility], [address] [phone] Anuel Del Valle, DO 12/25/2024 Refill [facility], [address] [phone] Anuel Del Valle, DO 12/07/2024 Refill [facility], [facility] [address] [address] Anuel Del Valle, 11/29/2024 4:15 PM CDT Office Visit [facility], [facility] [address] [address] Anuel Del Valle DO Chronic [...] st Contact Info) Description 03/21/2025 12:00 PM CLIPPER AND TURNER Office Visit [facility], [facility] [address] [facility] [address] [place] [address] Anuel Del Valle DO [address] [facility] [address] [place] [address] Health Maintenance Due Date Last [...] C 2.79(H) 0.87 - 1.12 mg/L [facility] eGFR by Cystatin C 17(L) >59 mL/min/1.7 3 [facility] 01/11/2025 11:1 0 AM CDT 01/10/2025 11:00 PM CDT Anuel Del Valle DO LAB BLOOD ORDERABLES Final R esult Performing Organization Address City/[facility]/ZIP Co de Phone Number [facility] [address] [place] [address] * (ABNORMAL) Microscopic Examination (01/11/2025 11:10 AM CDT) WBC, Urine >30(A) 0 - 5 /hpf [facility] Comment:Clumps of leukocytes present. RBC, Urine None seen 0 - 2 /hpf [facility] Squamous Epithelial, Urine None seen 0 - 10 /hpf [facility] Casts None seen None seen /lpf [facility] Bacteria, Urine None seen None seen/Few [facility] 01/11/2025 11:1 0 AM CDT 01/10/2025 11:00 PM CDT Anuel Del Valle DO LAB MICROBIOLOGY - GENERAL O RDERABLES Final Result Performing Organization Address City/[facility] Co de Phone Number [facility] [address] [place] [address] * (ABNORMAL) Protein, Total, Random Urine w/Creatinine (Protein/Creat Ratio) (01/11/2025 11:10 AM CDT) Creatinine, Ur 50.0 Not Estab. mg/dL [facility] Protein, Ur 98.5 Not Estab. mg/dL [facility] Urine Protein/Creati nine Ratio 1,970(H) 0 - 200 mg/g creat [facility] 01/11/2025 11:1 0 AM CDT 01/10/2025 11:00 PM CDT Anuel Del Valle DO LAB URINE ORDERABLES Final R esult Performing Organization Address City/[facility] Co de Phone Number [facility] [address] [place] [address] * (ABNORMAL) Urine Albumin / Creatinine Ratio (01/11/2025 11:10 AM CDT) Albumin, Urine 514.9 Not Estab. ug/mL [facility] Comment: Results confirmed on dilution. Albumin/Creatin ine Ratio 1,030(H) 0 - 29 mg/g creat [facility] Comment: Normal: 0 - 29 Moderately increased: 30 - 300 Severely increased: >300 01/11/2025 11:1 0 AM CDT 01/10/2025 11:00 PM CDT Anuel Del Valle DO LAB URINE ORDERABLES Final R [facility] Performing Organization Address City/[facility] Co de Phone Number [facility] [address] [place] [address] * Vitamin D 25 Hydroxy (01/11/2025 11:10 AM CDT) Vitamin D, 25-OH, Total 38.3 30.0 - 100.0 ng/mL [facility] Comment: Vitamin D deficiency has been defined by the [place] of Medicine and an Endocrine Society practice guideline as a level of serum 25-OH vitamin D less than 20 ng/mL (1,2). The Endocrine Society went on to further define vitamin D insufficiency as a level between 21 and 29 ng/mL (2). 1. IOM ([place] of Medicine). 2010. Dietary reference intakes for [...] Final R esult [facility] [address] [place] [address] * (ABNORMAL) Urinalysis with microscopic (01/11/2025 11:10 AM CDT) Specific [place], Urine 1.012 1.005 - 1.030 [facility] pH Urine 5.5 5.0 - 7.5 [facility] Color, Urine Yellow Yellow [facility] Appearance Urine Cloudy(A) Clear [facility] WBC Esterase Urine 2+(A) Negative [facility] Protein, Ur 2+(A) Negative/Tra ce [facility] Glucose, Ur Negative Negative [facility] Ketones, Urine Negative Negative [facility] Blood Urine Trace(A) Negative [facility] Bilirubin Urine Negative Negative [facility] Urobilinogen Urine 0.2 0.2 - 1.0 mg/dL [facility] Nitrite, Urine Negative Negative [facility] Microscopic Examination See below: [facility] Comment:Microscopic was oskar cated and was performed. 01/11/2025 11:1 0 AM CDT 01/10/2025 11:00 PM CDT us Anuel Del Valle DO LAB URINE ORDERABLES Final R esult [facility] [address] [place] [address] * (ABNORMAL) CBC and Differential (01/11/2025 11:10 AM CDT) WBC 7.2 3.4 - 10.8 x10E3/uL [facility] RBC 4.00 3.77 - 5.28 x10E6/uL [facility] Hemoglobin 10.1(L) 11.1 - 15.9 g/dL [facility] Hematocrit 33.7(L) 34.0 - 46.6 % [facility] MCV 84 79 - 97 fL [facility] MCH 25.3(L) 26.6 - 33.0 pg [facility] MCHC 30.0(L) 31.5 - 35.7 g/dL [facility] RDW 15.2 11.7 - 15.4 % [facility] Platelets 276 150 - 450 x10E3/uL [facility] Neutrophils Relative 63 Not Estab. % [facility] Lymphocytes Relative 24 Not Estab. % [facility] Monocytes 8 Not Estab. % [facility] Eosinophils Relative 4 Not Estab. % [facility] Basophils Relative 1 Not Estab. % [facility] Neutrophils Absolute 4.6 1.4 - 7.0 x10E3/uL [facility] Lymphocytes Absolute 1.7 0.7 - 3.1 x10E3/uL [facility] Monocytes Absolute 0.6 0.1 - 0.9 x10E3/uL [facility] Eosinophils Absolute 0.3 0.0 - 0.4 x10E3/uL [facility] Basophils Absolute 0.0 0.0 - 0.2 x10E3/uL [facility] Immature Granulocytes 0 Not Estab. % [facility] Immature Grans (Absolute) 0.0 0.0 - 0.1 x10E3/uL [facility] 01/11/2025 11:1 0 AM CDT 01/10/2025 11:00 PM CDT Narrative [facility] - 01/12/2025 12:10 PM CDT Specimen Comment: A courtesy copy of this report has been sent to [phone] Anuel Del Valle DO LAB BLOOD ORDERABLES Final R esult [facility] [address] [place] [address] * (ABNORMAL) PTH, Intact (01/11/2025 11:10 AM CDT) PTH 73(H) 15 - 65 pg/mL [facility] 01/11/2025 11:1 0 AM CDT 01/10/2025 11:00 PM CDT Anuel Del Valle DO LAB BLOOD ORDERABLES Final R esult [facility] [address] [place] [address] * Magnesium (01/11/2025 11:10 AM CDT) Magnesium 2.2 1.6 - 2.3 mg/dL [facility] 01/11/2025 11:1 0 AM CDT 01/10/2025 11:00 PM CDT Anuel Del Valle DO LAB BLOOD ORDERABLES Final R esult Performing Organization Address City/[facility] Co de Phone Number [facility] [address] [place] [address] * (ABNORMAL) Hemoglobin A1c (01/11/2025 11:10 AM CDT) Pathologist [facility] Hemoglobin A1C 8.4(H) 4.8 - 5.6 % [facility] Comment: Prediabetes: 5.7 - 6.4 Diabetes: >6.4 Glycemic control for adults with diabetes: <7.0 01/11/2025 11:1 0 AM CDT 01/10/2025 11:00 PM CDT Anuel Del Valle DO LAB BLOOD ORDERABLES Final R [facility] Performing Organization Address City/[facility] de Phone Number [facility] [address] [place] [address] * (ABNORMAL) Renal Function Panel (01/11/2025 11:10 AM CDT) Glucose 156(H) 70 - 99 mg/dL [facility] BUN 76(HH) 8 - 27 mg/dL [facility] Creatinine 2.45(H) 0.57 - 1.00 mg/dL [facility] eGFR CKD-EPI CR 2020 18(L) >59 mL/min/1.7 3 [facility] BUN/Creatinine Ratio 31(H) 12 - 28 [facility] Sodium 140 134 - 144 mmol/L [facility] Potassium 5.4(H) 3.5 - 5.2 mmol/L [facility] Chloride 104 96 - 106 mmol/L [facility] Bicarbonate (CO2) 19(L) 20 - 29 mmol/L [facility] Calcium 9.1 8.7 - 10.3 mg/dL [facility] Phosphorus 4.6(H) 3.0 - 4.3 mg/dL [facility] Albumin 3.8 3.7 - 4.7 g/dL [facility] 01/11/2025 11:1 0 AM CDT 01/10/2025 11:00 PM CDT us Anuel Del Valle DO LAB BLOOD ORDERABLES Final R esult [facility] [address] [place] [address] from Last 3 Months Insurance Care Teams Broaching Machine Set Up Operator Relationship Specialty Start Date End Date Carrie Santana MD [address] [facility] [place] [address] PCP - General Internal Medicine 10/11/24
--- OUTSIDE RECORDS SUMMARY | 2025-02-27 19:50 | XMS_ITS ---
Author Organization [facility] 8 [facility] Address [address] [place] [address] Care Team Providers Care Director Physical Name Role Phone Sarah Hardin MD Unavailable Humaira Amato MD Unavailable [phone] Berna Conte PhD Unavailable [phone] Qi Hope MD Unavailable [phone] Anuel Del Valle DO Unavailable [phone] Ag Santana MD Primary Care Provide r Jason Robles MD Unavailable [phone] Active Problems Problem Noted Date Diagnosed Date [...] 06/02/2022 Assessment & Plan (06/02/2022 10:39 AM ENGINE ASSEMBLER): Sinus bradycardia noted today Pt asymptomatic Advised to decrease Carvedilol to 3.125 mg oral BID 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 Had FNA 05/2019: benign. US completed 05/2020 w/o changes; shows multinodular goiter. TFTs WNL 10/2023. Assessment & Plan (07/13/2023 1:35 PM ENGINE ASSEMBLER): S/p right thyroid nodule FNA biopsy 06/07/2019 Benign cytology Repeat follow up thyroid ultrasound performed 05/2020 noted stable thyroid nodules No compression symptoms Continue clinical monitoring Assessment & Plan (01/06/2023 2:02 PM CDT): No compressive symptoms. Had FNA 05/2019: benign. US completed 05/2020 w/o changes; shows multinodular goiter. Assessment & Plan (06/02/2022 10:38 AM ENGINE ASSEMBLER): S/p right thyroid nodule FNA biopsy 06/07/2019 [...] nodules Assessment & Plan (06/06/2020 8:35 AM ENGINE ASSEMBLER): S/p right thyroid nodule FNA biopsy 06/07/2019 Benign cytology No compression symptoms Repeat follow up thyroid ultrasound performed today in office, noted stable thyroid nodules Assessment & Plan (04/13/2020 9:50 AM ENGINE ASSEMBLER): S/p right thyroid nodule FNA biopsy 06/07/2019 Benign cytology No compression symptoms Repeat follow up thyroid ultrasound during next follow up visit Assessment & Plan (11/21/2019 4:11 PM CDT): S/p right thyroid nodule FNA biopsy 06/07/2019 Benign cytology No compression symptoms Recheck TSH Repeat follow up thyroid ultrasound during next follow up visit Assessment & Plan (03/25/2019 12:33 AM ENGINE ASSEMBLER): Noted right thyroid nodule on PET scan 05/2018 Performed a thyroid ultrasound in office today - see full report Bilateral thyroid nodules Plan to perform FNA biopsy of bilateral thyroid nodules No compression symptoms Abscess of right breast 12/03/2018 Encounter for follow-up surveillance of breast c ancer 11/15/2018 Malignant neoplasm of right female breast 2018 Overview (09/06/2018): Added automatically from request for surgery [id number] 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 Zetia 10mg daily. Chronic problem. Last lipid panel: 08/26/21 CYG=142, KP=422. Labs completed 10/[address] Isidro Del Valle (see note) Assessment & Plan (07/13/2023 1:35 PM ENGINE ASSEMBLER): LDL - high Pt intolerant to statin - on Zetia 10 mg oral daily Assessment & Plan (01/06/2023 1:36 PM CDT): Intolerance to statin therapy. Chronic problem. Last lipid panel: 08/26/21 BKJ=906, YZ=254. Assessment & Plan (06/02/2022 10:36 AM ENGINE ASSEMBLER): LDL - high Pt intolerant to statin [...] daily Assessment & Plan (06/06/2020 8:35 AM ENGINE ASSEMBLER): LDL - high Pt intolerant to statin - on Zetia 10 mg oral daily Assessment & Plan (04/13/2020 9:49 AM ENGINE ASSEMBLER): LDL - high Pt intolerant to statin - on Zetia 10 mg oral daily Assessment & Plan (11/21/2019 4:12 PM CDT): LDL - high Pt intolerant to statin - on Zetia 10 mg oral daily Assessment & Plan (03/21/2019 10:21 PM ENGINE ASSEMBLER): LDL - high Pt intolerant to statin - on Zetia 10 mg oral daily Assessment & Plan (09/14/2018 12:30 PM CDT): LDL - high Pt intolerant to statin - on Zetia 10 mg oral daily Assessment & Plan (06/13/2018 7:15 PM ENGINE ASSEMBLER): LDL - high Pt intolerant to statin [...] eye exams. Had exam last year at [facility] 01/08/23 (no DMR). Labs completed 10/2023 [...] (renal) Assessment & Plan (07/13/2023 1:36 PM ENGINE ASSEMBLER): Chronic, slight worsening A1c 7.6% Reviewed CGM [...] eye exams. Had exam last year at [facility]. Will send letter to get copy [...] infection. Assessment & Plan (06/02/2022 10:44 AM ENGINE ASSEMBLER): Chronic, overall fair controlled for pt age [...] months Assessment & Plan (06/06/2020 8:35 AM ENGINE ASSEMBLER): Chronic, uncontrolled, worsening HbA1c - 8.0 % [...] months Assessment & Plan (04/13/2020 9:49 AM ENGINE ASSEMBLER): Chronic, uncontrolled, worsening HbA1c - 7.2 % [...] months. Assessment & Plan (03/21/2019 10:19 PM ENGINE ASSEMBLER): Diabetes is improving with treatment. A1c - [...] months. Assessment & Plan (06/13/2018 7:15 PM ENGINE ASSEMBLER): Diabetes is chronic, overall well controlled for [...] months. Assessment & Plan (05/25/2017 7:39 PM ENGINE ASSEMBLER): Diabetes is improving, but occasionally complicated by [...] 12/22/2016 Assessment & Plan (07/13/2023 1:35 PM ENGINE ASSEMBLER): Chronic, well controlled Continue amlodipine Assessment & Plan (01/06/2023 1:51 PM CDT): Chronic problem. Controlled on current Carvedilol 6.25mg bid, losartan 100mg daily, amlodipine 10mg daily Managed by Dr Isidro Del Valle (nephro). Has appt next Thursday. Sees him q4 mos. Assessment & Plan (06/02/2022 10:36 AM ENGINE ASSEMBLER): Chronic, well controlled Assessment & Plan (08/26/2021 4:04 PM CDT): Chronic, improving control Pt following with Medical Doctor Md Assessment & Plan (12/03/2020 8:34 PM CDT): Chronic, improving control Pt following with Medical Doctor Md Assessment & Plan (08/13/2020 8:32 PM CDT): Chronic, uncontrolled, worsening Pt following with Medical Doctor Md Advised to start taking Losartan 50 mg as she was prescribed Advised home BP monitoring Assessment & Plan (06/06/2020 8:36 AM ENGINE ASSEMBLER): Chronic, improving with treatment Continue current medications Assessment & Plan (04/13/2020 9:50 AM ENGINE ASSEMBLER): Chronic, improving with treatment Continue current medications Assessment & Plan (11/21/2019 4:12 PM CDT): Chronic, improving with treatment Continue current medications Assessment & Plan (03/21/2019 10:24 PM ENGINE ASSEMBLER): Chronic, improving with treatment Continue current medications Assessment & Plan (09/14/2018 12:30 PM CDT): Well controlled for pt age Assessment & Plan (06/13/2018 7:15 PM ENGINE ASSEMBLER): Well controlled for pt age Assessment & [...] 8:34 PM CDT): Chronic, stable Follows with Medical Doctor Md Assessment & Plan (06/06/2020 8:36 AM ENGINE ASSEMBLER): Chronic, stable Follows with Medical Doctor Md Assessment & Plan (04/13/2020 9:50 AM ENGINE ASSEMBLER): Chronic, stable Follows with Medical Doctor Md Assessment & Plan (11/21/2019 4:10 PM CDT): Chronic, stable Assessment & Plan (03/21/2019 10:21 PM ENGINE ASSEMBLER): Chronic, stable Assessment & Plan (09/14/2018 12:30 PM CDT): Follows with Dr. Leopoldo MCCAIN ( management coordinator ) Assessment & Plan (06/13/2018 7:15 PM ENGINE ASSEMBLER): Follows with Dr. Leopoldo MCCAIN ( management coordinator ) Assessment & Plan (02/15/2018 3:10 PM CDT): Follows with Dr. Leopoldo MCCAIN ( management coordinator ) Assessment & Plan (08/17/2017 11:50 PM CDT): Follows with Dr. Leopoldo MCCAIN ( management coordinator ) Assessment & Plan (12/22/2016 1:55 PM CDT): Follows with Dr. Leopoldo MCCAIN ( management coordinator ) Current Treatment and Therapy Plans No [...] 12/14/2023 Assessment & Plan (06/02/2022 10:36 AM ENGINE ASSEMBLER): Counseled on diet exercises is a limitation Assessment & Plan (08/26/2021 4:04 PM CDT): Counseled on diet exercises is a limitation Assessment & Plan (12/03/2020 8:37 PM CDT): Counseled on diet Exercise is a limitation Assessment & Plan (08/13/2020 8:32 PM CDT): Counseled on diet Exercise is a limitation Assessment & Plan (06/06/2020 8:35 AM ENGINE ASSEMBLER): Counseled on diet and exercise Assessment & Plan (11/21/2019 4:12 PM CDT): Chronic, worsening Discussed about healthy lifestyle habits advise to work on healthy diet, avoid processed foods , increase vegetables and protein and cut back on carb portions and also avoid fruit juices and regular soda and desserts - exercise is a limitation Assessment & Plan (03/21/2019 10:21 PM ENGINE ASSEMBLER): Chronic, worsening Discussed about healthy lifestyle habits [...] weekly Assessment & Plan (06/13/2018 7:17 PM ENGINE ASSEMBLER): Obesity is unchanged Advised to increase physical [...]
[2025-02-27 20:09] LABS: Add Urine Microscopic? YES; Appearance Urine Turbid (Clear); Glucose Urine UA Negative (Negative); Leukocyte Esterase Ur 3+ LEU/UL (Negative); Need Manual Microscopic Reviewed; Nitrate Urine Negative (Negative); Non Pathogenic Casts 0-2; Specific Grav Ur 1.011 (1.001-1.035)
[2025-02-27] MEDS: cefTRIAXone 1 GM in SODIUM CHLORIDE 0.9% IV 50 ML 100 ML IVPB (20:44)
== END 2025-02-27 21:16 | disposition home or self-care (01) ==
PROVIDERS: Physician Assistant; Emergency Provider Student in an Organized Health Care Education/Training Program; PCP Internal Medicine
DX: N39.0 Urinary tract infection, site not specified (principal); R94.31 Abnormal electrocardiogram [ECG] [EKG]; Z85.3 Personal history of malignant neoplasm of breast; Z85.528 Personal history of other malignant neoplasm of kidney; Z79.01 Long term (current) use of anticoagulants
CPT/HCPCS: 36415; 74176; 80053; 81001; 85025; 85610; 85730; 87086; 87186; 93005; 96365; 99284; A9270; J0696